=== PATIENT | male | born 1945 | race Caucasian/White ===

== ENCOUNTER → 2016-12-17 | Outpatient (CLI) | payer BC ==
[~2016-12-17] MED LIST: CLB/200 PO; GLUCTAB7 PO; IBUP-103 PO; MULT-190 PO; MULT-506 PO; PSYL55.43 PO; TAMS0.4C38 PO
== END | disposition home or self-care (01) ==
LOC: C.RDSM 10:55
PROVIDERS: ATTEND Orthopaedic Surgery Sports Medicine
DX: M25.561 Pain in right knee (principal)

== ENCOUNTER → 2017-01-08 | Outpatient (CLI) | payer BC ==
[2017-01-08 10:47] LABS: BLOOD UREA NITROGEN 14 mg/dl (7-18); BUN/CREATININE RATIO 18.7 (10-20); CARBON DIOXIDE 31 mmol/L (21-32); CHLORIDE 106 mmol/L (98-107); CREATININE 0.74 mg/dl (0.60-1.40); GLUCOSE 94 mg/dl (70-99); SODIUM 142 mmol/L (136-145)
[2017-01-08 10:50] LABS: CHOLESTEROL 195 mg/dl (0-200); HDL CHOLESTEROL 66 mg/dl; LDL CHOLESTEROL CALCULATED 112 mg/dl; TRIGLYCERIDES 85 mg/dl (0-150); VERY LOW DENSITY LIPOPROT CALC 17 mg/dl
== END | disposition home or self-care (01) ==
LOC: C.LAB 09:25
PROVIDERS: ATTEND Internal Medicine
DX: Z13.1 Encounter for screening for diabetes mellitus (principal); Z13.220 Encounter for screening for lipoid disorders

== ENCOUNTER → 2017-02-23 | Outpatient (CLI) | payer BC | END | disposition home or self-care (01) | LOC: C.LAB1850 13:10 | PROVIDERS: ATTEND Internal Medicine | DX: Z00.00 Encounter for general adult medical examination without abnormal findings (principal); Z11.59 Encounter for screening for other viral diseases ==

== ENCOUNTER → 2017-08-09 | Outpatient (CLI) | payer BC ==
[2017-08-09 10:01] LABS: ALT/SGPT 28 U/L (12-78); AST/SGOT 12 U/L (15-37); BLOOD UREA NITROGEN 16 mg/dl (7-18); BUN/CREATININE RATIO 18.5 (10-20); CALCIUM 8.9 mg/dl (8.5-10.1); CARBON DIOXIDE 28 mmol/L (21-32); CHLORIDE 105 mmol/L (98-107); CREATININE 0.84 mg/dl (0.60-1.40); GLUCOSE 95 mg/dl (70-99); POTASSIUM 3.8 mmol/L (3.5-5.1); SODIUM 137 mmol/L (136-145)
== END | disposition home or self-care (01) ==
LOC: C.LAB1850 08:45
PROVIDERS: ATTEND Internal Medicine
DX: M19.90 Unspecified osteoarthritis, unspecified site (principal); N40.0 Benign prostatic hyperplasia without lower urinary tract symptoms

== ENCOUNTER → 2017-11-17 | Outpatient (CLI) | payer BC ==
--- NOTE | 2017-11-17 14:00 | DIAGNOSTIC IMAGING REPORT ---
LEFT LOWER EXTREMITY VENOUS DOPPLER HISTORY: Left LEG PAIN,R/O DVT COMPARISON STUDY: None. FINDINGS: There is normal compressibility, flow, and augmentation within the left lower extremity deep venous system. Mild subcutaneous edema within the mid to distal medial thigh. There is also an oval-shaped 4.4 x 4.4 x 1.4 cm heterogeneous area within the deep subcutaneous fat of the anterior knee. This does not demonstrate color flow and favors a hematoma. IMPRESSION: 1. No DVT within the left lower extremity. 2. A 4.4 x 4.4 x 1.4 cm complex cystic area within the deep subcutaneous fat of the anterior knee. This favors a hematoma. Electronically signed by: Wilian Hess M.D. 11/17/2017 1:58 PM Dictated Date/Time: 11/17/2017 1:56 PM
== END | disposition home or self-care (01) ==
LOC: C.ULTR 13:12
PROVIDERS: ATTEND Physician Assistant
DX: S80.02XA Contusion of left knee, initial encounter (principal); X58.XXXA Exposure to other specified factors, initial encounter

== ENCOUNTER → 2017-11-17 | Outpatient (CLI) | payer BC ==
--- NOTE | 2017-11-17 10:57 | DIAGNOSTIC IMAGING REPORT ---
L KNEE 4 OR MORE CLINICAL HISTORY: LEFT KNEE PAIN COMPARISON STUDY: Left knee 02/17/2012. FINDINGS: Severe cartilage space narrowing with lusn-hk-amjv articulation within the right knee. There is 1 cm of lateral subluxation of the right tibia and relation to the femur. Mild cartilage space narrowing within the medial compartment of the left knee with small marginal osteophytes. No fracture or dislocation within the left knee. No significant left knee effusion. Anterior soft tissue swelling. IMPRESSION: 1. Anterior soft tissue swelling within the left knee. No fracture or dislocation within the left knee. 2. Severe right knee and mild left knee osteoarthritis. Electronically signed by: Wilian Hess M.D. 11/17/2017 10:55 AM Dictated Date/Time: 11/17/2017 10:53 AM
== END | disposition home or self-care (01) ==
LOC: C.RDSM 10:45
PROVIDERS: ATTEND Physician Assistant
DX: M25.562 Pain in left knee (principal); M17.0 Bilateral primary osteoarthritis of knee

== ENCOUNTER 2020-01-29 05:17 | Observation (INO) ==
--- NOTE | 2020-01-15 10:16 | PAT Medication Instructions ---
Medication Instructions Date of Service January 15, 2020 Home Medications celecoxib 200 mg capsule 200 mg PO DAILY PRN jgowszacsom-lvxkihzzz-fyd C-Mn 500 mg-400 mg capsule 2 cap PO DAILY htlqhvov-ikl-jzwvr acid 300 mcg-lycopene 600 mcg-lutein 300 mcg tablet 1 tab PO DAILY omega-3 fatty acids 1,000 mg capsule 1,000 mg PO BID tamsulosin 0.4 mg capsule 0.8 mg PO PM naproxen 250 mg PO BID PRN vitamins-lipotropics [Lipo-Flavonoid Plus] 1 tab PO DAILY ASK your surgeon for instructions celecoxib 200 mg capsule 200 mg PO DAILY PRN naproxen 250 mg PO BID PRN STOP taking 2 weeks before surgery (or as soon as possible if surgery is within 2 weeks) uqsxyltgdng-rpckfilum-vcw C-Mn 500 mg-400 mg capsule 2 cap PO DAILY atexjxkg-roh-vpomk acid 300 mcg-lycopene 600 mcg-lutein 300 mcg tablet 1 tab PO DAILY omega-3 fatty acids 1,000 mg capsule 1,000 mg PO BID vitamins-lipotropics [Lipo-Flavonoid Plus] 1 tab PO DAILY Take evening before surgery tamsulosin 0.4 mg capsule 0.8 mg PO PM Other Notes If you have any questions please call us at [phone] or [phone] or [phone] or [phone]
--- NOTE | 2020-01-17 12:22 | Anesthesiology Consultation ---
Date of Service January 17, 2020 Assessment & Plan (1) Encounter for pre-operative examination: - PCP office visit: 01/09/20: "Blood pressures have been controlled outside the office and stable today. He he has had no shortness of breath chest discomfort no exertional signs or symptoms. Medically stable pending preoperative testing which is upcoming once schedule is set firmly." Per PAT assessment on 01/16: Travel screen- traveled to [place] 1 week ago ("stayed in car" while worked at her [employer]/wore mask/travel will be >2 weeks from [facility]), traveled to [place] 01/12 ("looked a ballpark"/no contact with other people). No known COVID positive contacts. No history of COVID testing. No current COVID related symptoms. Per surgeon, patient is scheduled to have COVID testing 3-4 days prior to surgery. Chart Review Chart Review: Acceptable Risk for Surgery (pending preop COVID testing (surgeon ordered)) and Patient seen in Pre Admission Testing Teaching & Discussion Pre-Anesthesia Teaching/Discussion Notes: Instructed NPO after midnight before surgery,except medications with 15 cc of water. Medication instructions provided according to the PAT guidelines. History Surgery Operation Date: 01/29/20 07:00 Proposed Procedures p Right Total Knee Arthroplasty - Chong Sarah Gutierrez MD Height/Weight Height: 5 ft 9 in Weight: 109.6 kg Allergies Allergy/AdvReac Type Severity Reaction Status Date / Time ketoprofen AdvReac Unknown GI UPSET Verified 01/10/20 12:31 meloxicam AdvReac Unknown GI UPSET Verified 01/10/20 12:31 Medications Home Medications Medication Instructions Recorded Confirmed Last Taken celecoxib 200 mg capsule 200 mg PO DAILY PRN 05/09/19 01/10/20 Unknown ifsnsqpyvoy-ogzamniox-xon C-Mn 500 2 cap PO DAILY cap 05/09/19 01/10/20 Unknown mg-400 mg capsule rvlbbnqc-pcg-vqhes acid 300 1 tab PO DAILY tab 05/09/19 01/10/20 Unknown mcg-lycopene 600 mcg-lutein 300 mcg tablet omega-3 fatty acids 1,000 mg 1,000 mg PO BID cap 05/09/19 01/10/20 Unknown capsule tamsulosin 0.4 mg capsule 0.8 mg PO PM cap 05/09/19 01/10/20 Unknown naproxen 250 mg PO BID PRN 01/10/20 01/10/20 Unknown vitamins-lipotropics 1 tab PO DAILY 01/10/20 01/10/20 Unknown [Lipo-Flavonoid Plus] Past Medical History Medical History BPH (benign prostatic hyperplasia) Cataract GERD (gastroesophageal reflux disease) diet controlled History of hypertension Obesity Osteoarthritis Tinnitus Exercise / Class Metabolic Activity III < 4 Walking/Shop/Light housework (uses cane PRN) Past Family History Family History Mother Cardiac disorder Aunt Diabetes Grandmother (Maternal) Diabetes Uncle Melanoma Other No family history of adverse response to anesthesia Denies family history of Ovarian cancer Prostate cancer Myocardial infarction Breast cancer Colorectal cancer Past Surgical History Surgical History H/O oral surgery History of colonoscopy S/P inguinal hernia repair left S/P mastectomy, bilateral elective- 1969 S/P surgical removal of pilonidal cyst Past Anesthesia History No Hx of Anesthesia Complications and No Family Hx of Anesthesia Complications History of PONV No Hx of PONV and Hx of Motion Sickness (mild) Social History Smoking Status: Former smoker tobacco type: cigarettes Do You Dip or Chew Tobacco: No Smoking End Date: quit many years ago Hx Alcohol Use: Yes (social) Alcohol type: beer, wine and hard liquor alcohol intake frequency: 0-2 drinks per day (2 drinks/day) Hx Substance Use: No substance use type: does not use Review of Systems Patient denies chest pain, shortness of breath, fever, chills, cough, wheezing, palpitations. Physical Exam Vital Signs VITALS BP 170/92 P 79 TEMP 98.3 SP02 93%RA RESP 18 PHYSICAL Full neck and c-spine range of motion. Full TMJ range of motion. TMD 3 finger breaths Mallampati Score 3 Dentition: intact, several crowns Lungs: clear throughout to auscultation Cardiac: regular rate and rhythm, no murmurs noted Spine: normal Carotid arteries: negative bruit Extremities: no edema Testing Laboratory Results 01/17/20 12:46 01/17/20 12:46 PT 11.1 Seconds (9.0-12.0) 01/17/20 12:46 INR 1.1 (0.9-1.1) 01/17/20 12:46 APTT 26.9 Seconds (21.0-31.0) 01/17/20 12:46 Blood Type B Negative 01/17/20 12:46 Antibody Screen NEGATIVE 01/17/20 12:46 Electrocardiogram Date: 01/17/20 NSR at 76bpm. Minimal voltage criteria for LVH, may be normal variant. unconfirmed report*
[2020-01-17 13:16] LABS: Basophils # (auto) 0.02 K/uL (0-0.2); Basophils % (auto) 0.3 %; Eosinophils # (auto) 0.05 K/uL (0-0.5); Eosinophils % (auto) 0.8 %; Hematocrit (blood only) 45.8 % (42-52); Hemoglobin 15.8 g/dL (14.0-18.0); Immature Granulocytes # (auto) 0.01 K/uL (0.00-0.02); Immature Granulocytes % (auto) 0.2 %; Lymphocytes # (auto) 1.48 K/uL (1.2-3.4); Mean Corpuscular Hemoglobin 31.4 pg (25-34); Mean Corpuscular Hgb Conc 34.5 g/dL (32-36); Mean Corpuscular Volume 91.1 fL (80-100); Monocytes # (auto) 0.59 K/uL (0.11-0.59); Monocytes % (auto) 9.9 %; Neutrophils # (auto) 3.78 K/uL (1.4-6.5); Neutrophils % (auto) 63.8 %; Platelet Count 145 K/uL (130-400); RDW Coefficient of Variation 13.4 % (11.5-14.5); RDW Standard Deviation 44.1 fL (36.4-46.3); Red Blood Count 5.03 M/uL (4.7-6.1); White Blood Count 5.93 K/uL (4.8-10.8)
[2020-01-17 13:25] LABS: Albumin Level 4.1 gm/dl (3.4-5.0); BUN Creatinine Ratio 20.8 (10-20); Calcium 8.8 mg/dl (8.5-10.1); Creatinine Clr Calc Pharmacy 116.3 ml/min; Est GFR (African American) 109.2; Est GFR (Non-African American) 94.2; Potassium 4.2 mmol/L (3.5-5.1)
[2020-01-17 13:28] LABS: Bilirubin Direct 0.2 mg/dl (0-0.2); Bilirubin,Total 0.9 mg/dl (0.2-1); Total Protein 7.1 gm/dl (6.4-8.2)
[2020-01-17 13:36] LABS: INR 1.1 (0.9-1.1); Partial Thromboplastin Time 26.9 Seconds (21.0-31.0); Prothrombin Time 11.1 Seconds (9.0-12.0)
--- NOTE | 2020-01-17 16:28 | Electrocardiogram Report ---
Test Reason : Blood Pressure : / mmHG Vent. Rate : 076 BPM Atrial Rate : 076 BPM P-R Int : 180 ms QRS Dur : 114 ms QT Int : 398 ms P-R-T Axes : 071 -14 043 degrees QTc Int : 447 ms Normal sinus rhythm Minimal voltage criteria for LVH, may be normal variant Borderline ECG When compared with ECG of 15-AUG-2001 11:57, Vent. rate has increased BY 25 BPM Confirmed by Abiel Rodriguez ([id number]) on 01/17/2020 4:28:11 PM Referred By: Chong Gutierrez Confirmed By:Ebenezer Rodriguez
[2020-01-29] MEDS ORDERED: LR 500ML BOLUS, THEN 15ML/HR IV SCH (06:00)
[2020-01-29] MEDS ORDERED: TRANEXAMIC ACID 1,000 MG **IV Pre-op IV SCH (06:00)
[2020-01-29] MEDS ORDERED: CeleBREX 200 MG CAP PO SCH (06:00)
[2020-01-29] MEDS ORDERED: CEFAZOLIN 2000MG 2,000 MG/15 ML SYR IV SCH (06:00)
[2020-01-29] MEDS ORDERED: LR 60ML/HR IV SCH (06:00)
[2020-01-29] MEDS ORDERED: SCOPOLAMINE 1.5 MG TDSY TD SCH (06:00)
[2020-01-29] MEDS ORDERED: ROPIVACAINE 0.5% HCL/PF 150 MG, BUPIVACAINE 0.5% MPF 30 ML, EPINEPHrine 0.15 MG, Ketoro... INFIL SCH (06:00)
[2020-01-29] MEDS ORDERED: TRANEXAMIC ACID 1,000 MG **IV Intra-op IV SCH (06:10)
[2020-01-29] MEDS ORDERED: BUPIVACAINE 0.5 % 5 MG/1 ML PF 10ML VIAL ONE (06:24)
[2020-01-29] MEDS ORDERED: BUPIVACAINE 0.25% 30 ML VIAL ONE (06:25)
[2020-01-29] MEDS ORDERED: fentaNYL citrate 100 MCG/2 ML VIAL ONE (06:45)
[2020-01-29] MEDS ORDERED: MIDAZOLAM HCL 1 MG/ML 2ML VIAL ONE (06:45)
--- NOTE | 2020-01-29 06:46 | History & Physical Bridge Note ---
Date of Service January 29, 2020 History & Physical Bridge Note I have examined the patient, reviewed the History & Physical and in the interval since the performance of the History & Physical I have noted the following changes of clinical significance: no changes noted Patient is aware of the risks due to COVID-19. Patient is asymptomatic and tested negative for COVID-19.
[2020-01-29] MEDS ORDERED: ORTHO JOINT ANESTHETIC ONE (06:51)
[2020-01-29] MEDS ORDERED: ONDANSETRON INJ 2 MG/ML 2 ML VIAL IV PRN ×2 (07:44→10:38)
[2020-01-29] MEDS ORDERED: ePHEDrine sulfate 50 MG/ML AMP IV PRN (07:44)
[2020-01-29] MEDS ORDERED: ATROPINE SULFATE 0.1 MG/ML 10ML SYR IV PRN (07:44)
[2020-01-29] MEDS ORDERED: PROPOFOL IV EMULSION 10 MG/ML 20 ML VIAL IV ONE ×2 (08:12→09:36)
--- NOTE | 2020-01-29 10:18 | Post Operative Brief Note ---
Immediate Post Op Note v1 Date of Surgery January 29, 2020 Pre & Post Diagnosis Operation Date: 01/29/20 07:00 Pre-Op Diagnosis: Right Knee Osteoarthritis Post-Op Diagnosis: Right Knee Osteoarthritis I identified the patient and participated in the time-out.: Yes Procedure Operation Date: 01/29/20 07:00 Actual Procedures p Right Total Knee Arthroplasty(Right) - Chong Gutierrez MD Surgeon Chong Gutierrez MD Compliance Manager Jacquelin Stevens PA-C (No fellow avail) Estimated Blood Loss 100 Findings Consistent with Post-Op Diagnosis Fluids 2000 cc Specimens Right knee contents Anesthesia Type MAC Spinal Regional Complications none
--- NOTE | 2020-01-29 10:21 | Operative Report ---
Post Operative Report Pre & Post Diagnosis Operation Date: 01/29/20 07:00 Pre-Op Diagnosis: Right Knee Osteoarthritis Post-Op Diagnosis: Right Knee Osteoarthritis I identified the patient and participated in the time-out.: Yes Procedure Operation Date: 01/29/20 07:00 Actual Procedures p Right Total Knee Arthroplasty(Right) - Chong Gutierrez MD Surgeon Chong Gutierrez MD Master Rigger Jacquelin Stevens PA-C (No fellow avail) Estimated Blood Loss 100 Findings See Below Right knee severe degenerative changes, with full thickness loss of articular cartilage MFC, marginal osteophytes tri-compartments and intercondylar notch. Degenerative medial meniscus. Grade 2 changes Lateral compatment. Grade II-III patellofemoral compartment. Pre-op ROM: 5-120 degrees. Post-op ROM: 0-125 degrees. Fluids 2000 cc Specimens Right knee contents Drains n/a Anesthesia Type MAC Spinal Regional Complications none Indications This is a 75-year-old male who has clinical and radiographic findings consistent with osteoarthritis of the a right knee. I recommended that a right total knee replacement be performed. The patient understands the risks of surgery, which include but not limited to: bleeding, infection, re-operation, damage to nerves and arteries, continued knee pain, knee stiffness, DVT, and . The patient understands all of these instructions and explanations, all of his questions have been satisfactorily addressed and the patient has elected to proceed. Informed consent was signed. Description of Procedure IMPLANTS: 1. Femur: Triathlon #5 Right PS. 2. Tibia: Triathlon #5 Munday. 3. Insert: Triathlon #5 x 13 mm PS X3 poly. 4. Patella: Triathlon A29 x 9 mm X3 poly. 5. Simplex cement. PROCEDURE: The patient was taken to the Operating Room and placed in the supine position after spinal and adductor canal nerve block was administered. My initials and a multidisciplinary time-out were used to identify the right leg as the correct operative limb. A tourniquet was placed high in the thigh. Prior to the incision, 2 grams of intravenous Ancef were given. The right leg was then prepped and draped in a standard sterile fashion. An Esmarch was used to exsanguinate the leg and the tourniquet was inflated to 250 mmHg. The planned mid-line 20 cm incision was created exposing the extensor mechanism. The medial parapatellar arthrotomy was made and the patella was everted. The patella was addressed first. It was prepared by reaming from 22 mm down to 12 mm. An A29 button was found to fit best. The peg holes were made in the standard fashion. The femur was addressed next and the guide wander was placed intramedullary. The initial cutting block was placed with 5 degrees of valgus and removing 10 mm for the anterior cut. The cut was made and the 4-in-1 cutting block for a size 5 femur was placed. These cuts and the cuts to place the box were made in the standard fashion. Our attention was then drawn to the tibia cut with the external cutting guide, taking 4 mm from the medial low side. There was sufficient extension and flexion gap to fit a 13 mm spacer. A #5 Tibial baseplate fit well. A trial with a 13 mm spacer showed excellent stability in both flexion and extension, with good ligament balance. Range of motion of 0-125 degrees. The tibial baseplate was pinned and the final preparation for the keel and stem was made. All the trial components were tested again, with good stability and thumbs free tracking of the patella. All components were removed. The tourniquet was deflated. Hemostasis was obtained. 90 ml of total knee cocktail were injected into the soft tissues and periosteum. A bone plug was placed in the femur and covered with bone wax. After a 15 minute break, the limb was exsanguinated again and the tourniquet was re-inflated. All surfaces were copiously irrigated prior to placement of the components. The femoral component and Tibial baseplate were placed first and an 11 mm trial placed. Next the patellar button was placed using the Simplex cement. Once the cement had cured, trialing an 11 and a [address], the 13 mm t rial poly had excellent range of motion and stability. The 13 mm X3 poly was placed. The extensor mechanism was closed with 1-0 and 0 Vicryl with the knee bent approximately 60 degrees in a standard fashion. The peritenon and deep fascia was closed with 2-0 Vicryl. The subcutaneous layer was closed with 3-0 Vicryl. The skin was closed with Zipline. The limb was cleaned and dried. 4x4 dressing was placed over top followed by ABDs, sterile Webril, and a foot to thigh Rm bandage. The patient was then transferred to the Recovery Room in stable condition. The sponge and needle counts were correct. POST-OP INSTRUCTIONS: The patient will be WBAT. The patient will be admitted to the hospital. The patient will use the knee immobilizer when ambulating and standing until good quad control is achieved. Labs will be obtained during the stay. DVT prophylaxis will included aspirin for 6 weeks, TEDs, and mechanical foot pumps. The dressing will be changed prior to their discharge or postop day #2 and covered with a Silverlon dressing, whichever comes first. I attest to the content of the Intraoperative Record and any orders documented therein. Any exceptions are noted below.
[2020-01-29] MEDS ORDERED: bisacodyL 10 MG SUPP PR PRN (10:38)
[2020-01-29] MEDS ORDERED: NALOXONE HCL 0.4 MG/1 ML VIAL/CARP IV PRN (10:38)
[2020-01-29] MEDS ORDERED: METOCLOPRAMIDE HCL INJ 5 MG/ML 2 ML VIAL IV PRN (10:38)
[2020-01-29] MEDS ORDERED: ALUMINUM/MAGNESIUM SUSP 30 ML UDC PO PRN (10:38)
[2020-01-29] MEDS ORDERED: HYDROmorphone INJ 0.5 MG/0.5 ML SYR IV PRN (10:38)
[2020-01-29] MEDS ORDERED: DiphenhydrAMINE HCL 50 MG/ML VIAL IV PRN (10:38)
[2020-01-29] MEDS ORDERED: MAGNESIUM HYDROXIDE SUSP 30 ML UDC PO PRN (10:38)
--- NOTE | 2020-01-29 10:49 | Operative Report ---
Post Operative Report Pre & Post Diagnosis Operation Date: 01/29/20 07:00 Pre-Op Diagnosis: Right Knee Osteoarthritis Post-Op Diagnosis: Right Knee Osteoarthritis I identified the patient and participated in the time-out.: Yes Procedure Operation Date: 01/29/20 07:00 Actual Procedures p Right Total Knee Arthroplasty(Right) - Chong Gutierrez MD Surgeon Chong Gutierrez MD Social Service Technician Jacquelin Stevens PA-C (No fellow avail) Estimated Blood Loss 100 Findings Consistent with Post-Op Diagnosis Specimens soft tissue and bone Complications none Indications See Dr Gutierrez operatve report Description of Procedure See Dr Gutierrez operative report. I was assistant teacher primary during entire case to include prepping, draping, limb and instrument handling, wound closure, dressings. I attest to the content of the Intraoperative Record and any orders documented therein. Any exceptions are noted below.
--- NOTE | 2020-01-29 10:51 | XRay Report ---
XR knee RT 1 or 2V routine CLINICAL HISTORY: Surgical Post Op COMPARISON: None. DISCUSSION: Anatomic alignment posttotal right knee arthroplasty. Good contact between prosthetic and underlying bone. Expected soft tissue postoperative change IMPRESSION: Anatomic alignment posttotal right knee arthroplasty. ACT 112: Negative or not required by law. The above report was generated using voice recognition software. It may contain grammatical, syntax or spelling errors. Electronically signed by: Heri Pfeiffer M.D. 01/29/2020 10:50 AM
[2020-01-29] MEDS: SODIUM CHLORIDE 0.9% 1000ML 1,000 ML IV SCH ×2 (12:30→21:17)
--- NOTE | 2020-01-29 12:30 | Anesthesiology Progress Note ---
Date of Service January 29, 2020 Anesthesia Post Procedure Vital Signs Vital Signs: Temp Pulse Pulse Pulse Resp BP BP 01/29/20 12:28 68 17 155/78 H 01/29/20 11:48 36.3 C L 62 17 152/79 H 01/29/20 11:18 36.4 C L 66 18 170/92 H 01/29/20 10:55 67 19 142/82 H 01/29/20 10:45 68 20 148/85 H 01/29/20 10:35 68 16 139/80 01/29/20 10:29 36.4 C L 75 12 140/71 01/29/20 05:54 36.9 C 94 H 20 159/97 H Pulse Ox 01/29/20 12:28 96 01/29/20 11:48 100 01/29/20 11:18 98 01/29/20 10:55 96 01/29/20 10:45 94 01/29/20 10:35 96 01/29/20 10:29 96 01/29/20 05:54 99 Pain Intensity Right Knee: Pain Intensity: 0 Transfer of Care Handoff Completed per policy Notes Mental Status: alert / awake / arousable and participated in evaluation Nausea / Vomiting: adequately controlled Pain: adequately controlled Airway Patency, RR, SpO2: stable & adequate BP & HR: stable & adequate Hydration State: stable & adequate Neuraxial Anesthesia: was administered and sensory block is resolving Anesthetic Complications: no major complications apparent and Pt Satisfied with anesthetic care
[2020-01-29] MEDS: ACETAMINOPHEN 500 MG TAB PO SCH ×2 (14:20→22:50)
[2020-01-29] MEDS: OXYCODONE HCL IR 5 MG TAB (IMMEDIATE RELEASE) PO PRN ×2 (15:10→22:53)
[2020-01-29] MEDS: CEFAZOLIN 2000MG 2,000 MG/15 ML SYR IV SCH (16:35)
[2020-01-29] MEDS: CHECK SCOPOLAMINE PATCH PLACEMENT SCH (16:36)
[2020-01-29] MEDS ORDERED: NURSING DECISION MEDICATION ONE (16:41)
[2020-01-29] MEDS ORDERED: COUGH DROP (SUGAR FREE) LOZ 24 LOZ/1 BOX BUCCAL PRN (16:45)
--- NOTE | 2020-01-29 16:48 | Orthopedic Progress Note ---
Date of Service January 29, 2020 Assessment & Plan (1) Osteoarthritis: POD #0 s/p R TKA, doing well. Resume diet. Continue pain control. WBAT RLE with Walker. Immobilizer when ambulating until demonstrates good quad tone, no more than 48 hours. PT/OT. DVT Prophylaxis: ASA BID x 6 weeks. TEDs for 2 weeks. Foot pumps while in hospital. Dressing: change to Silverlon prior d/c or POD #2 whichever comes first. D/C planning. Present on Admission?: Yes Admission and Anticipated Discharge Date Admission Date: January 29, 2020 Subjective Doing well Review of Systems Review of Systems: All systems reviewed & are unremarkable except as noted in HPI & below Physical Exam Physical Exam: RLE: dressing clean, dry, intact. BCR < 2 sec. Sensation to light touch intact. wiggling toes and ankle. calf soft and non-tender. Results & Data ([facility]) Vital Signs (Past 12 Hours) Vital Signs Temp Pulse Pulse Pulse Resp BP BP 01/29/20 15:01 36.5 C 63 18 135/88 01/29/20 14:18 76 16 143/82 H 01/29/20 13:20 78 16 125/73 01/29/20 12:28 68 17 155/78 H 01/29/20 11:48 36.3 C L 62 17 152/79 H 01/29/20 11:18 36.4 C L 66 18 170/92 H 01/29/20 10:55 67 19 142/82 H 01/29/20 10:45 68 20 148/85 H 01/29/20 10:35 68 16 139/80 01/29/20 10:29 36.4 C L 75 12 140/71 01/29/20 05:54 36.9 C 94 H 20 159/97 H Pulse Ox 01/29/20 15:01 92 01/29/20 14:18 95 01/29/20 13:20 97 01/29/20 12:28 96 01/29/20 11:48 100 01/29/20 11:18 98 01/29/20 10:55 96 01/29/20 10:45 94 01/29/20 10:35 96 01/29/20 10:29 96 01/29/20 05:54 99 Diagnostic Findings RADIOGRAPHS: AP & Lateral Right knee show a well cemented Right TKA.
[2020-01-29] MEDS: FERROUS GLUCONATE 324 MG TAB PO SCH (18:07)
[2020-01-29] MEDS: ASCORBIC ACID 500 MG TAB PO SCH (18:08)
[2020-01-29] MEDS ORDERED: TAMSULOSIN HCL 0.4 MG CAP PO SCH (21:00)
[2020-01-29] MEDS ORDERED: SENNA 8.6 MG TAB PO SCH (21:00)
[2020-01-29] MEDS: PSYLLIUM 58.6% POWDER PACKET PO SCH (21:09)
[2020-01-29] MEDS: OMEGA-3 (PURIFIED FISH OIL) 1 GM CAP PO SCH (21:09)
[2020-01-29] MEDS: DOCUSATE SODIUM 100 MG CAP PO SCH (21:10)
[2020-01-30] MEDS: CEFAZOLIN 2000MG 2,000 MG/15 ML SYR IV SCH (00:05)
[2020-01-30] MEDS: OXYCODONE HCL IR 5 MG TAB (IMMEDIATE RELEASE) PO PRN ×2 (03:21→09:23)
[2020-01-30] MEDS: ACETAMINOPHEN 500 MG TAB PO SCH ×2 (05:30→13:17)
[2020-01-30 06:11] LABS: Hematocrit (blood only) 34.9 % (42-52); Mean Corpuscular Hemoglobin 31.5 pg (25-34); Mean Corpuscular Hgb Conc 34.4 g/dL (32-36); Mean Corpuscular Volume 91.6 fL (80-100); Mean Platelet Volume 10.8 fL (7.4-10.4); Platelet Count 131 K/uL (130-400); RDW Coefficient of Variation 13.3 % (11.5-14.5); RDW Standard Deviation 44.6 fL (36.4-46.3); Red Blood Count 3.81 M/uL (4.7-6.1); White Blood Count 10.94 K/uL (4.8-10.8)
[2020-01-30 06:33] LABS: BUN Creatinine Ratio 17.3 (10-20); Calcium 8.2 mg/dl (8.5-10.1); Creatinine Clr Calc Pharmacy 107.9 ml/min; Est GFR (African American) 106.1; Est GFR (Non-African American) 91.5; Potassium 4.2 mmol/L (3.5-5.1)
[2020-01-30] MEDS ORDERED: MULTIVITAMIN TAB PO SCH (09:00)
[2020-01-30] MEDS ORDERED: MULTIVIT MIN FA LYCOPEN LUTEIN PO SCH (09:00)
[2020-01-30] MEDS ORDERED: ASPIRIN 81 MG ECTAB PO SCH (09:00)
[2020-01-30] MEDS ORDERED: VITAMINS LIPOTROPICS PO SCH (09:00)
[2020-01-30] MEDS: DOCUSATE SODIUM 100 MG CAP PO SCH (09:23)
[2020-01-30] MEDS: OMEGA-3 (PURIFIED FISH OIL) 1 GM CAP PO SCH (09:24)
[2020-01-30] MEDS: ASCORBIC ACID 500 MG TAB PO SCH (09:24)
[2020-01-30] MEDS: CHECK SCOPOLAMINE PATCH PLACEMENT SCH ×2 (09:24)
[2020-01-30] MEDS: FERROUS GLUCONATE 324 MG TAB PO SCH (09:24)
[2020-01-30] MEDS: PSYLLIUM 58.6% POWDER PACKET PO SCH (09:25)
--- NOTE | 2020-01-30 09:40 | Orthopedic Progress Note ---
Date of Service January 30, 2020 Assessment & Plan (1) Osteoarthritis: POD #1 s/p R TKA, Continue regular diet. Continue pain control. WBAT RLE with Walker. Immobilizer when ambulating until demonstrates good quad tone, no more than 48 hours. PT/OT. DVT Prophylaxis: ASA 81mg BID x 6 weeks. TEDs for 2 weeks. Foot pumps while in hospital. Dressing changed to compression dressing with 4x4s and ABDs. Rm from toes to thigh. Will check on patient this PM. IF dressings intact, will plan on DC today in PM after seen by PT and case management and f/u in office on Tuesday for wound check and change to Silverlon. If dressings continue to be saturated may recommend another night in hospital. D/C planning : Pt wishes to go home with HHPT. I, Dr. Gutierrez, saw and examined the patient and agree with the above findings and plan of care discussed with my PA. Patients dressing was intact this pm. Ok to discharge home today. Admission and Anticipated Discharge Date Admission Date: January 29, 2020 Subjective Patient sitting up in bed eating breakfast. Has been to bathroom twice. Had bowel movement and able to urinate. Took 2 doses oy oxycodone since surgery. Pain fairly controlled. Tolerating PO diet and fluids. His dressing was reinforced early this AM by nursing due to saturated dressings. PT/OT and case liner havent yet seen patient today. Denies f/c/s, CP, SOB, B/B issues, N/V, lightheadedness or dizziness. Physical Exam Physical Exam: Right post op dressing saturated with blood thru RM and reinforced dressing. Upon removal, zip line intact. Distal > proximal area of drainage noted. NV intact to B LE other than altered sensation around R knee incision. Palpable DP and PT pulses B. B calves are soft and neg suzanne. Patient able to wiggles toes and ankles. Brisk capillary refill. 1+ pitting edema. B foot pumps on. L LE TEDS donned. Results & Data ([facility]) Vital Signs (Past 12 Hours) Vital Signs Temp Pulse Resp BP Pulse Ox 01/30/20 07:05 37.0 C 81 18 136/78 91 01/30/20 02:56 36.8 C 82 16 145/79 H 92 01/29/20 23:06 36.8 C 68 16 164/92 H 95 Laboratory Results 01/30/20 01/30/20 Range/Units 05:33 05:33 WBC 10.94 H (4.8-10.8) K/uL RBC 3.81 L (4.7-6.1) M/uL Hgb 12.0 L (14.0-18.0) g/dL Hct 34.9 L (42-52) % MCV 91.6 (80-100) fL MCH 31.5 (25-34) pg MCHC 34.4 (32-36) g/dL RDW Std Deviation 44.6 (36.4-46.3) fL RDW Coeff of Florin 13.3 (11.5-14.5) % Plt Count 131 (130-400) K/uL MPV 10.8 H (7.4-10.4) fL Sodium 138 (136-145) mmol/L Potassium 4.2 (3.5-5.1) mmol/L Chloride 107 (98-107) mmol/L Carbon Dioxide 23 (21-32) mmol/L Anion Gap 8.0 (3-11) BUN 13 (7-18) mg/dl Creatinine 0.74 (0.6-1.4) mg/dl Est Cr Clr Drug Dosing 107.9 ml/min Est GFR ( Amer) 106.1 Est GFR (Non-Af Amer) 91.5 BUN/Creatinine Ratio 17.3 (10-20) Glucose 105 H (70-99) mg/dl Calcium 8.2 L (8.5-10.1) mg/dl
--- NOTE | 2020-01-30 15:51 | Discharge Summary ---
Date of Service January 30, 2020 Principal Diagnosis Right Knee Osteoarthritis; S/P Right Total Knee Replacement Discharge Data Allergies Allergy/AdvReac Type Severity Reaction Status Date / Time ketoprofen AdvReac Mild GI UPSET Verified 01/29/20 05:49 meloxicam AdvReac Mild GI UPSET Verified 01/29/20 05:49 Consultations 01/29/20 10:38 Consult Case Management - Discharge Planning Routine Procedures Performed Operation Date: 01/29/20 07:00 Actual Procedures p Right Total Knee Arthroplasty(Right) - Chong Gutierrez MD Ordered Studies 01/29/20 05:00 US - OR guided needle placemen Routine Hospital Course (1) Osteoarthritis: 75 yr old man admitted for 23hour observation to [facility] s/p RTKR on 01-29-20. Spinal anesthesia. Ancef pre and post-op. Tolerated procedure and anesthesia without complications. While in-house DVT prophylaxis included ASA 81mg BID, TEDS, and foot pumps. Patient's pain controlled with PO meds. Tolera robi PO diet and fluids. Able to void and had bowel movement. Received physical therapy WBAT RLE with walker with knee immobilizer x 48hs post-op. Seen by social services specialist. Patients post-op labs WNL and VS stable . Patient did have suturation of blood through dressing which was reinforced early AM POD 1. On POD 1, dressings were changed to compression dressings and no further saturation noted. Patient deemed stable for discharge on POD 1 in afternoon. He will go home with PT. Dressing to remain on clean, and dry until seen in office on 01-28 for wound check and dressing change to silverlon wateproof dressing. Patient to wear TEDS x 2wks. ASA 81mg BID x 6wks. WBAT with walker as needed with knee immobilizer for 48hrs when ambulating or until good control. Continue ice for pain and swelling. Additional meds ordered include Oxycodone for severe pain, tylenol for mild to moderate pain, Vit C x 2wks, and Iron x 2wk. Scripts were sent to his pharmacy. Patient advised to call office with any questions or concerns at [phone]. Please see Discharge Plan. Total Time Total Time Spent Total Time Spent (In Minutes): 20minutes Discharge Plan Discharge Items Patient Disposition: Home - Home Health Services Reason For Visit: Right Knee Osteoarthritis Discharge Diagnosis: S/P Right total knee Arthroplasty Activity: Per Instructions section Bathing Comment: keep dressings and SPENSRE dry on until follow on Tuesday 6-5 Exercise Comment: per physical therapy protocol Driving/Machine Use: wait until seen in office Weightbearing: Full weightbearing Weightbearing Comment: to right leg with use of walker as needed Non-emergency contact: Surgeon Call non-emergency contact if: your pain is not controlled, your temperature is above 101.5, your wound has increased redness and your wound has increased drainage Follow-up/Referrals: Pro,Skyler Zhang MD [Primary Care Provider] - Chong Gutierrez MD [Physician] - 02/01/20 1:00 pm (with Farheen Stevens PA-C for dressing change) Diet: Regular Addtl Attending Provider Instructions: Post-operative Instructions Pain Expect to be in a fair amount of pain after surgery. Remember, our goal is not to eliminate your pain, but to make it tolerable. It is a good idea to stay ahead of your pain by taking the medications you were prescribed once you get home. Typically, the pain starts improving 3-7 days after surgery. You should start weaning off the narcotic pain medication (oxycodone) as soon as your pain improves. Please call our office if your pain is not adequately controlled. You can take tylenol 1000mg every 8hrs for mild to moderate pain. Ice Ice your operative site at least 5 times a day for 15-30 minutes at a time. Make sure you have a thin cloth between the ice or cooling unit and your skin to prevent gilliam bite. This is especially important if you received a nerve block. Continue icing your operative site for the first 5-7 days after surgery, then as needed. Diet/Nausea/Vomiting Start by drinking clear liquids and eating crackers. If you can tolerate this, then you may resume your normal diet. If you feel nauseated or vomit, take Zofran/ondansetron (if prescribed). Please call our office if you have intractable nausea or vomiting, or, if after hours, you may go to the Emergency Room for help. Constipation Constipation is a common side effect of narcotic pain medication. If you have not had a bowel movement within 2 days after surgery, we recommend purchasing an over the counter laxative such as Milk of Magnesia, Dulcolax, or Miralax from a local pharmacy, and taking it as instructed. Call our clinic if any questions. Weight bearing and Range of Motion. Weightbearing as tolerated with walker. No restrictions with range of motion. *KNEE IMMOBILIZER x 48hrs AFTER SURGERY WHILE AMBULATING AND THEN CAN STOP (CONTINUE IF YOU DO NOT HAVE GOOD QUAD CONTROL)* Physical therapy Initially you will start with home health physical therapy. At our first visit with at our office we will provide you with script for outpatient physical therapy. Wound care and showering We will inspect your dressings and wound on 01-31 at 1pm. At that visit will plan to change to a waterproof silverlon dressing. Until then please keep dressing/SPENSER clean and dry. If you shower, you will need to cover with garbage bag or such. It is normal to see some dried blood on the dressing. However, if it becomes saturated please call the office. ROBI stockings If you were given white stockings, these are to be worn at all times except to shower and sleep (on both legs) for the first 2 weeks after surgery. We will discuss removal at your first follow-up appointment. Driving You may not drive while taking narcotic pain medication. We will discuss return to driving at your first follow-up appointment. Return To Work Your return to work depends on what surgery was done and what type of work you do. Please bring any paperwork your employer needs completed to your first post-operative visit. Also, bring a description of your job duties, as this hel ps us to understand what risks you may face at work. Travel Avoid long distance travel (greater than 1 hour) in airplanes and cars for the first 6 weeks after surgery if possible. If you must travel, please let us know so we can discuss additional measures to prevent blood clots. Follow-up Scheduled with Farheen Stevens PA-C on 01-31 at 1pm The above appointment is for a wound check and dressing change. When to call the office [phone] It is normal to have swelling and bruising in the limb that was operated on. This will improve with time. It is also normal to have fevers for the first 2 days after surgery. Reasons you should call your doctor include: Uncontrolled pain; Nausea, vomiting, or constipation that does not improve with medication; Fevers over 101.5, chills, sweats; Drainage or bleeding from the wound; Foul odor; Spreading areas of redness; Any other concerns. NEW MEDICATIONS: new medications will be sent to your pharmacy: oxycodone, iron, vit c, tylenol, aspirin. Pending Studies at Discharge: No Stand-Alone Forms: [facility], Opioid Pain Management, Smoking Cessation Medications and DC Order Prescriptions: New aspirin 81 mg Tablet,Delayed Release (Dr/Ec) 81 mg PO BID 42 Days Qty: 84 RF: 0 acetaminophen 500 mg Tablet 1,000 mg PO Q8 PRN (Reason: pain) Qty: 60 RF: 0 ascorbic acid (vitamin C) [Vitamin C] 500 mg Tablet 500 mg PO BIDM 14 Days Qty: 28 RF: 0 oxycodone 5 mg Tablet 5 - 10 mg PO Q4H PRN (Reason: pain) Qty: 30 RF: 0 ferrous gluconate 324 mg (38 mg iron) Tablet 324 mg PO BIDM 14 Days Qty: 28 RF: 0 Continued tamsulosin 0.4 mg capsule 0.8 mg PO PM RF: 0 Centrum Silver Men 300-600-300 mcg tablet 1 tab PO DAILY RF: 0 oyxvtcskipy-cltyiajst-cnn C-Mn [Glucosamine-Chondroitin Complx] 500-400 mg capsule 2 cap PO DAILY RF: 0 omega-3 fatty acids [Fish Oil Concentrate] 1,000 mg capsule 1,000 mg PO BID RF: 0 celecoxib [Celebrex] 200 mg capsule 200 mg PO DAILY PRN (Reason: arthritis) RF: 0 Lipo-Flavonoid Plus 200-100 mg Tablet 1 tab PO DAILY RF: 0 Metamucil 3.4 gram/5.4 gram Powder 1 tbsp PO BID RF: 0 Discontinued naproxen 250 mg Tablet 250 mg PO BID PRN (Reason: Pain) RF: 0 Discharge Orders: Discharge Order (Routine); Ordered 01/30/20 Ordered By: Josy Gomez/Other Patient Handouts: Knee How Works, Arthroscopy Knee, Tips Knee Post Op, Knee Replacement Recovery at Home, Joint Surg Home Safety, Knee Replacement Knee Health Admission Data Admit Date/Time: 01/29/20 10:38 Attending Provider: Chong Gutierrez Admit Provider: Chong Gutierrez Primary Care Provider: Skyler Rodriguez Other Providers: [facility],Home Healthcare Other Interventions: Discharge Summary Assessment (RN) Last Done: 01/30/20 13:40 DC Date/Time DO NOT enter until pt leaves facility: 01/30/20 15:05
== END 2020-01-30 15:05 | disposition home health service (06) ==
LOC: 3N 05:17 → ASU 05:17

== ENCOUNTER 2020-12-16 05:10 | Observation (INO) ==
--- NOTE | 2020-11-26 10:01 | PAT Medication Instructions ---
Medication Instructions Date of Service November 26, 2020 Home Medications Medication Instructions Recorded diphenhydramine 25 2 tab PO .qhs 30 Days #60 tab 04/28/20 mg-acetaminophen 500 mg tablet celecoxib 200 mg capsule 200 mg PO DAILY PRN #90 cap 05/27/20 famotidine 40 mg tablet 60 mg PO DAILY 90 Days #135 tab 05/27/20 pchgsuiyhae-hasohbibj-wgf C-Mn 500 mg-400 mg capsule 1 cap PO BID svoxzosk-fwu-cwoii acid 300 mcg-lycopene 600 mcg-lutein 300 mcg tablet 1 tab PO QAM Lipo-Flavonoid Plus 1 tab PO BID Metamucil 1 tbsp PO BID diphenhydramine 25 mg-acetaminophen 500 mg tablet 2 tab PO .qhs polyethylene glycol 3350 17 gram/dose oral powder 17 gm PO DAILY PRN tamsulosin 0.4 mg capsule 0.4 mg PO BID celecoxib 200 mg capsule 200 mg PO DAILY PRN famotidine 40 mg tablet 60 mg PO DAILY acetaminophen [Tylenol Extra Strength] 500 mg PO QID PRN diclofenac sodium [Voltaren] 4 g TOPICAL QID PRN lisinopril 5 mg PO QAM melatonin 5 mg PO HS ASK your surgeon for instructions celecoxib 200 mg capsule 200 mg PO DAILY PRN STOP taking 2 weeks before surgery (or as soon as possible if surgery is within 2 weeks) ueihijvawjf-wdslzhfvt-otw C-Mn 500 mg-400 mg capsule 1 cap PO BID tpdlcgec-cmv-srpca acid 300 mcg-lycopene 600 mcg-lutein 300 mcg tablet 1 tab PO QAM Lipo-Flavonoid Plus 1 tab PO BID STOP taking 24 hours before surgery diclofenac sodium [Voltaren] 4 g TOPICAL QID PRN DO NOT take the morning of surgery Metamucil 1 tbsp PO BID polyethylene glycol 3350 17 gram/dose oral powder 17 gm PO DAILY PRN lisinopril 5 mg PO QAM Take morning of surgery With a small sip of water, OTHERWISE NOTHING TO EAT OR DRINK AFTER MIDNIGHT: tamsulosin 0.4 mg capsule 0.4 mg PO BID acetaminophen [Tylenol Extra Strength] 500 mg PO QID PRN (okay to take up to 4 h ours prior to surgery if needed) famotidine 40 mg tablet 60 mg PO DAILY Take evening before surgery Metamucil 1 tbsp PO BID diphenhydramine 25 mg-acetaminophen 500 mg tablet 2 tab PO .qhs polyethylene glycol 3350 17 gram/dose oral powder 17 gm PO DAILY PRN (if needed) tamsulosin 0.4 mg capsule 0.4 mg PO BID acetaminophen [Tylenol Extra Strength] 500 mg PO QID PRN(if needed) melatonin 5 mg PO HS Other Notes If you have any questions please call us at [phone] or [phone] or [phone] or [phone]
--- NOTE | 2020-11-27 11:11 | Anesthesiology Consultation ---
Date of Service November 27, 2020 Assessment & Plan (1) Encounter for pre-operative examination: COVID Status: As of 11/27 assessment, patient denies travel to endemic area, known exposure/sick contacts, or symptoms of COVID19. Patient instructed that they and their household members must follow strict social distancing guidelines, wear a mask in public and avoid travel/events/gatherings for 14 days prior to surgery. Patient and his will be going to [place] 12/01-12/04, staying at a hotel and touring the area (shopping/restaurants). Patient was advised to be extremely cautious, especially at restaurants. Preoperative COVID19 testing to be completed 12/09, which will be 5 days after his return from [place], so any exposure will likely show up on the test. Patient made aware to self-isolate as much as possible between COVID testing and surgery (he states he will strictly quarantine). Patient is fully vaccinated. S/P R TKA 01/29/20 @ [facility] -- SAB + AC block, no complications, patient was very pleased with anesthetic. Chart Review Chart Review: Acceptable Risk for Surgery (pending PCP clearance) and Patient seen in Pre Admission Testing Teaching & Discussion Instructed NPO after midnight before surgery, except medications with 15 cc of water. Medication instructions provided according to the PAT guidelines. History Surgery Operation Date: 12/16/20 07:00 Proposed Procedures p Left Total Knee Arthroplasty - Chong Sarah Gutierrez MD Height/Weight Height: 5 ft 10.5 in Weight: 109.2 kg Allergies Allergy/AdvReac Type Severity Reaction Status Date / Time ketoprofen AdvReac Mild GI UPSET Verified 11/17/20 12:14 meloxicam AdvReac Mild GI UPSET Verified 11/17/20 12:14 Medications Home Medications Medication Instructions Recorded Confirmed Last Taken lwvcgumgesw-kzxnzxmto-hqp C-Mn 500 1 cap PO BID cap 05/09/19 11/17/20 01/28/20 09:30 mg-400 mg capsule woyuaoqq-uzh-drkmy acid 300 1 tab PO QAM tab 05/09/19 11/17/20 01/28/20 09:30 mcg-lycopene 600 mcg-lutein 300 mcg tablet Lipo-Flavonoid Plus 1 tab PO BID 01/10/20 11/17/20 01/24/20 Metamucil 1 tbsp PO BID 01/29/20 11/17/20 01/28/20 21:30 diphenhydramine 25 2 tab PO .qhs 30 Days #60 tab 04/28/20 11/17/20 Unknown mg-acetaminophen 500 mg tablet polyethylene glycol 3350 17 17 gm PO DAILY PRN 04/28/20 11/17/20 Unknown gram/dose oral powder tamsulosin 0.4 mg capsule 0.4 mg PO BID cap 05/13/20 11/17/20 05/13/20 08:00 celecoxib 200 mg capsule 200 mg PO DAILY PRN #90 cap 05/27/20 11/17/20 Unknown famotidine 40 mg tablet 60 mg PO DAILY 90 Days #135 tab 05/27/20 11/17/20 Unknown acetaminophen [Tylenol Extra 500 mg PO QID PRN 11/17/20 11/17/20 Unknown Strength] diclofenac sodium [Voltaren] 4 g TOPICAL QID PRN 11/17/20 11/17/20 Unknown lisinopril 5 mg PO QAM 11/17/20 11/17/20 Unknown melatonin 5 mg PO HS 11/17/20 11/17/20 Unknown Past Medical History Medical History Benign prostatic hyperplasia with elevated prostate specific antigen (PSA) Bilateral tinnitus Cataract Eustachian tube dysfunction GERD (gastroesophageal reflux disease) HTN (hypertension), benign Obesity Osteoarthritis Sensorineural hearing loss (SNHL) of both ears Urinary frequency Exercise / Class Metabolic Activity II 4-5 Yardwork/Stairs/Walk up hill (No SOB or CP with 1 FOS, just needs hand rail or cane) Past Family History Family History Mother Cardiac disorder Aunt Diabetes Grandmother (Maternal) Diabetes Uncle Melanoma Other No family history of adverse response to anesthesia Denies family history of Ovarian cancer Prostate cancer Myocardial infarction Breast cancer Colorectal cancer Past Surgical History Surgical History H/O knee surgery right total replacement H/O oral surgery tooth extraction History of colonoscopy S/P inguinal hernia repair left S/P mastectomy, bilateral elective- 1969 S/P surgical removal of pilonidal cyst Past Anesthesia History No Hx of Anesthesia Complications and No Family Hx of Anesthesia Complications History of PONV No Hx of PONV and No Hx of Motion Sickness Social History Smoking Status: Former smoker tobacco type: cigarettes Do You Dip or Chew Tobacco: No Smoking End Date: 1969 Hx Alcohol Use: Yes Alcohol type: beer, wine and hard liquor alcohol intake frequency: 0-2 drinks per day (1-2) Hx Substance Use: No substance use type: does not use Review of Systems Pt denies any recent chest pain, shortness of breath, palpitations, cough, fever, URI, or uncontrolled acid reflux (controlled on Pepcid). Physical Exam Vital Signs BP: 153/90 (Pt takes BP every night, almost always normal) P: 71bpm SPO2: 97% RA T: 98.4 F R: 16 ENMT Mouth: + dental restorations (many crowns); no chipped teeth and no loose teeth Thyromental Distance: > or= 3.5 Finger Breadths Mallampati Class: II Neck normal visual inspection and + limited neck extension (mildly) Respiratory normal respiratory effort, lungs clear to auscultation Cardiovascular RRR, no murmur, no edema Testing Laboratory Results 11/27/20 11:35 11/27/20 11:35 PT 10.5 Seconds (9.0-12.0) 11/27/20 11:35 INR 1.0 (0.9-1.1) 11/27/20 11:35 APTT 26.4 Seconds (21.0-31.0) 11/27/20 11:35 Blood Type B Negative 11/27/20 11:35 Antibody Screen NEGATIVE 11/27/20 11:35 Electrocardiogram Date: 11/27/20 Findings: + NSR @ (66bpm) iRBBB. No significant change from 01/17/20.
[2020-11-27 13:22] LABS: Basophils # (auto) 0.01 K/uL (0-0.2); Basophils % (auto) 0.2 %; Eosinophils # (auto) 0.08 K/uL (0-0.5); Eosinophils % (auto) 1.7 %; Hematocrit (blood only) 43.4 % (42-52); Hemoglobin 15.7 g/dL (14.0-18.0); Immature Granulocytes # (auto) 0.01 K/uL (0.00-0.02); Immature Granulocytes % (auto) 0.2 %; Lymphocytes % (auto) 25.2 %; Mean Corpuscular Hemoglobin 32.6 pg (25-34); Mean Corpuscular Hgb Conc 36.2 g/dL (32-36); Mean Platelet Volume 10.8 fL (7.4-10.4); Monocytes # (auto) 0.64 K/uL (0.11-0.59); Monocytes % (auto) 13.4 %; Neutrophils # (auto) 2.83 K/uL (1.4-6.5); Neutrophils % (auto) 59.3 %; Platelet Count 159 K/uL (130-400); RDW Coefficient of Variation 13.4 % (11.5-14.5); RDW Standard Deviation 44.4 fL (36.4-46.3); Red Blood Count 4.82 M/uL (4.7-6.1); White Blood Count 4.77 K/uL (4.8-10.8)
[2020-11-27 13:35] LABS: Partial Thromboplastin Time 26.4 Seconds (21.0-31.0); Prothrombin Time 10.5 Seconds (9.0-12.0)
[2020-11-27 14:25] LABS: Albumin Level 3.8 gm/dl (3.4-5.0); BUN Creatinine Ratio 19.3 (10-20); Bilirubin Direct 0.2 mg/dl (0-0.2); Calcium 9.1 mg/dl (8.5-10.1); Creatinine Clr Calc Pharmacy 117.2 ml/min; Est GFR (African American) 108.5; Est GFR (Non-African American) 93.6; Potassium 4.8 mmol/L (3.5-5.1)
[2020-11-27 14:28] LABS: Bilirubin,Total 1.1 mg/dl (0.2-1); Total Protein 6.8 gm/dl (6.4-8.2)
--- NOTE | 2020-11-27 17:08 | Electrocardiogram Report ---
Test Reason : Blood Pressure : / mmHG Vent. Rate : 066 BPM Atrial Rate : 066 BPM P-R Int : 192 ms QRS Dur : 112 ms QT Int : 394 ms P-R-T Axes : 066 -16 027 degrees QTc Int : 413 ms Normal sinus rhythm Incomplete right bundle branch block Borderline ECG When compared with ECG of 17-JAN-2020 12:42, No significant change was found Confirmed by Abiel Rodriguez ([id number]) on 11/27/2020 5:07:33 PM Referred By: Chong Gutierrez Confirmed By:Ebenezer Rodriguez
[2020-12-16] MEDS ORDERED: ROPIVACAINE 0.5% HCL/PF 150 MG, BUPIVACAINE 0.75% MPF 20 ML, EPINEPHrine 0.15 MG, Ketor... INFIL SCH (06:00)
[2020-12-16] MEDS ORDERED: ceFAZolin 2000MG 2,000 MG/15 ML SYR IV SCH (06:00)
[2020-12-16] MEDS ORDERED: LR 500ML BOLUS, THEN 15ML/HR IV SCH (06:00)
[2020-12-16] MEDS ORDERED: CeleBREX 200 MG CAP PO SCH (06:00)
[2020-12-16] MEDS ORDERED: TRANEXAMIC ACID 1,000 MG **IV Intra-op IV SCH (06:00)
[2020-12-16] MEDS ORDERED: LR 60ML/HR IV SCH (06:00)
[2020-12-16] MEDS ORDERED: TRANEXAMIC ACID 1,000 MG **IV Pre-op IV SCH (06:00)
[2020-12-16] MEDS ORDERED: BUPIVACAINE 0.5 % 5 MG/1 ML PF 10ML VIAL ONE (06:22)
[2020-12-16] MEDS ORDERED: BUPIVACAINE 0.25% 30 ML VIAL ONE (06:22)
[2020-12-16] MEDS ORDERED: PROPOFOL IV EMULSION 10 MG/ML 20 ML VIAL IV ONE ×2 (06:38→09:24)
[2020-12-16] MEDS ORDERED: fentaNYL citrate 100 MCG/2 ML VIAL ONE (06:38)
[2020-12-16] MEDS ORDERED: ORTHO JOINT ANESTHETIC ONE (06:38)
[2020-12-16] MEDS ORDERED: MIDAZOLAM HCL 1 MG/ML 2ML VIAL ONE (06:38)
--- NOTE | 2020-12-16 06:39 | History & Physical Bridge Note ---
Date of Service December 16, 2020 History & Physical Bridge Note I have examined the patient, reviewed the History & Physical and in the interval since the performance of the History & Physical I have noted the following changes of clinical significance: no changes noted Patient is aware of the risks, is asymptomatic, and tested negative for COVID- 19.
[2020-12-16] MEDS ORDERED: ATROPINE SULFATE 0.1 MG/ML 10ML SYR IV PRN (06:52)
[2020-12-16] MEDS ORDERED: ePHEDrine sulfate 50 MG/ML AMP IV PRN (06:52)
[2020-12-16] MEDS ORDERED: ONDANSETRON INJ 2 MG/ML 2 ML VIAL IV PRN ×2 (06:52→10:18)
[2020-12-16] MEDS ORDERED: fentaNYL citrate 100 MCG/2 ML VIAL IV PRN (06:52)
[2020-12-16] MEDS ORDERED: ePHEDrine sulfate 50 MG/ML SYR ONE (08:47)
[2020-12-16] MEDS ORDERED: ONDANSETRON INJ 2 MG/ML 2 ML VIAL ONE (09:55)
--- NOTE | 2020-12-16 09:56 | Post Operative Brief Note ---
Immediate Post Op Note v1 Date of Surgery December 16, 2020 Pre & Post Diagnosis Operation Date: 12/16/20 07:00 Pre-Op Diagnosis: Left Knee Osteoarthritis Post-Op Diagnosis: Left Knee Osteoarthritis I identified the patient and participated in the time-out.: Yes Procedure Operation Date: 12/16/20 07:00 Actual Procedures p Left Total Knee Arthroplasty(Left) - Chong Gutierrez MD Surgeon Chong Gutierrez MD Latin Professor Jacquelin Stevens PA-C (No fellow Avail) Estimated Blood Loss 50 Findings Consistent with Post-Op Diagnosis Fluids 1000 cc Specimens Left knee contents Anesthesia Type MAC Spinal Regional Complications none
--- NOTE | 2020-12-16 09:57 | Operative Report ---
Post Operative Report Pre & Post Diagnosis Operation Date: 12/16/20 07:00 Pre-Op Diagnosis: Left Knee Osteoarthritis Post-Op Diagnosis: Left Knee Osteoarthritis I identified the patient and participated in the time-out.: Yes Procedure Operation Date: 12/16/20 07:00 Actual Procedures p Left Total Knee Arthroplasty(Left) - Chong Gutierrez MD Surgeon Chong Gutierrez MD Floor Director Jacquelin Parekh PA-C (No fellow Avail) Estimated Blood Loss 50 Findings See Below Examined Under Anesthesia: ROM -- There was 0 degrees to 125 degrees of flexion Ligamentous examination -- revealed stable Amrit, posterior drawer, varus and valgus stress at 0 and 30 degrees. [place] grade IV changes of MFC, LFC, and Patellofemoral compartment grade III-IV changes. Significant synovitis. Popliteal cyst fluid leaked out during the case. Fluids 1000 cc Specimens Left knee contents Anesthesia Type MAC Spinal Regional Complications none Indications This is a 75-year-old male who has clinical and radiographic findings consistent with osteoarthritis of the a left knee. I recommended that a left total knee replacement be performed. The patient understands the risks of surgery, which include but not limited to: bleeding, infection, re-operation, damage to nerves and arteries, continued knee pain, knee stiffness, DVT, and . The patient understands all of these instructions and explanations, all of his questions h ave been satisfactorily addressed and the patient has elected to proceed. Informed consent was signed. Description of Procedure IMPLANTS: 1. Femur: Triathlon #5 Left PS. 2. Tibia: Triathlon #4 [place]. 3. Insert: Triathlon #4 x 9 mm PS X3 poly. 4. Patella: Triathlon A32 x 10 mm X3 poly. 5. Simplex cement. Jacquelin parekh PA-C is assisting with positioning, retracting, and closure due to fellow not available. PROCEDURE: The patient was taken to the Operating Room and placed in the supine position after spinal and adductor canal nerve block was administered. My initials and a multidisciplinary time-out were used to identify the left leg as the correct operative limb. A tourniquet was placed high in the thigh. Prior to the incision, 2 grams of intravenous Ancef were given. The left leg was then prepped and draped in a standard sterile fashion. An Esmarch was used to exsanguinate the leg and the tourniquet was inflated to 250 mmHg. The planned mid-line 20 cm incision was created exposing the extensor mechanism. The medial parapatellar arthrotomy was made and the patella was everted. The patella was addressed first. It was prepared by reaming from 24 mm down to 14 mm. An A32 button was found to fit best. The peg holes were made in the standard fashion. The femur was addressed next and the guide wander was placed intramedullary. The initial cutting block was placed with 5 degrees of valgus and removing 8 mm for the distal cut. The cut was made and the 4-in-1 cutting block for a size 5 femur was placed. These cuts and the cuts to place the box were made in the standard fashion. Our attention was then drawn to the tibia cut with the external cutting guide, taking 2 mm from the medial low side. There was sufficient extension and flexion gap to fit a 9 mm spacer. A #4 Tibial baseplate fit well. A trial with a 9 mm spacer showed excellent stability in both flexion and extension, with good ligament balance, and thumbs free patellar tracking. Range of motion of 0- 125 degrees. The tibial baseplate was prepped for the keel and stem. All the trial components were tested again, with good stability and thumbs free tracking of the patella. All components were removed. The tourniquet was deflated. Hemostasis was obtained. 90 ml of total knee cocktail were injected into the soft tissues and periosteum. A bone plug was placed in the femur and covered with bone wax. After a 15 minute break, the limb was exsanguinated again and the tourniquet was re-inflated. All surfaces were copiously irrigated prior to placement of the components. The femoral component followed by Tibial baseplate were cemented in place and and the 9 mm X3 poly was placed. Next, the patellar button was placed using the same Simplex cement. Again the range of motion and stability were unchanged. The extensor mechanism was closed with 1-0 and 0 Vicryl with the knee bent approximately 60 degrees in a standard fashion. The peritenon and deep fascia was closed with 2-0 Vicryl. The subcutaneous layer was closed with 3-0 Vicryl. The skin was closed with Zipline and shield. The limb was cleaned and dried. 4x4 dressing was placed over top followed by ABDs, sterile Webril, and a foot to thigh Rm bandage. The patient was then transferred to the Recovery Room in stable condition. The sponge and needle counts were correct. POST-OP INSTRUCTIONS: The patient will be WBAT. The patient will be admitted to the hospital. The patient will use the knee immobilizer when ambulating and standing until good quad control is achieved. Labs will be obtained during the stay. DVT prophylaxis will included aspirin for 6 weeks, TEDs, and mechanical foot pumps. The dressing will be changed prior to their discharge or postop day #2 and covered with a Silverlon dressing, whichever comes first. I attest to the content of the Intraoperative Record and any orders documented therein. Any exceptions are noted below.
[2020-12-16] MEDS ORDERED: METOCLOPRAMIDE HCL INJ 5 MG/ML 2 ML VIAL IV PRN (10:18)
[2020-12-16] MEDS ORDERED: MAGNESIUM HYDROXIDE SUSP 30 ML UDC PO PRN (10:18)
[2020-12-16] MEDS ORDERED: diphenhydrAMINE Capsule 25 MG CAP PO PRN (10:18)
[2020-12-16] MEDS ORDERED: bisacodyL 10 MG SUPP PR PRN (10:18)
[2020-12-16] MEDS ORDERED: NALOXONE HCL 0.4 MG/1 ML VIAL/CARP IV PRN (10:18)
[2020-12-16] MEDS ORDERED: HYDROmorphone INJ 1 MG/ML SYRINGE IV PRN (10:18)
[2020-12-16] MEDS ORDERED: diphenhydrAMINE 50 MG/ML VIAL IV PRN (10:18)
--- NOTE | 2020-12-16 10:20 | Operative Report ---
Post Operative Report Pre & Post Diagnosis Operation Date: 12/16/20 07:00 Pre-Op Diagnosis: Left Knee Osteoarthritis Post-Op Diagnosis: Left Knee Osteoarthritis I identified the patient and participated in the time-out.: Yes Procedure Operation Date: 12/16/20 07:00 Actual Procedures p Left Total Knee Arthroplasty(Left) - Chong Gutierrez MD Surgeon Chong Gutierrez MD Dampener Operator Jacquelin Stevens PA-C (No fellow Avail) Estimated Blood Loss 50 Findings Consistent with Post-Op Diagnosis Specimens bone and soft tissue Complications none Description of Procedure See Dr Gutierrez note. I was assistive technology specialist during entire case to include prepping, draping, limb and instrument handling, wound closure, dressings. I attest to the content of the Intraoperative Record and any orders documented therein. Any exceptions are noted below.
--- NOTE | 2020-12-16 10:39 | Anesthesiology Progress Note ---
Date of Service December 16, 2020 Anesthesia Post Procedure Vital Signs Vital Signs: Temp Pulse Pulse Resp BP Pulse Ox 12/16/20 10:35 80 15 129/76 94 12/16/20 10:25 36.5 C 81 16 125/70 95 12/16/20 10:15 86 15 118/65 92 12/16/20 10:09 36.3 C L 89 16 120/73 94 12/16/20 05:54 36.8 C 82 20 170/95 H 96 Transfer of Care Handoff Completed per policy Notes Mental Status: alert / awake / arousable and participated in evaluation Patient Amnestic to Procedure: Yes Nausea / Vomiting: adequately controlled Pain: adequately controlled Airway Patency, RR, SpO2: stable & adequate BP & HR: stable & adequate Hydration State: stable & adequate Anesthetic Complications: no major complications apparent and Pt Satisfied with anesthetic care
--- NOTE | 2020-12-16 10:48 | XRay Report ---
XR knee LT 1 or 2V routine CLINICAL HISTORY: Postoperative evaluation. COMPARISON: Left knee radiographs December 09, 2020. FINDINGS: Alignment of the left knee arthroplasty is anatomic. There is no periprosthetic fracture. Hardware is intact. There are no unexpected radiopaque foreign bodies. IMPRESSION: Expected findings following total left knee arthroplasty. ACT 112: Negative or not required by law. Electronically signed by: Antonio Nguyen M.D. 12/16/2020 10:47 AM
[2020-12-16] MEDS: SODIUM CHLORIDE 0.9% 1000ML 1,000 ML IV SCH ×2 (11:04→22:36)
[2020-12-16] MEDS: ACETAMINOPHEN 500 MG TAB PO SCH ×2 (14:47→22:52)
--- NOTE | 2020-12-16 16:50 | Orthopedic Progress Note ---
Date of Service December 16, 2020 Assessment & Plan (1) Osteoarthritis: POD #0 s/p L TKA, for L knee OA, doing as well as expected. Resume diet. WBAT with walker; and knee immobilizer for max. 48 hours or when demonstrates good quad control. OOB to chair, may remove immobilizer. Continue pain control. Check labs tomorrow. DVT prophylaxis: TEDs 3 weeks, foot pumps while in hospital, ASA 81 mg BID for 6 weeks. PT/OT. D/C planning. Present on Admission?: Yes Admission and Anticipated Discharge Date Admission Date: December 16, 2020 Subjective Left knee throbbing Review of Systems Review of Systems: All systems reviewed & are unremarkable except as noted in HPI & below Physical Exam Physical Exam: LLE: Dressing is clean, dry, intact. Calf is soft and non- tender. Able to preform a straight leg raise. Results & Data ([facility]) Vital Signs (Past 12 Hours) Vital Signs Temp Pulse Pulse Pulse Resp BP Pulse Ox 12/16/20 13:59 36.6 C 80 16 155/70 H 97 12/16/20 12:50 77 18 140/88 95 12/16/20 10:50 36.6 C 78 16 143/80 H 96 12/16/20 10:35 80 15 129/76 94 12/16/20 10:25 36.5 C 81 16 125/70 95 12/16/20 10:15 86 15 118/65 92 12/16/20 10:09 36.3 C L 89 16 120/73 94 12/16/20 05:54 36.8 C 82 20 170/95 H 96 Diagnostic Findings I reviewed the AP & lateral of the left knee which showed cemented TKA components in good position. No fracture or dislocation. (1) Osteoarthritis Osteoarthritis location: knee Osteoarthritis type: primary Laterality: left Qualified Code(s): M17.12 - Unilateral primary osteoarthritis, left knee
[2020-12-16] MEDS: oxyCODONE HCL IR 5 MG TAB (IMMEDIATE RELEASE) PO PRN ×2 (17:34→22:53)
[2020-12-16] MEDS: ceFAZolin 2000MG 2,000 MG/15 ML SYR IV SCH ×2 (17:34→23:46)
[2020-12-16] MEDS: ASCORBIC ACID 500 MG TAB PO SCH (17:34)
[2020-12-16] MEDS: FERROUS GLUCONATE 324 MG TAB PO SCH (17:34)
[2020-12-16] MEDS: DOCUSATE SODIUM 100 MG CAP PO SCH (20:57)
[2020-12-16] MEDS: TAMSULOSIN HCL 0.4 MG CAP PO SCH (20:57)
[2020-12-16] MEDS: ASPIRIN 81 MG ECTAB PO SCH (20:57)
[2020-12-16] MEDS: PSYLLIUM 58.6% POWDER PACKET PO SCH (20:58)
[2020-12-16] MEDS ORDERED: NON-FORMULARY MEDICATION (Vitamins-Lipotropics [Lipo-Flavonoid Plus] 200-100 mg Tablet) PO SCH (21:00)
[2020-12-16] MEDS ORDERED: SENNA 8.6 MG TAB PO SCH (21:00)
[2020-12-16] MEDS ORDERED: MELATONIN 3 MG TAB PO SCH (21:00)
[2020-12-17] MEDS: ACETAMINOPHEN 500 MG TAB PO SCH ×2 (05:33→13:37)
[2020-12-17] MEDS: TAMSULOSIN HCL 0.4 MG CAP PO SCH (08:46)
[2020-12-17] MEDS: DOCUSATE SODIUM 100 MG CAP PO SCH (08:46)
[2020-12-17] MEDS: ASCORBIC ACID 500 MG TAB PO SCH (08:46)
[2020-12-17] MEDS: FERROUS GLUCONATE 324 MG TAB PO SCH (08:47)
[2020-12-17] MEDS: ASPIRIN 81 MG ECTAB PO SCH (08:48)
[2020-12-17] MEDS: PSYLLIUM 58.6% POWDER PACKET PO SCH (08:49)
[2020-12-17] MEDS: oxyCODONE HCL IR 5 MG TAB (IMMEDIATE RELEASE) PO PRN (08:55)
[2020-12-17] MEDS ORDERED: lisinopril 5 MG TAB PO SCH (09:00)
[2020-12-17] MEDS ORDERED: MULTIVITAMIN TAB PO SCH (09:00)
[2020-12-17] MEDS ORDERED: FAMOTIDINE 20 MG TAB PO SCH (09:00)
[2020-12-17] MEDS ORDERED: CEROVITE ADV FORMULA TAB PO SCH (09:00)
[2020-12-17 09:09] LABS: Hematocrit (blood only) 36.5 % (42-52); Hemoglobin 13.3 g/dL (14.0-18.0); Mean Corpuscular Hemoglobin 32.8 pg (25-34); Mean Corpuscular Hgb Conc 36.4 g/dL (32-36); Mean Corpuscular Volume 90.1 fL (80-100); Mean Platelet Volume 10.3 fL (7.4-10.4); Platelet Count 136 K/uL (130-400); RDW Coefficient of Variation 13.3 % (11.5-14.5); Red Blood Count 4.05 M/uL (4.7-6.1); White Blood Count 8.73 K/uL (4.8-10.8)
--- NOTE | 2020-12-17 09:37 | Orthopedic Progress Note ---
Date of Service December 17, 2020 Assessment & Plan (1) Osteoarthritis: POD #1 s/p L TKA, for L knee OA, doing as well as expected. Resume diet. WBAT with walker; and knee immobilizer for max. 48 hours or when demonstrates good quad control. OOB to chair, may remove immobilizer. Continue pain control. Check rest of labs later today. DVT prophylaxis: TEDs 3 weeks, foot pumps while in hospital, ASA 81 mg BID for 6 weeks. PT/OT. D/C planning for home, with home health. Follow up in office later this week to change dressing to Silverlon. Admission and Anticipated Discharge Date Admission Date: December 16, 2020 Subjective Doing well. Pain meds help. Review of Systems Review of Systems: All systems reviewed & are unremarkable except as noted in HPI & below Physical Exam Physical Exam: LLE: Dressing is clean, dry, intact. Calf is soft and non- tender. Able to preform a straight leg raise. Ambulating well with walker, Immobilizer while working with PT. Results & Data ([facility]) Vital Signs (Past 12 Hours) Vital Signs Temp Pulse Resp BP Pulse Ox 12/17/20 07:45 37.1 C 83 18 129/73 93 12/17/20 03:31 36.8 C 84 16 132/80 93 12/16/20 22:15 36.6 C 62 18 129/77 92 Laboratory Results 12/17/20 12/17/20 Range/Units 08:50 08:50 WBC 8.73 (4.8-10.8) K/uL RBC 4.05 L (4.7-6.1) M/uL Hgb 13.3 L (14.0-18.0) g/dL Hct 36.5 L (42-52) % MCV 90.1 (80-100) fL MCH 32.8 (25-34) pg MCHC 36.4 H (32-36) g/dL RDW Std Deviation 44.0 (36.4-46.3) fL RDW Coeff of Florin 13.3 (11.5-14.5) % Plt Count 136 (130-400) K/uL MPV 10.3 (7.4-10.4) fL Sodium Pending Potassium Pending Chloride Pending Carbon Dioxide Pending Anion Gap Pending BUN Pending Creatinine Pending Est Cr Clr Drug Dosing Pending Est GFR ( Amer) Pending Est GFR (Non-Af Amer) Pending BUN/Creatinine Ratio Pending Glucose Pending Calcium Pending (1) Osteoarthritis Osteoarthritis location: knee Osteoarthritis type: primary Laterality: left Qualified Code(s): M17.12 - Unilateral primary osteoarthritis, left knee
[2020-12-17 09:39] LABS: BUN Creatinine Ratio 21.4 (10-20); Calcium 8.3 mg/dl (8.5-10.1); Creatinine Clr Calc Pharmacy 127.3 ml/min; Est GFR (African American) 112.6; Est GFR (Non-African American) 97.1
--- NOTE | 2020-12-17 14:42 | Discharge Summary ---
Date of Service December 17, 2020 Principal Diagnosis Left knee osteoarthritis Discharge Data Allergies Allergy/AdvReac Type Severity Reaction Status Date / Time ketoprofen AdvReac Mild GI UPSET Verified 12/16/20 05:41 meloxicam AdvReac Mild GI UPSET Verified 12/16/20 05:41 Procedures Performed Operation Date: 12/16/20 07:00 Actual Procedures p Left Total Knee Arthroplasty(Left) - Chong Gutierrez MD Ordered Studies 12/16/20 05:00 US - OR guided needle placemen Routine Hospital Course (1) Osteoarthritis of left knee: 75-year-old male underwent a left total knee arthroplasty on 12/16/[address] Gutierrez at [facility]. He tolerated spinal anesthetic with a left lower extremity femoral nerve block. Surgery was without complications. He was transferred to the floor postoperatively. He received 24-hour postop IV Ancef. DVT prophylaxis in-house in occluded aspirin 81 mg twice daily foot pumps and ROBI hose. While in-house patient received a regular diet, tolerated p.o. diet and fluids. Pain controlled. He was able to sleep through the night on postop day 0 after receiving Oxycodone. Prior to that he was having some restless leg symptoms of his left leg. Tolerating p.o. narcotics not needing IV medication. Vital signs throughout his stay have been within normal limits a.m. labs also within normal limits. Patient has had no instances of chest pain shortness of breath lightheadedness or dizziness. Denies chills or sweats numbness tingling or radiation in his legs. Has been able to urinate. His postoperative dressings have remained intact. With his previous right total knee replacement he did have wound issues therefore it was decided to keep his postoperative dressings intact until 12/19/2020 for follow-up in the office. He received physical therapy and Occupational Therapy. Weightbearing as tolerated left lower extremity with the walker and knee immobilizer. He was deemed stable to be discharged on postop day 1 in the afternoon. He plans to go home with his and receive home health physical therapy. Discharge instructions will include prescriptions of oxycodone, vitamin C , iron, and aspirin. He will restart his Celebrex. He can use Tylenol for mild to moderate pain. He was advised to hold glucosamine/chondroitin. DVT prophylaxis upon discharge will include the aspirin 81 mg twice a day for 6 weeks as well as knee-high ROBI hose until at least his 2-week postop follow-up in the office. The patient was advised to keep his postoperative dressings intact clean and dry and he is scheduled for an appointment on 12/19/2020 with Amish Leger PA-C removal postoperative dressings and application of the Silverlon waterproof dressing. Please refer to below discharge plan for more involved detailed postoperative instructions. Patient was advised to contact the office or go to the emergency room for any further questions or concerns or emergent issues. Total Time Total Time Spent Total Time Spent (In Minutes): 20 min Discharge Plan Discharge Items Patient Disposition: Home - Home Health Services Reason For Visit: Left Knee Osteoarthritis Discharge Diagnosis: Left knee osteoarthritis Activity: Per Instructions section Lifting Comment: per physical therapy protocol Bathing: Keep incision dry Bathing Comment: keep dressings clean and dry until seen in office on tuesday Exercise Comment: per physical therapy protocol Driving/Machine Use: wait until seen in the office Weightbearing: Left weightbearing Weightbearing Comment: as tolerated with walker or cane Non-emergency contact: Surgeon Call non-emergency contact if: your pain is not controlled, your temperature is above 101.5, your wound has increased redness and your wound has increased drainage Follow-up/Referrals: Pro,Skyler Zhang MD [Primary Care Provider] - Chong Gutierrez MD [Physician] - 12/19/20 9:45 am (with Amish Leger for dressing change to silverlon) Diet: Regular Addtl Attending Provider Instructions: Post-operative Instructions Pain Expect to be in a fair amount of pain after surgery. Remember, our goal is not to eliminate your pain, but to make it tolerable. It is a good idea to stay ahead of your pain by taking the medications you were prescribed once you get home. Typically, the pain starts improving 3-7 days after surgery. You should start weaning off the narcotic pain medication (oxycodone) as soon as your pain improves. Please call our office if your pain is not adequately controlled. You can take tylenol 1000mg every 8hrs for mild to moderate pain. Ice Ice your operative site at least 5 times a day for 15-30 minutes at a time. Make sure you have a thin cloth between the ice or cooling unit and your skin to prevent gilliam bite. This is especially important if you received a nerve block. Continue icing your operative site for the first 5-7 days after surgery, then as needed. Diet/Nausea/Vomiting Start by drinking clear liquids and eating crackers. If you can tolerate this, then you may resume your normal diet. If you feel nauseated or vomit, take Zofran/ondansetron (if prescribed). Please call our office if you have intractable nausea or vomiting, or, if after hours, you may go to the Emergency Room for help. Constipation Constipation is a common side effect of narcotic pain medication. If you have not had a bowel movement within 2 days after surgery, we recommend purchasing an over the counter laxative such as Milk of Magnesia, Dulcolax, or Miralax from a local pharmacy, and taking it as instructed. Call our clinic if any questions. Weight bearing and Range of Motion. Weightbearing as tolerated with walker. No restrictions with range of motion. *KNEE IMMOBILIZER x 48hrs AFTER SURGERY WHILE AMBULATING AND THEN CAN STOP (CONTINUE IF YOU DO NOT HAVE GOOD QUAD CONTROL)* Physical therapy Initially you will start with home health physical therapy. At our first visit with at our office we will provide you with script for outpatient physical therapy. Wound care and showering We will inspect your wound at your first post-operative visit, and apply silverlon dressing which is waterproof. That is removed 14 days after surgery. It is normal to see some dried blood on the dressing. Do not remove your dressing, paper strips or sutures yourself unless you are given permission. Showering is allowed the day after surgery. Do not scrub or remove any dressings. The wound should not be submerged underwater (i.e. in a bathtub or pool) until 4 weeks after surgery ROBI stockings If you were given white stockings, these are to be worn at all times except to shower and sleep (on both legs) for the first 2 weeks after surgery. We will discuss removal at your first follow-up appointment. Driving You may not drive while taking narcotic pain medication. We will discuss return to driving at your first follow-up appointment. Return To Work Your return to work depends on what surgery was done and what type of work you do. Please bring any paperwork your employer needs completed to your first post-operative visit. Also, bring a description of your job duties, as this helps us to understand what risks you may face at work. Travel Avoid long distance travel (greater than 1 hour) in airplanes and cars for the first 6 weeks after surgery if possible. If you must travel, please let us know so we can discuss additional measures to prevent blood clots. Follow-up with our office on 12-19 with Amish Leger PA-C for dressing change at 9:45am You should have a follow-up appointment already scheduled for 2 weeks after surgery. If not, please contact our office to make this appointment before you leave the hospital. When to call the office [phone] It is normal to have swelling and bruising in the limb that was operated on. This will improve with time. It is also normal to have fevers for the first 2 days after surgery. Reasons you should call your doctor include: Uncontrolled pain; Nausea, vomiting, or constipation that does not improve with medication; Fevers over 101.5, chills, sweats; Drainage or bleeding from the wound; Foul odor; Spreading areas of redness; Any other concerns. NEW MEDICATIONS: new medications will be sent to your pharmacy: oxycodone, iron, vit c, tylenol, aspirin. Pending Studies at Discharge: No Stand-Alone Forms: [facility], Opioid Pain Management, Smoking Cessation Medications and DC Order Prescriptions: New aspirin 81 mg Tablet,Delayed Release (Dr/Ec) 81 mg PO BID 42 Days Qty: 84 RF: 0 acetaminophen 500 mg Tablet 1,000 mg PO Q8 PRN (Reason: pain or fever) Qty: 60 RF: 0 ascorbic acid (vitamin C) [Vitamin C] 500 mg Tablet 500 mg PO BIDM 14 Days Qty: 28 RF: 0 oxycodone 5 mg Tablet 5 - 10 mg PO Q4H PRN (Reason: pain) Qty: 30 RF: 0 ferrous gluconate 324 mg (38 mg iron) Tablet 324 mg PO BIDM 14 Days Qty: 28 RF: 0 Continued lisinopril 5 mg tablet 5 mg PO QAM Qty: 90 RF: 3 Centrum Silver Men 300-600-300 mcg tablet 1 tab PO QAM RF: 0 famotidine [Pepcid] 40 mg tablet 60 mg PO DAILY 90 Days Qty: 135 RF: 3 celecoxib [Celebrex] 200 mg capsule 200 mg PO DAILY PRN (Reason: arthritis) Qty: 90 RF: 3 diphenhydramine-acetaminophen [Tylenol PM Extra Strength] 25-500 mg tablet 2 tab PO .qhs 30 Days Qty: 60 RF: 0 tamsulosin 0.4 mg capsule 0.4 mg PO BID RF: 0 polyethylene glycol 3350 [Miralax] 17 gram/dose powder 17 gm PO DAILY PRN (Reason: Constipation) RF: 0 Lipo-Flavonoid Plus 200-100 mg Tablet 1 tab PO BID RF: 0 Metamucil 3.4 gram/5.4 gram Powder 1 tbsp PO BID RF: 0 melatonin 5 mg Tablet 5 mg PO HS RF: 0 Discontinued kcitzevnrzk-nfjulltlj-rie C-Mn [Glucosamine-Chondroitin Complx] 500-400 mg capsule 1 cap PO BID RF: 0 diclofenac sodium [Voltaren] 1 % gel 4 g topical QID PRN (Reason: Pain) RF: 0 acetaminophen [Tylenol Extra Strength] 500 mg Tablet 500 mg PO QID PRN (Reason: Pain) RF: 0 Discharge Orders: Discharge Order (Routine); Ordered 12/17/20 Ordered By: Josy Stevens Admission Data Admit Date/Time: 12/16/20 10:18 Attending Provider: Chong Gutierrez Admit Provider: Chong Gutierrez Primary Care Provider: Skyler Rodriguez Other Providers: [facility],Home Healthcare Other Interventions: Discharge Summary Assessment (RN) Last Done: 12/17/20 13:42
== END 2020-12-17 15:46 | disposition home health service (06) ==
LOC: ASU 05:10 → 3E 05:10

== ENCOUNTER 2021-11-18 07:44 | Inpatient (IN) ==
--- NOTE | 2021-09-17 11:12 | PAT Medication Instructions ---
Medication Instructions Date of Service September 17, 2021 Home Medications Medication Instructions Recorded acetaminophen 500 mg tablet 1,000 mg PO Q8 PRN #60 tab 12/17/20 diclofenac sodium 1 % topical gel 4 g TOPICAL QID PRN #100 g 01/20/21 (Voltaren) famotidine 40 mg tablet (Pepcid) 40 mg PO .COMPLEX #135 tab 06/04/21 lisinopril 30 mg tablet 30 mg PO QAM #90 tab 07/17/21 celecoxib 100 mg capsule (Celebrex) 100 mg PO BID #60 cap 08/11/21 jyhogdyn-vod-xudpm acid 300 mcg-lycopene 600 mcg-lutein 300 mcg tablet (Centrum Silver Men) 1 tab PO BID vitamins-lipotropics 200 mg-100 mg tablet (Lipo-Flavonoid Plus) 2 tab PO BID psyllium husk 3.4 gram/5.4 gram oral powder (Metamucil) 1 tbsp PO BID polyethylene glycol 3350 17 gram/dose oral powder (Miralax) 17 gm PO DAILY PRN tamsulosin 0.4 mg capsule 0.4 mg PO BID acetaminophen 500 mg tablet 1,000 mg PO Q8 PRN diclofenac sodium 1 % topical gel (Voltaren) 4 g TOPICAL QID PRN melatonin 3 mg capsule 3 mg PO HS PRN famotidine 40 mg tablet (Pepcid) 40 mg PO .COMPLEX lisinopril 30 mg tablet 30 mg PO QAM celecoxib 100 mg capsule (Celebrex) 100 mg PO BID amlodipine 5 mg tablet 5 mg PO QAM Continue as directed famotidine 40 mg tablet (Pepcid) 40 mg PO .COMPLEX ASK your surgeon for instructions celecoxib 100 mg capsule (Celebrex) 100 mg PO BID STOP taking 24 hours before surgery vitamins-lipotropics 200 mg-100 mg tablet (Lipo-Flavonoid Plus) 2 tab PO BID diclofenac sodium 1 % topical gel (Voltaren) 4 g TOPICAL QID PRN DO NOT take the morning of surgery rexyqcld-uvr-kgkii acid 300 mcg-lycopene 600 mcg-lutein 300 mcg tablet (Centrum Silver Men) 1 tab PO BID psyllium husk 3.4 gram/5.4 gram oral powder (Metamucil) 1 tbsp PO BID polyethylene glycol 3350 17 gram/dose oral powder (Miralax) 17 gm PO DAILY PRN lisinopril 30 mg tablet 30 mg PO QAM Take morning of surgery With a small sip of water, OTHERWISE NOTHING TO EAT OR DRINK AFTER MIDNIGHT: tamsulosin 0.4 mg capsule 0.4 mg PO BID acetaminophen 500 mg tablet 1,000 mg PO Q8 PRN(okay to take up to 4 hours prior to surgery if needed) amlodipine 5 mg tablet 5 mg PO QAM Take evening before surgery zymoclnf-ryj-snuyw acid 300 mcg-lycopene 600 mcg-lutein 300 mcg tablet (Centrum Silver Men) 1 tab PO BID psyllium husk 3.4 gram/5.4 gram oral powder (Metamucil) 1 tbsp PO BID tamsulosin 0.4 mg capsule 0.4 mg PO BID acetaminophen 500 mg tablet 1,000 mg PO Q8 PRN(if needed) melatonin 3 mg capsule 3 mg PO HS PRN(if needed) Other Notes If you have any questions please call us at [phone] or [phone] or [phone] or [phone]
--- NOTE | 2021-11-12 13:54 | Anesthesiology Consultation ---
Date of Service November 12, 2021 Assessment & Plan (1) Encounter for pre-operative examination: - Patient acceptable risk for surgery pending surgeon-ordered PCP preop evaluation (scheduled 11/16; [facility]). - COVID screening: Per assessment on 11/12: Travel screen negative, no known COVID-19 positive contacts or current COVID-19 related symptoms. Patient vaccinated. Surgeon arranging preop COVID testing. Awaiting results. - S/P Left TKA (12/16/20): SAB x1 attempt + PNB at [facility] Chart Review Chart Review: Patient seen in Pre Admission Testing Teaching & Discussion Pre-Anesthesia Teaching/Discussion Notes: Instructed NPO after midnight before surgery,except medications with 15 cc of water. Medication instructions provided according to the PAT guidelines. History Surgery Operation Date: 11/18/21 07:00 Proposed Procedures p Open Total Left Knee Revision Polyexchange, Retinacular Repair vs Reconstruction - Chong Sarah Gutierrez MD Height/Weight Height: 5 ft 11 in Weight: 92.2 kg Allergies Allergy/AdvReac Type Severity Reaction Status Date / Time ketoprofen AdvReac Mild GI upset Verified 11/11/21 14:49 meloxicam AdvReac Mild GI upset Verified 11/11/21 14:49 Medications Home Medications Medication Instructions Recorded Confirmed Last Taken olfebtau-ofc-sdboe acid 300 1 tab PO BID tab 05/09/19 11/02/21 03/31/21 18:00 mcg-lycopene 600 mcg-lutein 300 mcg tablet (Centrum Silver Men) vitamins-lipotropics 200 mg-100 mg 2 tab PO BID 01/10/20 11/02/21 03/31/21 18:00 tablet (Lipo-Flavonoid Plus) psyllium husk 3.4 gram/5.4 gram 1 tbsp PO BID 01/29/20 11/02/21 12/15/20 21:00 oral powder (Metamucil) polyethylene glycol 3350 17 17 gm PO DAILY PRN 04/28/20 11/02/21 12/15/20 21:00 gram/dose oral powder (Miralax) tamsulosin 0.4 mg capsule 0.4 mg PO BID cap 05/13/20 11/02/21 03/31/21 18:00 acetaminophen 500 mg tablet 1,000 mg PO Q8 PRN #60 tab 12/17/20 11/02/21 Unknown diclofenac sodium 1 % topical gel 4 g TOPICAL QID PRN #100 g 01/20/21 11/02/21 Unknown (Voltaren) melatonin 3 mg capsule 3 mg PO HS PRN 04/07/21 11/02/21 Unknown famotidine 40 mg tablet (Pepcid) 40 mg PO .COMPLEX #135 tab 06/04/21 11/02/21 Unknown lisinopril 30 mg tablet 30 mg PO QAM #90 tab 07/17/21 11/02/21 Unknown amlodipine 5 mg tablet 5 mg PO QAM 09/15/21 11/02/21 Unknown celecoxib 100 mg capsule (Celebrex) 100 mg PO BID #60 cap 11/03/21 Unknown Past Medical History Medical History Benign prostatic hyperplasia with elevated prostate specific antigen (PSA) Bilateral tinnitus Cataract Claustrophobia Eustachian tube dysfunction GERD (gastroesophageal reflux disease) HTN (hypertension), benign Sensorineural hearing loss (SNHL) of both ears Urinary frequency Exercise / Class Metabolic Activity III < 4 Walking/Shop/Light housework (uses cane) Past Family History Family History Mother Cardiac disorder Aunt Diabetes Grandmother (Maternal) Diabetes Uncle Melanoma Father History of anesthesia reaction voiding difficulty Denies family history of Ovarian cancer Prostate cancer Myocardial infarction Breast cancer Colorectal cancer Past Surgical History Surgical History H/O knee surgery Right TKA (01/29/20): SAB x1 attempt + PNB at [facility] H/O oral surgery tooth extraction History of colonoscopy History of left knee replacement Left TKA (12/16/20): SAB x1 attempt + PNB at [facility] S/P inguinal hernia repair left S/P mastectomy, bilateral elective- 1969 S/P surgical removal of pilonidal cyst Past Anesthesia History No Family Hx of Anesthesia Complications (except father (post-op urinary retention)) History of PONV No Hx of PONV and No Hx of Motion Sickness Social History Smoking Status: Former smoker tobacco type: cigarettes Do You Dip or Chew Tobacco: No Smoking End Date: Quit 20 years ago Hx Alcohol Use: Yes Alcohol type: beer, wine and hard liquor alcohol intake frequency: 0-2 drinks per day (1-2 drinks/day) Hx Substance Use: No substance use type: does not use Review of Systems Patient denies chest pain, shortness of breath, fever, chills, cough, wheezing, palpitations. Physical Exam PHYSICAL Full cervical extension range of motion. Full TMJ range of motion. TMD 3 finger breaths Mallampati Score 3 Dentition: intact, + several crowns Lungs: clear throughout to auscultation Cardiac: regular rate and rhythm, no murmurs noted Spine: normal Carotid arteries: negative bruit Extremities: no edema Lab Results Anesthesia Preop Results Results Anesthesia Widget: WBC 6.12 K/uL (4.8-10.8) 11/12/21 Hgb 12.6 g/dL (14.0-18.0) L 11/12/21 Hct 37.9 % (42-52) L 11/12/21 Plt 224 K/uL (130-400) 11/12/21 Na 134 mmol/L (136-145) L 11/12/21 K 4.2 mmol/L (3.5-5.1) 11/12/21 Cl 101 mmol/L (98-107) 11/12/21 CO2 28 mmol/L (21-32) 11/12/21 BUN 14 mg/dl (6-23) 11/12/21 Creat 0.58 mg/dl (0.6-1.4) L 11/12/21 Glucose Level 85 mg/dl (70-99(Fasting)) 11/12/21 PT 11.3 Seconds (9.0-12.0) 11/12/21 PTT 30.2 Seconds (21.0-31.0) 11/12/21 INR 1.1 (0.9-1.1) 11/12/21 Urine Color Yellow 11/12/21 Urine Appearance Clear (Clear) 11/12/21 Urine pH 6.0 (4.5-7.5) 11/12/21 Urine Specific [place] 1.011 (1.000-1.030) 11/12/21 Urine Protein Negative (Negative) 11/12/21 Urine Glucose (UA) Negative (Negative) 11/12/21 Urine Ketones Negative (Negative) 11/12/21 Urine Blood Negative (Negative) 11/12/21 Urine Nitrite Negative (Negative) 11/12/21 Urine Bilirubin Negative (Negative) 11/12/21 Urine Urobilinogen Negative (Negative) 11/12/21 Urine Leukocyte Esterase Negative (Negative) 11/12/21 Blood Type B Negative 11/12/21 Antibody Screen NEGATIVE 11/12/21 Testing Electrocardiogram Date: 11/27/20 NSR at 66bpm. iRBBB. Chest X-Ray Date: 11/12/21 Findings: + NAD
--- NOTE | 2021-11-16 16:15 | History & Physical Report ---
Date of Service November 16, 2021 Assessment & Plan (1) Patellar instability of left knee: Plan: Postoperative prescriptions for oxycodone will be provided at discharge from the hospital. Anticipate discharge to home with home health services. He already has a cane and walker. PDMP was checked, and there are no concerning findings. He is aware of the COVID-19 risks regarding surgery. He is currently asymptomatic of any COVID-19 symptoms. He will obtain nasal swab testing 2 days prior to surgery. Preoperative testing has been completed. He has already seen Dr. Rodriguez for medical clearance. History of Present Illness Chief Complaint: Left knee patellar instability Primary Care Provider: Skyler Rodriguez MD This 76-year-old male presents for his preoperative history and physical. He is scheduled to undergo a left knee revision, total knee arthroplasty with poly exchange and retinacular repair versus reconstruction on 11/18/2021. The patient initially had a left total knee arthroplasty done 12/16/2020. He did well postoperatively, but had some quad atrophy and patellar maltracking. This has persisted. He did try bracing as well as physical therapy without improvement. The patient states he needs to put pressure on the patella when going from sitting to standing to avoid patellar subluxation. He has had some falls secondary to this. Because of the persisting instability, he elects to proceed with surgical intervention. He denies any numbness or tingling. There is no significant pain other than when the patella subluxes. Preoperative imaging has been obtained. Allergies Allergy/AdvReac Type Severity Reaction Status Date / Time ketoprofen AdvReac Mild GI upset Verified 11/18/21 08:36 meloxicam AdvReac Mild GI upset Verified 11/18/21 08:36 Home Medications Medication Instructions Recorded Confirmed Type hipkvqgq-glp-mqfpr acid 300 1 tab PO BID tab 05/09/19 11/18/21 History mcg-lycopene 600 mcg-lutein 300 mcg tablet (Centrum Silver Men) vitamins-lipotropics 200 mg-100 mg 2 tab PO BID 01/10/20 11/18/21 History tablet (Lipo-Flavonoid Plus) psyllium husk 3.4 gram/5.4 gram 1 tbsp PO BID 01/29/20 11/18/21 History oral powder (Metamucil) polyethylene glycol 3350 17 17 gm PO DAILY PRN 04/28/20 11/18/21 History gram/dose oral powder (Miralax) tamsulosin 0.4 mg capsule 0.4 mg PO BID cap 05/13/20 11/18/21 History acetaminophen 500 mg tablet 1,000 mg PO Q8 PRN #60 tab 12/17/20 11/18/21 Rx diclofenac sodium 1 % topical gel 4 g TOPICAL QID PRN #100 g 01/20/21 11/18/21 Rx (Voltaren) melatonin 3 mg capsule 3 mg PO HS PRN 04/07/21 11/18/21 History famotidine 40 mg tablet (Pepcid) 40 mg PO .COMPLEX #135 tab 06/04/21 11/18/21 Rx lisinopril 30 mg tablet 30 mg PO QAM #90 tab 07/17/21 11/18/21 Rx amlodipine 5 mg tablet 5 mg PO QAM 09/15/21 11/18/21 History celecoxib 100 mg capsule (Celebrex) 100 mg PO BID #60 cap 11/03/21 11/16/21 Rx Past Med/Surg History Medical History Benign prostatic hyperplasia with elevated prostate specific antigen (PSA) Bilateral tinnitus Cataract Claustrophobia Eustachian tube dysfunction GERD (gastroesophageal reflux disease) HTN (hypertension), benign Sensorineural hearing loss (SNHL) of both ears Urinary frequency Surgical History H/O knee surgery H/O oral surgery History of colonoscopy History of left knee replacement S/P inguinal hernia repair S/P mastectomy, bilateral S/P surgical removal of pilonidal cyst Family History Mother Cardiac disorder Aunt Diabetes Grandmother (Maternal) Diabetes Uncle Melanoma Father History of anesthesia reaction Denies family history of Ovarian cancer Prostate cancer Myocardial infarction Breast cancer Colorectal cancer Social History Smoking Status: Former smoker Smoking End Date: Quit 20 years ago; Second Hand Exposure: Yes (as a child); Do You Dip or Chew Tobacco: No; Tobacco Cessation Education Requested by Patient: No Hx Alcohol Use: Yes Alcohol type: beer, wine and hard liquor Hx Substance Use: No Preferred Language: Amharic Communication Ability: Effective Visual Impairment: Partially Limited Hearing Ability: Normal Circulation Worker Required: No Beliefs That Will Affect Care: None marital status: Current Living Situation: Family current occupational status: retired How many Children do You have: 1 How many Children do You have Comment: 1 boy Other Information That Helps Us Care for You: No Feels Safe at Home: Yes Safety Concerns: Feels Safe At This Time Childhood Exposure to Second-Hand Smoke: Yes during the past year weight has: remained stable Dental Care, Regularly: Yes Physical Activity Frequency: Daily Seatbelt Use: always Sunscreen Use: Yes Assistive Devices: Cane, Glasses and Walker Review of Systems Review of Systems: All systems reviewed & are unremarkable except as noted in HPI & below A total of 10 systems were reviewed Physical Exam Physical Exam: Vitals: Height 176.5 cm, weight 94 kilograms, BMI 30.2, temperature 36.5, BP 122/62, pulse 80, O2 sat 99% on room air. General: Well-developed, well-nourished, elderly white male in no acute distre ss. Sitting in a chair. Alert and oriented. Skin: Warm and dry with good turgor. No rashes or lesions. No ecchymosis or erythema. Mild intra-articular effusion in the left knee. HEENT: Normocephalic, atraumatic. Eyes: PERRLA, EOMI. Nares and oropharynx exams deferred due to COVID precautions. Heart: RRR. Soft systolic ejection murmur noted. No gallops or rubs. Lungs: Clear to auscultation bilaterally. No crackles, rhonchi or wheezing. Good air movement. Abdomen: Bowel sounds present x4, soft, nontender. No organomegaly. No masses. Musculoskeletal: Left knee evaluation reveals the effusion as stated. He has quad atrophy of the left knee. Full terminal extension. Flexion to greater than 110 degrees. Stable collateral ligaments. Strength is 5/5 with fair quad tone. He does have a hypermobile patella and has ability to sublux the patella when extended. Ambulates today with a normal gait using a walking stick. Neurologic: Gross sensation is intact across both lower extremities by soft touch. Peripheral pulses are 2+. Results & Data Results & Data ([facility]) Diagnostic Findings Radiographic imaging previously obtained shows a total knee arthroplasty with lateral patellar tilt. Code Status & VTE Plan VTE Prophylaxis Plan VTE Prophylaxis will be ordered: Yes
[~2021-11-18 07:44] MED LIST changes: +ACETAMINOPHEN 500 MG TAB PO SCH; +BUPIVACAINE 0.5 % 5 MG/1 ML PF 10ML VIAL ONE; -CLB/200 PO; +FAMOTIDINE 20 MG TAB PO SCH; +GABAPENTIN 300 MG CAP PO SCH; -GLUCTAB7 PO; -IBUP-103 PO; +LR 500ML BOLUS, THEN 15ML/HR IV SCH; +LR 60ML/HR IV SCH; -MULT-190 PO; -MULT-506 PO; -PSYL55.43 PO; +Scopolamine 1 MG TDSY TD SCH; -TAMS0.4C38 PO; +TRANEXAMIC ACID 1,000 MG **IV Intra-op IV SCH; +TRANEXAMIC ACID 1,000 MG **IV Pre-op IV SCH; +VANCOMYCIN HCL 1,250 MG in SODIUM CHLORIDE 0.9% 250 ML IV SCH; +ceFAZolin 2000MG 2,000 MG/15 ML SYR IV SCH; +oxyCODONE HCL 10 MG TABCR (OxyCONTIN) PO SCH
[2021-11-18] MEDS ORDERED: fentaNYL citrate 100 MCG/2 ML VIAL ONE (08:06)
[2021-11-18] MEDS ORDERED: MIDAZOLAM HCL 1 MG/ML 2ML VIAL ONE (08:06)
[2021-11-18] MEDS ORDERED: ATROPINE SULFATE 0.1 MG/ML 10ML SYR IV PRN (09:54)
[2021-11-18] MEDS ORDERED: ePHEDrine sulfate 50 MG/ML AMP IV PRN (09:54)
[2021-11-18] MEDS ORDERED: fentaNYL citrate 100 MCG/2 ML VIAL IV PRN (09:54)
[2021-11-18] MEDS ORDERED: ONDANSETRON INJ 2 MG/ML 2 ML VIAL IV PRN ×2 (09:54→14:11)
--- NOTE | 2021-11-18 10:09 | History & Physical Bridge Note ---
Date of Service November 18, 2021 History & Physical Bridge Note I have examined the patient, reviewed the History & Physical and in the interval since the performance of the History & Physical I have noted the following changes of clinical significance: no changes noted Patient is aware of the risks, is asymptomatic, and tested negative for COVID- 19.
[2021-11-18] MEDS ORDERED: BUPIVACAINE 0.5 % 5 MG/1 ML MPF 30ML VIAL ONE (11:18)
[2021-11-18] MEDS ORDERED: LIDOCAINE 1%/EPINEPHRINE 1:100,000 50 ML VIAL ONE (11:19)
[2021-11-18] MEDS ORDERED: PROPOFOL IV EMULSION 10 MG/ML 20 ML VIAL IV ONE (13:03)
--- NOTE | 2021-11-18 13:49 | Post Operative Brief Note ---
Immediate Post Op Note v1 Date of Surgery November 18, 2021 Pre & Post Diagnosis Operation Date: 11/18/21 10:20 Pre-Op Diagnosis: Patellar instability of left knee. Post-Op Diagnosis: Patellar instability of left knee, infection of left total knee arthroplasty. I identified the patient and participated in the time-out.: Yes Procedure Operation Date: 11/18/21 10:20 Actual Procedures p Incision and drainage of left total knee, polyexchange, retinacular repair, lateral release.(Left) - Chong Gutierrez MD Surgeon Chong Gutierrez MD [employer] Kim Sifuentes MD & M BRITTANIE Yeager Estimated Blood Loss 75 Findings Consistent with Post-Op Diagnosis Fluids 1600 cc Specimens L knee Cx & Sensenitivty L knee soft tissue Frozen L knee aspirate Drains Hemovac Drain Anesthesia Type MAC Spinal Regional Complications none
--- NOTE | 2021-11-18 13:50 | Operative Report ---
Post Operative Report Pre & Post Diagnosis Operation Date: 11/18/21 10:20 Pre-Op Diagnosis: Patellar instability of left knee. Post-Op Diagnosis: Patellar instability of left knee, infection of left total knee arthroplasty. I identified the patient and participated in the time-out.: Yes Procedure Operation Date: 11/18/21 10:20 Actual Procedures p Incision and drainage of left total knee, polyexchange, retinacular repair, lateral release.(Left) - Chong Gutierrez MD Surgeon Chong Gutierrez MD Pasta Maker Kim Sifuentes MD & M BRITTANIE Yeager Estimated Blood Loss 75 Findings See Below Examined Under Anesthesia: ROM -- There was 0 degrees to 125 degrees of flexion, Patella dislocates laterally. Large effusion, blood tinged, no obvious purulence. Significant scar tissue about patellar tendon, patella with adhesions laterally. Medial retinaculum thinned and elongated from3 cm proximal to patella to the proximal Tibia. Fluids 1600 cc Specimens L knee soft tissue for Frozen L knee Culture & Sensitivity L knee aspirate Drains HVAC Anesthesia Type MAC Spinal Regional Complications none Indications This is a 76-year-old male who had undergone left TKA 11/2020 and was doing well but developed patellar instability that did not respond to conservative treatment. I recommended that a left total knee poly exchange and retinacular repair versus reconstruction. The patient understands the risks of surgery, which include but not limited to: bleeding, infection, re-operation, damage to nerves and arteries, continued knee pain, knee stiffness, DVT, and . The patient understands all of these instructions and explanations, all of his questions have been satisfactorily addressed and the patient has elected to proceed. Informed consent was signed. Description of Procedure IMPLANTS: 1. Insert: Triathlon #4 x 9 mm PS X3 poly. Procedure: The patient was taken to the Operating Room and placed in the supine position after spinal and adductor canal nerve block was administered. My initials and a multidisciplinary time-out were used to identify the left leg as the correct operative limb. A tourniquet was placed high in the thigh. Prior to the incision, 2 grams of intravenous Ancef and 1g of Vancomycin were given. The left leg was then prepped and draped in a standard sterile fashion. An Esmarch was used to exsanguinate the leg and the tourniquet was inflated to 250 mmHg. The planned mid-line 24 cm incision slightly extending his previous incision proximally was created exposing the extensor mechanism. Wide skin flaps were created both medially and laterally. The thinned and elongated medial retinaculum was identified. The medial parapatellar arthrotomy was made and a large amount of blood tinged fluid was evacuated. This fluid was aspirated for culture and sensitivities. The Synovium was excised and several samples were sent for Frozen section. The adhesions to the undersurface of the extensor mechanism were removed as well as around the patellar button. A lateral release was preformed. using a towel clamp to replicate the imbricated medial retinacular repair, the patella tracked thumbs free. The poly was removed in the standard fashion. After irrigating the knee with 3 L normal saline the 9 mm poly was replaced. After the first FiberWire stitch was placed to repair the retinaculum pathology called into the room notifying the OR of significant inflammatory cells and 30-40 Neutrophils per hpf. At that point the FiberWire was removed. Another 1 L of Normal saline was used to irrigate and debrided the soft tissues with Versajet. Another 3 L of Normal Saline was used to irrigate the wound. A 3 min dilute Betadine soak was preformed in the standard fashion followed by another 3 L normal saline irrigation. A large Hemovac drain was placed and laid laterally along the lateral release. The Medial retinacular repair was preformed with 0 PDS in a pants over vest fashion with the knee bent approximately 60 degrees. Range of motion of 0-125 degrees. Again there was good stability and thumbs free tracking of the patella. The deep fascia was closed with 2-0 antibiotic impregnated Vicryl. The subcutaneous layer was closed with antibiotic impregnated 3-0 Vicryl. The skin was closed with Zipline and shield. The limb was cleaned and dried. 4x4 dressing was placed over top followed by ABDs, sterile Webril, and a foot to thigh Rm bandage. The patient was then transferred to the Recovery Room in stable condition. The sponge and needle counts were correct. POST-OP INSTRUCTIONS: The patient will be WBAT. The patient will be admitted to the hospital and will be staying at least 48 hours for C&S. ID will be consulted. Will continue IV Vancomycin.Labs will be obtained during the stay. DVT prophylaxis will included aspirin for 6 weeks, TEDs, and mechanical foot pumps. Will check drain outputs to determine when it can be removed. The dressing will be changed prior to their discharge or postop day #2 and covered with a Silverlon dressing, whichever comes first. I attest to the content of the Intraoperative Record and any orders documented therein. Any exceptions are noted below.
[2021-11-18] MEDS ORDERED: METOCLOPRAMIDE HCL INJ 5 MG/ML 2 ML VIAL IV PRN (14:11)
[2021-11-18] MEDS ORDERED: HYDROmorphone INJ 0.5 MG/0.5 ML SYR IV PRN (14:11)
[2021-11-18] MEDS ORDERED: MAGNESIUM HYDROXIDE SUSP 30 ML UDC PO PRN (14:11)
[2021-11-18] MEDS ORDERED: bisacodyL 10 MG SUPP PR PRN (14:11)
[2021-11-18] MEDS ORDERED: NALOXONE HCL 0.4 MG/1 ML VIAL/CARP IV PRN (14:11)
--- NOTE | 2021-11-18 14:11 | Operative Report ---
Post Operative Report Pre & Post Diagnosis Operation Date: 11/18/21 10:20 Pre-Op Diagnosis: Patellar instability of left knee. Post-Op Diagnosis: Patellar instability of left knee, infection of left total knee arthroplasty. I identified the patient and participated in the time-out.: Yes Procedure Operation Date: 11/18/21 10:20 Actual Procedures p Incision and drainage of left total knee, polyexchange, retinacular repair, lateral release.(Left) - Chong Gutierrez MD Surgeon Dr. Chong Gutierrez Ups Driver Kim Sifuentes MD & M BRITTANIE Yeager Estimated Blood Loss 75 Findings Consistent with Post-Op Diagnosis Specimens knee joint aspiration and culture deep knee tissue for fresh frozen test Description of Procedure Pt was taken to operating room, placed under general anesthesia with peripheral nerve block. Pt was given 2g Ancef IV. Prepped and draped in sterile fashion. I was present during the entire case and assisted with positioning, instrumen tation, closure and dressings. Please see Dr. Gutierrez's op report for further detail. Pt was awake and transferred to PACU in stable condition I attest to the content of the Intraoperative Record and any orders documented therein. Any exceptions are noted below.
--- NOTE | 2021-11-18 14:15 | Operative Report ---
Post Operative Report Pre & Post Diagnosis Operation Date: 11/18/21 10:20 Pre-Op Diagnosis: Patellar instability of left knee. Post-Op Diagnosis: Patellar instability of left knee, infection of left total knee arthroplasty. I identified the patient and participated in the time-out.: Yes Procedure Operation Date: 11/18/21 10:20 Actual Procedures p Incision and drainage of left total knee, polyexchange, retinacular repair, lateral release.(Left) - Chong Gutierrez MD Surgeon Dov. Matt FAN Drill Instructor Kim Sifuentes MD & M BRITTANIE Yeager Estimated Blood Loss 75 Findings Consistent with Post-Op Diagnosis Consistent with post op diagnosis Specimens Knee aspirate for culture and sensitivity Synovial fluid swab for culture and sensitivity Knee deep soft tissue for frozen analysis Description of Procedure I participated in prepping dressing and assisted Dr. Gutierrez during the procedure. Please see Dr. Gutierrez note. I attest to the content of the Intraoperative Record and any orders documented therein. Any exceptions are noted below. Supervising Physician Co-Signing Physician Notes Dr. Gutierrez
[2021-11-18] MEDS ORDERED: VANCOMYCIN CONSULT ACTIVE PRN (14:16)
--- NOTE | 2021-11-18 14:47 | Anesthesiology Progress Note ---
Date of Service November 18, 2021 Anesthesia Post Procedure Vital Signs Vital Signs: Temp Pulse Pulse Resp BP BP Pulse Ox 11/18/21 14:45 97.9 F 66 14 133/70 99 11/18/21 14:35 70 15 131/73 96 11/18/21 14:25 60 12 125/66 100 11/18/21 14:15 66 12 116/65 100 11/18/21 14:09 97.9 F 71 18 110/64 100 11/18/21 08:43 99.3 F 92 H 18 156/81 H 96 Pain Intensity Left Knee: Pain Intensity: 7 Transfer of Care Handoff Completed per policy Notes Mental Status: alert / awake / arousable and participated in evaluation Patient Amnestic to Procedure: Yes Nausea / Vomiting: adequately controlled Pain: adequately controlled Airway Patency, RR, SpO2: stable & adequate BP & HR: stable & adequate Hydration State: stable & adequate Neuraxial Anesthesia: was administered and sensory block is resolving Anesthetic Complications: no major complications apparent and Pt Satisfied with anesthetic care
--- NOTE | 2021-11-18 15:08 | XRay Report ---
LEFT KNEE 2 VIEWS History: Left total knee arthroplasty. Degenerative arthritis. Postop. FINDINGS: The patient is status post a left total knee arthroplasty. The hardware is intact. No fract ure or dislocation. Surgical drains are in place. IMPRESSION: Left total knee arthroplasty. No evidence for hardware complication. ACT 112: Negative or not required by law. Electronically signed by: Wilian Hess M.D. 11/18/2021 3:06 PM
[2021-11-18] MEDS ORDERED: DICLOFENAC SOD 1% GEL 100 GM TUBE EXT PRN (15:25)
[2021-11-18] MEDS ORDERED: MELATONIN 3 MG TAB PO PRN (15:37)
[2021-11-18] MEDS: SODIUM CHLORIDE 0.9% 1000ML 1,000 ML IV SCH (15:49)
[2021-11-18] MEDS: Scopolamine CHECK PATCH PLACEMENT SCH (16:06)
[2021-11-18] MEDS: ASCORBIC ACID 500 MG TAB PO SCH (17:49)
[2021-11-18] MEDS: FERROUS GLUCONATE 324 MG TAB PO SCH (17:49)
--- NOTE | 2021-11-18 17:58 | Orthopedic Progress Note ---
Date of Service November 18, 2021 Assessment & Plan (1) Patellar instability of left knee: Plan: POD #0 s/p left knee I&D, poly exchange, Medial retinacular repair and lateral release, doing as well as expected. Regular diet. WBAT with walker and after bulky dressing discontinued lateral stabilizing J knee brace. OOB to chair. Continue pain control. Check labs tomorrow. DVT prophylaxis: TEDs 3 weeks, foot pumps while in hospital, ASA 81 mg BID for 6 weeks. PT/OT. Consult ID. Continue IV Vancomycin D/C planning. Discussed finding with patient and his . Understands he will need to be in the hospital for a minimum 48 hours and will depend on when C&S results are obtained to direct our antibiotics. Understands that will likely be on antibiotics for minimum 8 weeks. If infection returns may require additional surgery. They understood all my instructions and explanations; all their questions were satisfactorily addressed. Present on Admission?: Yes Admission and Anticipated Discharge Date Admission Date: November 18, 2021 Subjective Doing alright Review of Systems Review of Systems: All systems reviewed & are unremarkable except as noted in HPI & below Physical Exam Physical Exam: LLE: Dressing clean, dry, intact. Calf soft. Block still in effect unable to asses sensation or strength. HVAC functioning. Results & Data ([facility]) Vital Signs (Past 12 Hours) Vital Signs Temp Pulse Pulse Pulse Resp BP BP 11/18/21 17:14 75 16 151/83 H 11/18/21 16:16 75 16 135/79 11/18/21 15:49 75 18 153/74 H 11/18/21 15:15 36.6 C 68 18 134/78 11/18/21 14:55 58 L 15 127/64 11/18/21 14:45 36.6 C 66 14 133/70 11/18/21 14:35 70 15 131/73 11/18/21 14:25 60 12 125/66 11/18/21 14:15 66 12 116/65 11/18/21 14:09 36.6 C 71 18 110/64 11/18/21 08:43 37.4 C 92 H 18 156/81 H Pulse Ox 11/18/21 17:14 98 11/18/21 16:16 99 11/18/21 15:49 98 03/23/22 15:15 97 11/18/21 14:55 96 11/18/21 14:45 99 11/18/21 14:35 96 11/18/21 14:25 100 11/18/21 14:15 100 11/18/21 14:09 100 11/18/21 08:43 96 Diagnostic Findings AP and Lateral left knee shows stable TKA components, cemented. No fracture or dislocation. Evidence of drain.
[2021-11-18] MEDS: ACETAMINOPHEN 500 MG TAB PO PRN (18:32)
[2021-11-18] MEDS ORDERED: COUGH DROP (SUGAR FREE) LOZ 24 LOZ/1 BOX BUCCAL ONE (18:34)
[2021-11-18] MEDS: oxyCODONE HCL IR 5 MG TAB (IMMEDIATE RELEASE) PO PRN (19:24)
[2021-11-18] MEDS ORDERED: VANCOMYCIN HCL 1,250 MG in SODIUM CHLORIDE 0.9% 250 ML IV SCH (20:00)
--- NOTE | 2021-11-18 20:41 | Hospitalist Consultation ---
Date of Consultation November 18, 2021 Assessment & Plan (1) Patellar instability of left knee: Antibiotics and dvt prophylaxis by primary team. (2) HTN (hypertension): BP at goal. Will resume home meds. (3) GERD (gastroesophageal reflux disease): resume famotidine. will monitor (4) BPH (benign prostatic hyperplasia): resume tamsulosin History of Present Illness Reason for Consultation: medical management Attending Physician: Chong Gutierrez MD History of Present Illness 76 yo male with PMH described below is admitted for patellar instability of left knee. Patient had the following procedure: p Incision and drainage of left total knee, polyexchange, retinacular repair, lateral release.(Left) - Chong Gutierrez MD Patient is currently doing well. Patient currently has no pain. Allergies Allergy/AdvReac Type Severity Reaction Status Date / Time ketoprofen AdvReac Mild GI upset Verified 11/18/21 08:36 meloxicam AdvReac Mild GI upset Verified 11/18/21 08:36 Home Medications Medication Instructions Recorded Confirmed Type houwjwfr-gsh-qyuzb acid 300 1 tab PO BID tab 05/09/19 11/18/21 History mcg-lycopene 600 mcg-lutein 300 mcg tablet (Centrum Silver Men) vitamins-lipotropics 200 mg-100 mg 2 tab PO BID 01/10/20 11/18/21 History tablet (Lipo-Flavonoid Plus) psyllium husk 3.4 gram/5.4 gram 1 tbsp PO BID 01/29/20 11/18/21 History oral powder (Metamucil) polyethylene glycol 3350 17 17 gm PO DAILY PRN 04/28/20 11/18/21 History gram/dose oral powder (Miralax) tamsulosin 0.4 mg capsule 0.4 mg PO BID cap 05/13/20 11/18/21 History acetaminophen 500 mg tablet 1,000 mg PO Q8 PRN #60 tab 12/17/20 11/18/21 Rx diclofenac sodium 1 % topical gel 4 g TOPICAL QID PRN #100 g 01/20/21 11/18/21 Rx (Voltaren) melatonin 3 mg capsule 3 mg PO HS PRN 04/07/21 11/18/21 History famotidine 40 mg tablet (Pepcid) 40 mg PO .COMPLEX #135 tab 06/04/21 11/18/21 Rx lisinopril 30 mg tablet 30 mg PO QAM #90 tab 07/17/21 11/18/21 Rx amlodipine 5 mg tablet 5 mg PO QAM 09/15/21 11/18/21 History celecoxib 100 mg capsule (Celebrex) 100 mg PO BID #60 cap 11/03/21 11/16/21 Rx Patient History Medical History Benign prostatic hyperplasia with elevated prostate specific antigen (PSA) Bilateral tinnitus Cataract Claustrophobia Eustachian tube dysfunction GERD (gastroesophageal reflux disease) HTN (hypertension), benign Sensorineural hearing loss (SNHL) of both ears Urinary frequency Surgical History H/O knee surgery Right TKA (01/29/20): SAB x1 attempt + PNB at [facility] H/O oral surgery tooth extraction History of colonoscopy History of left knee replacement Left TKA (12/16/20): SAB x1 attempt + PNB at [facility] S/P inguinal hernia repair left S/P mastectomy, bilateral elective- 1969 S/P surgical removal of pilonidal cyst Family History Mother Cardiac disorder Aunt Diabetes Grandmother (Maternal) Diabetes Uncle Melanoma Father History of anesthesia reaction voiding difficulty Denies family history of Ovarian cancer Prostate cancer Myocardial infarction Breast cancer Colorectal cancer Social History Smoking Status: Former smoker Smoking End Date: Quit 20 years ago; Second Hand Exposure: Yes (as a child); Do You Dip or Chew Tobacco: No; Tobacco Cessation Education Requested by Patient: No Hx Alcohol Use: Yes Alcohol type: beer, wine and hard liquor Hx Substance Use: No Preferred Language: Mohawk Communication Ability: Effective Visual Impairment: Partially Limited Hearing Ability: Normal Bobbin Presser Required: No Beliefs That Will Affect Care: None marital status: Current Living Situation: Family current occupational status: retired How many Children do You have: 1 How many Children do You have Comment: 1 boy Other Information That Helps Us Care for You: No Feels Safe at Home: Yes Safety Concerns: Feels Safe At This Time Childhood Exposure to Second-Hand Smoke: Yes during the past year weight has: remained stable Dental Care, Regularly: Yes Physical Activity Frequency: Daily Seatbelt Use: always Sunscreen Use: Yes Assistive Devices: Walker Review of Systems Constitutional: + body aches Eyes: no blind spots Ear, Nose, Mouth, Throat: no ear pain Respiratory: no cough Cardiovascular: no chest pain Gastrointestinal: no abdominal pain Genitourinary: no dysuria Musculoskeletal: no back pain Integumentary: no acne and no rash Neurologic: no gait abnormality Psychiatric: no behavioral changes Endocrine: no fatigue Hematologic / Lymphatic: no easy bleeding Allergy / Immunological: no GI upset with certain foods Physical Exam Constitutional: WD/WN, vitals as above Eyes: PERRL, conjunctivae normal, anicteric sclerae ENMT: external ear and nose normal, oropharynx normal Neck: trachea midline, no thyromegaly Respiratory: normal respiratory effort, lungs clear to auscultation Cardiovascular: RRR, no murmur, no edema Gastrointestinal (Abdomen): normal bowel sounds, soft, nontender, no hepatosplenomegaly Musculoskeletal: no cyanosis or clubbing, extremities motor strength 5/5 (Left lower extremity: dressing intacted. hemovac placed.) Skin: no rashes, warm and dry Neurologic: PERRL, EOMI, accommodation nl, no face palsy, no dysarthria Psychiatric: A+Ox3, euthymic affect Lymphatic: no cervical or axillary lymphadenopathy Results & Data Results & Data ([facility]) Vital Signs (Past 12 Hours) Vital Signs Temp Pulse Pulse Pulse Resp BP BP 11/18/21 18:15 37.2 C 81 16 132/73 11/18/21 17:14 75 16 151/83 H 11/18/21 16:16 75 16 135/79 11/18/21 15:49 75 18 153/74 H 11/18/21 15:15 36.6 C 68 18 134/78 11/18/21 14:55 58 L 15 127/64 11/18/21 14:45 36.6 C 66 14 133/70 11/18/21 14:35 70 15 131/73 11/18/21 14:25 60 12 125/66 11/18/21 14:15 66 12 116/65 11/18/21 14:09 36.6 C 71 18 110/64 11/18/21 08:43 37.4 C 92 H 18 156/81 H Pulse Ox 11/18/21 18:15 98 11/18/21 17:14 98 11/18/21 16:16 99 11/18/21 15:49 98 11/18/21 15:15 97 11/18/21 14:55 96 11/18/21 14:45 99 11/18/21 14:35 96 11/18/21 14:25 100 11/18/21 14:15 100 11/18/21 14:09 100 11/18/21 08:43 96 PG Care Time/CCT Total # of Minutes Spent Total Time Spent with Patient: Total time spent is greater than 50% in coordination of care (as documented) at patient's floor/unit and/or counseling patient: Coding Level of Care Code 91417 Inpt Consult Level 3 Diagnoses Patellar instability of left knee M25.362 HTN (hypertension) I10 Hypertension type: essential hypertension GERD (gastroesophageal reflux disease) K21.9 Esophagitis presence: esophagitis presence not specified BPH (benign prostatic hyperplasia) N40.0 (1) HTN (hypertension) Hypertension type: essential hypertension Qualified Code(s): I10 - Essential (primary) hypertension (2) GERD (gastroesophageal reflux disease) Esophagitis presence: esophagitis presence not specified Qualified Code(s): K21.9 - Gastro-esophageal reflux disease without esophagitis
[2021-11-18] MEDS ORDERED: NON-FORMULARY MEDICATION (Vitamins-Lipotropics [Lipo-Flavonoid Plus] 200-100 mg Tablet) PO SCH (21:00)
[2021-11-18] MEDS: PSYLLIUM 58.6% POWDER PACKET PO SCH (21:23)
[2021-11-18] MEDS: DOCUSATE SODIUM 100 MG CAP PO SCH (21:24)
[2021-11-18] MEDS: TAMSULOSIN HCL 0.4 MG CAP PO SCH (21:25)
[2021-11-18] MEDS: SENNA 8.6 MG TAB PO SCH (21:25)
[2021-11-18] MEDS: CEROVITE ADV FORMULA TAB PO SCH (21:26)
[2021-11-18] MEDS: FAMOTIDINE 20 MG TAB PO SCH (21:31)
[2021-11-18] MEDS ORDERED: ACETAMINOPHEN 500 MG TAB PO SCH (22:00)
[2021-11-19] MEDS: oxyCODONE HCL IR 5 MG TAB (IMMEDIATE RELEASE) PO PRN ×2 (00:37→09:38)
[2021-11-19] MEDS: Scopolamine CHECK PATCH PLACEMENT SCH ×2 (00:38→08:37)
[2021-11-19] MEDS: SODIUM CHLORIDE 0.9% 1000ML 1,000 ML IV SCH (00:42)
[2021-11-19] MEDS: ACETAMINOPHEN 500 MG TAB PO PRN ×2 (04:02→16:47)
[2021-11-19 06:49] LABS: Hematocrit (blood only) 33.1 % (42-52); Hemoglobin 11.2 g/dL (14.0-18.0); Mean Corpuscular Hemoglobin 29.9 pg (25-34); Mean Corpuscular Hgb Conc 33.8 g/dL (32-36); Mean Corpuscular Volume 88.3 fL (80-100); Mean Platelet Volume 9.4 fL (7.4-10.4); Platelet Count 210 K/uL (130-400); RDW Coefficient of Variation 14.3 % (11.5-14.5); RDW Standard Deviation 46.6 fL (36.4-46.3); Red Blood Count 3.75 M/uL (4.7-6.1); White Blood Count 7.45 K/uL (4.8-10.8)
[2021-11-19 07:08] LABS: C Reactive Protein 10.25 mg/dl (0-0.5); Calcium 8.3 mg/dl (8.5-10.1); Creatinine Clr Calc Pharmacy 148.3 ml/min; Est GFR (African American) 123.7 ml/min; Est GFR (Non-African American) 106.8 ml/min; Potassium 3.6 mmol/L (3.5-5.1)
[2021-11-19] MEDS: FERROUS GLUCONATE 324 MG TAB PO SCH ×2 (08:35→16:48)
[2021-11-19] MEDS: TAMSULOSIN HCL 0.4 MG CAP PO SCH ×2 (08:35→19:51)
[2021-11-19] MEDS: lisinopril 10 MG TAB PO SCH (08:35)
[2021-11-19] MEDS: MULTIVITAMIN TAB PO SCH (08:36)
[2021-11-19] MEDS: CEROVITE ADV FORMULA TAB PO SCH ×2 (08:36→19:52)
[2021-11-19] MEDS: ASCORBIC ACID 500 MG TAB PO SCH ×2 (08:36→16:48)
--- NOTE | 2021-11-19 08:36 | Orthopedic Progress Note ---
Date of Service November 19, 2021 Assessment & Plan (1) Patellar instability of left knee: Plan: POD #1 s/p left knee I&D, poly exchange, Medial retinacular repair and lateral release, doing as well as expected. Regular diet. WBAT with walker and after bulky dressing discontinued lateral stabilizing J knee brace. OOB to chair. Continue pain control. DVT prophylaxis: TEDs 3 weeks, foot pumps while in hospital, ASA 81 mg BID for 6 weeks. PT/OT. Encouraged bedside exercises. Consult ID. - pending Continue IV Vancomycin Hemovac left in place today. Will plan to remove this afternoon or tomorrow. Plans for dressing change tomorrow. D/C planning. Findings will be discussed with Dr. Gutierrez. Admission and Anticipated Discharge Date Admission Date: November 18, 2021 Supervising Physician Co-Signing Physician Notes I, Dr. Gutierrez, saw and examined the patient and discussed the management with my PA. I reviewed my PAs note and agree with the documented findings and the plan of care I developed. Subjective Patient doing well this morning. Mild pain in left knee, better at rest, 8/10 with weight bearing. Denies chest pain, shortness of breath, abdominal pain, lightheadedness, dizziness. Tolerating a regular diet, patient states that he has his normal appetite. Physical Exam Musculoskeletal: Left knee dressings left in place. Hemovac functioning. Able to lift his leg just a little off the bed independently. Distal pulses 1+, distal sensation normal. No calf tenderness, mild distal edema. tolerates ROM of left hip without discomfort. Results & Data ([facility]) Vital Signs (Past 12 Hours) Vital Signs Temp Pulse Pulse Resp BP Pulse Ox 11/19/21 07:39 37.5 C 85 18 140/72 92 11/19/21 05:42 38.2 C H 11/19/21 03:57 38.1 C H 95 H 18 144/72 H 95 11/18/21 21:18 37.2 C 81 18 137/71 92 Laboratory Results 11/19/21 11/19/21 11/19/21 Range/Units 06:16 06:16 06:16 WBC 7.45 (4.8-10.8) K/uL RBC 3.75 L (4.7-6.1) M/uL Hgb 11.2 L (14.0-18.0) g/dL Hct 33.1 L (42-52) % MCV 88.3 (80-100) fL MCH 29.9 (25-34) pg MCHC 33.8 (32-36) g/dL RDW Std Deviation 46.6 H (36.4-46.3) fL RDW Coeff of Florin 14.3 (11.5-14.5) % Plt Count 210 (130-400) K/uL MPV 9.4 (7.4-10.4) fL ESR 23 H (0-20) mm/hr Sodium 133 L (136-145) mmol/L Potassium 3.6 (3.5-5.1) mmol/L Chloride 100 (98-107) mmol/L Carbon Dioxide 26 (21-32) mmol/L Anion Gap 7 (3-11) BUN 8 (6-23) mg/dl Creatinine 0.50 L (0.6-1.4) mg/dl Est Cr Clr Drug Dosing 148.3 ml/min Est GFR ( Amer) 123.7 ml/min Est GFR (Non-Af Amer) 106.8 ml/min BUN/Creatinine Ratio 16.0 (10-20) Glucose 123 H (70-99(Fasting)) mg/dl Calcium 8.3 L (8.5-10.1) mg/dl C-Reactive Protein 10.25 H (0-0.5) mg/dl Blood Type Antibody Screen 11/18/21 Range/Units 08:05 WBC (4.8-10.8) K/uL RBC (4.7-6.1) M/uL Hgb (14.0-18.0) g/dL Hct (42-52) % MCV (80-100) fL MCH (25-34) pg MCHC (32-36) g/dL RDW Std Deviation (36.4-46.3) fL RDW Coeff of Florin (11.5-14.5) % Plt Count (130-400) K/uL MPV (7.4-10.4) fL ESR (0-20) mm/hr Sodium (136-145) mmol/L Potassium (3.5-5.1) mmol/L Chloride (98-107) mmol/L Carbon Dioxide (21-32) mmol/L Anion Gap (3-11) BUN (6-23) mg/dl Creatinine (0.6-1.4) mg/dl Est Cr Clr Drug Dosing ml/min Est GFR ( Amer) ml/min Est GFR (Non-Af Amer) ml/min BUN/Creatinine Ratio (10-20) Glucose (70-99(Fasting)) mg/dl Calcium (8.5-10.1) mg/dl C-Reactive Protein (0-0.5) mg/dl Blood Type B Negative Antibody Screen NEGATIVE Gram Stain Final 11/18/21-1326 Gram Stain Result Moderate WBCs Seen No Organisms Seen
[2021-11-19] MEDS: DOCUSATE SODIUM 100 MG CAP PO SCH ×2 (08:39→19:51)
[2021-11-19] MEDS: PSYLLIUM 58.6% POWDER PACKET PO SCH ×2 (08:40→19:52)
[2021-11-19] MEDS: FAMOTIDINE 20 MG TAB PO SCH ×2 (08:45→20:08)
[2021-11-19] MEDS: amLODIPine BESYLATE 5 MG TAB PO SCH (10:04)
--- NOTE | 2021-11-19 10:05 | Hospitalist Progress Note ---
Date of Service November 19, 2021 Assessment & Plan (1) Left knee pain: (2) HTN (hypertension): (3) History of colon polyps: Admission and Anticipated Discharge Date Admission Date: November 18, 2021 Review of Systems Review of Systems: I certify that this patient is under my care and that I, or a physicians financial administrative assistant working with me, had a face to-face encounter that meets the home health [id number] encounter requirements with this patient. The encounter with the patient was in whole, or in part, for the following medical condition, which is the primary reason for home health care (list medical condition): I certify that, based on my findings, the following services are medically necessary home health services: My clinical findings support the need for the above services because: Further, I certify that my clinical findings support that this patient is homebound (i.e. absences from home require considerable and taxing effort and are for medical reasons or scientologist services or infrequently or of short duration when for other reasons) because: Certification for Home Health Services: Based on the above findings, I certify that this patient is confined to the home and needs intermittent residential care, physical therapy and/or speech therapy or continues to need occupational therapy. The patient is under my care, and I have initiated the establishment of the plan of care. This patient will be followed by a physician who will periodically review the plan of care. Abnormal lab results 11/19/21 11/19/21 11/19/21 Range/Units 06:16 06:16 06:16 RBC 3.75 L (4.7-6.1) M/uL Hgb 11.2 L (14.0-18.0) g/dL Hct 33.1 L (42-52) % RDW Std Deviation 46.6 H (36.4-46.3) fL ESR 23 H (0-20) mm/hr Sodium 133 L (136-145) mmol/L Creatinine 0.50 L (0.6-1.4) mg/dl Glucose 123 H (70-99(Fasting)) mg/dl Calcium 8.3 L (8.5-10.1) mg/dl C-Reactive Protein 10.25 H (0-0.5) mg/dl Current Inpatient Medications Acetaminophen (Acetaminophen 500 Mg Tab) 1,000 mg PO Q8 PRN PRN Reason: pain or fever Stop: 12/18/21 15:24 Last Admin: 11/19/21 04:02 Dose: 1,000 mg Documented by: Amlodipine Besylate (Amlodipine Besylate 5 Mg Tab) 5 mg PO QAM [facility] Stop: 12/19/21 08:59 Ascorbic Acid (Ascorbic Acid 500 Mg Tab) 500 mg PO BIDM [facility] Stop: 12/18/21 16:59 Last Admin: 11/19/21 08:36 Dose: 500 mg Documented by: Aspirin (Aspirin 81 Mg Ectab) 81 mg PO BID [facility] Stop: 12/19/21 20:59 Bisacodyl (Bisacodyl 10 Mg Supp) 10 mg KS DAILY PRN PRN Reason: Constipation Stop: 12/18/21 14:10 Diclofenac Sodium (Diclofenac Sod 1% Gel 100 Gm Tube) 4 gm EXT QID PRN PRN Reason: Pain Stop: 12/18/21 15:24 Docusate Sodium (Docusate Sodium 100 Mg Cap) 100 mg PO BID [facility] Stop: 12/18/21 20:59 Last Admin: 11/19/21 08:39 Dose: 100 mg Documented by: Famotidine (Famotidine 20 Mg Tab) 20 mg PO BID [facility] Stop: 12/18/21 20:59 Last Admin: 11/19/21 08:45 Dose: 20 mg Documented by: Ferrous Gluconate (Ferrous Gluconate 324 Mg Tab) 324 mg PO BIDM [facility] Stop: 12/18/21 16:59 Last Admin: 11/19/21 08:35 Dose: 324 mg Documented by: Hydromorphone HCl (Hydromorphone Inj 0.5 Mg/0.5 Ml Syr) 0.5 mg IV Q4H PRN PRN Reason: Pain or Pre PT Stop: 12/02/21 14:10 Lisinopril (Lisinopril 10 Mg Tab) 30 mg PO QAM [facility] Stop: 12/19/21 08:59 Last Admin: 11/19/21 08:35 Dose: 30 mg Documented by: Magnesium Hydroxide (Magnesium Hydroxide Susp 30 Ml Udc) 30 ml PO Q6H PRN PRN Reason: Constipation Stop: 12/18/21 14:10 Melatonin (Melatonin 3 Mg Tab) 3 mg PO HS PRN PRN Reason: Sleep Stop: 12/18/21 15:36 Metoclopramide HCl (Metoclopramide Hcl Inj 5 Mg/Ml 2 Ml Vial) 10 mg IV Q6H PRN PRN Reason: Nausea And Vomiting Stop: 12/18/21 14:10 Miscellaneous (Scopolamine Check Patch Placement) 1 ea N/A QS [facility] Stop: 11/21/21 07:59 Last Admin: 11/19/21 08:37 Dose: 1 ea Documented by: Miscellaneous (Scopolamine Remove Transderm Patch) 1 ea N/A ONE ONE Stop: 11/21/21 08:01 Multivitamins (Multivitamin Tab) 1 tab PO QAM [facility] Stop: 12/19/21 08:59 Last Admin: 11/19/21 08:36 Dose: 1 tab Documented by: Multivitamins/Minerals (Cerovite Adv Formula Tab) 1 tab PO BID [facility] Stop: 12/18/21 20:59 Last Admin: 11/19/21 08:36 Dose: 1 tab Documented by: Naloxone HCl (Naloxone Hcl 0.4 Mg/1 Ml Vial/Carp) 0.1 mg IV Q5M PRN PRN Reason: Oversedation/Resp Depression Stop: 12/18/21 14:10 Ondansetron HCl (Ondansetron Inj 2 Mg/Ml 2 Ml Vial) 4 mg IV Q6H PRN PRN Reason: Nausea And Vomiting Stop: 12/18/21 14:10 Oxycodone HCl (Oxycodone Hcl Ir 5 Mg Tab (Immediate Release)) 5 - 10 mg PO Q4H PRN PRN Reason: Pain or Pre PT Stop: 12/02/21 14:10 Last Admin: 11/19/21 09:38 Dose: 5 mg Documented by: Polyethylene Glycol (Polyethylene (Miralax) 17 Gm Pack) 17 gm PO DAILY PRN PRN Reason: Constipation Stop: 12/18/21 15:24 Psyllium Hydrophilic Mucilloid (Psyllium 58.6% Powder Packet) 1 pkt PO BID [facility] Stop: 12/18/21 20:59 Last Admin: 11/19/21 08:40 Dose: 1 pkt Documented by: Sennosides (Senna 8.6 Mg Tab) 17.2 mg PO HS [facility] Stop: 12/18/21 20:59 Last Admin: 11/18/21 21:25 Dose: 17.2 mg Documented by: Tamsulosin HCl (Tamsulosin Hcl 0.4 Mg Cap) 0.4 mg PO BID [facility] Stop: 12/18/21 20:59 Last Admin: 11/19/21 08:35 Dose: 0.4 mg Documented by: Home Medications Medication Instructions Recorded Confirmed Last Taken axpgspdn-sid-cegxg acid 300 1 tab PO BID tab 05/09/19 11/18/21 11/17/21 21:00 mcg-lycopene 600 m cg-lutein 300 mcg tablet (Centru m Silver Men) vitamins-lipotropi cs 200 mg-100 mg 2 tab PO BID 01/10/20 11/18/21 11/16/21 09:00 tablet (Lipo-Flavo noid Plus) psyllium husk 3.4 gram/5.4 gram 1 tbsp PO BID 01/29/20 11/18/21 11/17/21 21:00 oral powder (Metam ucil) polyethylene glyco l 3350 17 17 gm PO DAILY PRN 04/28/20 11/18/21 11/16/21 gram/dose oral pow geoff (Miralax) tamsulosin 0.4 mg capsule 0.4 mg PO BID cap 05/13/20 11/18/21 11/18/21 07:00 acetaminophen 500 mg tablet 1,000 mg PO Q8 PRN #60 tab 12/17/20 11/18/21 11/18/21 08:15 diclofenac sodium 1 % topical gel 4 g TOPICAL QID KS N #100 g 01/20/21 11/18/21 Unknown (Voltaren) melatonin 3 mg cap angelica 3 mg PO HS PRN 04/07/21 11/18/21 11/17/21 21:00 famotidine 40 mg t ablet (Pepcid) 40 mg PO .COMPLEX #135 tab 06/04/21 11/18/21 11/18/21 08:15 lisinopril 30 mg t ablet 30 mg PO QAM #90 t ab 07/17/21 11/18/21 11/17/21 07:00 amlodipine 5 mg ta blet 5 mg PO QAM 09/15/21 11/18/21 11/18/21 07:00 celecoxib 100 mg c apsule (Celebrex) 100 mg PO BID #60 cap 11/03/21 11/16/21 11/18/21 08:15 Active Medications Generic Name Dose Route Start Last Admin Trade Name Freq PRN Reason Stop Dose Admin Acetaminophen 1,000 mg 11/18/21 15:25 11/19/21 04:02 Acetaminophen 50 0 Mg Tab PO 12/18/21 15:24 1,000 mg Q8 PRN Administration pain or fever Ascorbic Acid 500 mg 11/18/21 17:00 11/19/21 08:36 Ascorbic Acid 50 0 Mg Tab PO 12/18/21 16:59 500 mg BIDM [facility] Administration Docusate Sodium 100 mg 11/18/21 21:00 11/19/21 08:39 Docusate Sodium 100 Mg Cap PO 12/18/21 20:59 100 mg BID [facility] Administration Famotidine 20 mg 11/18/21 21:00 11/19/21 08:45 Famotidine 20 Mg Tab PO 12/18/21 20:59 20 mg BID [facility] Administration Ferrous Gluconate 324 mg 11/18/21 17:00 11/19/21 08:35 Ferrous Gluconat e 324 Mg Tab PO 12/18/21 16:59 324 mg BIDM [facility] Administration Lisinopril 30 mg 11/19/21 09:00 11/19/21 08:35 Lisinopril 10 Mg Tab PO 12/19/21 08:59 30 mg QAM [facility] Administration Miscellaneous 1 ea 11/18/21 16:00 11/19/21 08:37 Scopolamine Chec k Patch Placement N/A 11/21/21 07:59 1 ea QS [facility] Administration Multivitamins 1 tab 11/19/21 09:00 11/19/21 08:36 Multivitamin Tab PO 12/19/21 08:59 1 tab QAM [facility] Administration Multivitamins/Mine rals 1 tab 11/18/21 21:00 11/19/21 08:36 Cerovite Adv For marisa Tab PO 12/18/21 20:59 1 tab BID [facility] Administration Oxycodone HCl 5 - 10 mg 11/18/21 14:11 11/19/21 09:38 Oxycodone Hcl Ir 5 Mg Tab (Immedia te Release) PO 12/02/21 14:10 5 mg Q4H PRN Administration Pain or Pre PT Psyllium Hydrophil ic Mucilloid 1 pkt 11/18/21 21:00 11/19/21 08:40 Psyllium 58.6% P owder Packet PO 12/18/21 20:59 1 pkt BID [facility] Administration Sennosides 17.2 mg 11/18/21 21:00 11/18/21 21:25 Senna 8.6 Mg Tab PO 12/18/21 20:59 17.2 mg HS [facility] Administration Tamsulosin HCl 0.4 mg 11/18/21 21:00 11/19/21 08:35 Tamsulosin Hcl 0 .4 Mg Cap PO 12/18/21 20:59 0.4 mg BID [facility] Administration Constitutional: + weakness; no malaise Risk Factors for Stroke: You can reduce your chances of stroke by working with your medical provider to adopt a healthy lifestyle. Some specific ways to lower your chance of stroke are: * If you are a smoker, now is the time to stop smoking cigarettes * If you are diabetic, improve the control of your blood sugars * Avoid excessive amounts of alcohol * Control high blood pressure * Lose weight if you are overweight * Be sure to lead an active lifestyle * Eat a healthy diet low in salt, cholesterol and fat You should know about other risk factors for stroke that you are unable to control. These include: * Age 55 years or older * Male gender * Certain racial groups: , or / * Family History of Stroke, Mini stroke or Heart Attack * Sickle Cell Disease Follow Up: It is important for you to keep your follow up appointments with your medical provider. Who to Call and When: Medical Emergencies: Call 911 immediately if you experience any of the following warning signs and symptoms of Stroke: * Sudden numbness or weakness of the face, arm or leg, especially on one side of the body * Sudden confusion, trouble speaking or understanding * Sudden trouble seeing in one or both eyes * Sudden trouble walking, dizziness, loss of balance or coordination * Sudden severe headache with no cause Do not delay calling 911 if you experience any warning signs or symptoms of a stroke. Delay in seeking medical attention may affect what treatments can be given to you. . Physical Exam Constitutional: well developed Results & Data Results & Data ([facility]) Vital Signs (Past 12 Hours) Vital Signs Temp Pulse Pulse Resp BP Pulse Ox 11/19/21 07:39 37.5 C 85 18 140/72 92 11/19/21 05:42 38.2 C H 11/19/21 03:57 38.1 C H 95 H 18 144/72 H 95 Laboratory Results Microbiology 11/18/21 12:20 Knee,Left Gram Stain - Final 11/18/21 12:20 Knee,Left Gram Stain - Final PG Care Time/CCT Total # of Minutes Spent Total Time Spent with Patient: Total time spent is greater than 50% in coordination of care (as documented) at patient's floor/unit and/or counseling patient: Coding Diagnoses Left knee pain M25.562 HTN (hypertension) I10 Hypertension type: essential hypertension History of colon polyps Z86.010 (1) HTN (hypertension) Hypertension type: essential hypertension Qualified Code(s): I10 - Essential (primary) hypertension
[2021-11-19] MEDS ORDERED: Nursing to Pharmacy Communication SCH (13:30)
[2021-11-19] MEDS ORDERED: VANCOMYCIN CONSULT ACTIVE PRN (16:21)
[2021-11-19] MEDS ORDERED: VANCOMYCIN HCL 2,250 MG in SODIUM CHLORIDE 0.9% 500 ML IV ONE (17:00)
[2021-11-19] MEDS: CEFEPIME 2,000 MG in SYRINGE 0 ML IV SCH (17:28)
[2021-11-19] MEDS: ASPIRIN 81 MG ECTAB PO SCH (19:51)
[2021-11-19] MEDS: SENNA 8.6 MG TAB PO SCH (19:52)
[2021-11-19] MEDS: POLYETHYLENE (MIRALAX) 17 GM PACK PO PRN (20:08)
--- NOTE | 2021-11-19 20:52 | Hospitalist Progress Note ---
Date of Service November 19, 2021 Assessment & Plan (1) Patellar instability of left knee: Plan: Antibiotics and dvt prophylaxis by primary team. Concern for septic arthritis. Appreciate input by ID. Antibiotics were ordered and given prior to blod culture given patient's fever and tachycardia. Placed on cefepime and vanco. will continue to monitor vitals. (2) HTN (hypertension): Plan: BP at goal. Will resume home meds. (3) GERD (gastroesophageal reflux disease): Plan: resume famotidine. will monitor (4) BPH (benign prostatic hyperplasia): Plan: resume tamsulosin Admission and Anticipated Discharge Date Admission Date: November 18, 2021 Subjective Patient reports feeling feverish. Nurse called as patient was tachycardic and having a temperature. Patient though is feeling well. Review of Systems Constitutional: + body aches Eyes: no blind spots Ear, Nose, Mouth, Throat: no ear pain Respiratory: no cough Cardiovascular: no chest pain Gastrointestinal: no abdominal pain Genitourinary: no dysuria Musculoskeletal: no back pain Integumentary: no acne and no rash Neurologic: no gait abnormality Psychiatric: no behavioral changes Endocrine: no fatigue Hematologic / Lymphatic: no easy bleeding Allergy / Immunological: no GI upset with certain foods Physical Exam Constitutional: WD/WN, vitals as above Eyes: PERRL, conjunctivae normal, anicteric sclerae ENMT: external ear and nose normal, oropharynx normal Neck: trachea midline, no thyromegaly Respiratory: normal respiratory effort, lungs clear to auscultation Cardiovascular: RRR, no murmur, no edema Gastrointestinal (Abdomen): normal bowel sounds, soft, nontender, no hepatosplenomegaly Musculoskeletal: no cyanosis or clubbing, extremities motor strength 5/5 (Left lower extremity: dressing intacted. hemovac placed.) Skin: no rashes, warm and dry Neurologic: PERRL, EOMI, accommodation nl, no face palsy, no dysarthria Psychiatric: A+Ox3, euthymic affect Lymphatic: no cervical or axillary lymphadenopathy Results & Data Results & Data ([facility]) Vital Signs (Past 12 Hours) Vital Signs Temp Pulse Pulse Resp BP Pulse Ox 11/19/21 15:21 38.1 C H 97 H 18 146/80 H 97 11/19/21 11:16 37.0 C 77 16 140/80 99 PG Care Time/CCT Total # of Minutes Spent Total Time Spent with Patient: Total time spent is greater than 50% in coordination of care (as documented) at patient's floor/unit and/or counseling patient: Coding Level of Care Code 58143 Subseq Hosp Care Lvl 3 Diagnoses Patellar instability of left knee M25.362 HTN (hypertension) I10 Hypertension type: essential hypertension GERD (gastroesophageal reflux disease) K21.9 Esophagitis presence: esophagitis presence not specified BPH (benign prostatic hyperplasia) N40.0 (1) HTN (hypertension) Hypertension type: essential hypertension Qualified Code(s): I10 - Essential (primary) hypertension (2) GERD (gastroesophageal reflux disease) Esophagitis presence: esophagitis presence not specified Qualified Code(s): K21.9 - Gastro-esophageal reflux disease without esophagitis
[2021-11-20] MEDS: CEFEPIME 2,000 MG in SYRINGE 0 ML IV SCH ×3 (00:35→17:45)
[2021-11-20] MEDS: oxyCODONE HCL IR 5 MG TAB (IMMEDIATE RELEASE) PO PRN (04:42)
[2021-11-20] MEDS: VANCOMYCIN HCL 1,500 MG in SODIUM CHLORIDE 0.9% 500 ML IV SCH ×2 (04:42→17:45)
[2021-11-20] MEDS: CEROVITE ADV FORMULA TAB PO SCH ×2 (08:01→19:55)
[2021-11-20] MEDS: DOCUSATE SODIUM 100 MG CAP PO SCH ×2 (08:01→19:54)
[2021-11-20] MEDS: TAMSULOSIN HCL 0.4 MG CAP PO SCH ×2 (08:02→19:54)
[2021-11-20] MEDS: lisinopril 10 MG TAB PO SCH (08:02)
[2021-11-20] MEDS: ASPIRIN 81 MG ECTAB PO SCH ×2 (08:02→19:55)
[2021-11-20] MEDS: ASCORBIC ACID 500 MG TAB PO SCH ×2 (08:02→17:44)
[2021-11-20] MEDS: amLODIPine BESYLATE 5 MG TAB PO SCH (08:02)
[2021-11-20] MEDS: FERROUS GLUCONATE 324 MG TAB PO SCH ×2 (08:03→17:44)
[2021-11-20] MEDS: PSYLLIUM 58.6% POWDER PACKET PO SCH ×2 (08:03→19:53)
[2021-11-20] MEDS: FAMOTIDINE 20 MG TAB PO SCH ×2 (08:07→20:00)
[2021-11-20] MEDS: MULTIVITAMIN TAB PO SCH (09:35)
[2021-11-20] MEDS: POLYETHYLENE (MIRALAX) 17 GM PACK PO PRN ×2 (09:36→19:53)
--- NOTE | 2021-11-20 11:35 | Orthopedic Progress Note ---
Date of Service November 20, 2021 Assessment & Plan (1) Patellar instability of left knee: Plan: POD #2 s/p left knee I&D, poly exchange, Medial retinacular repair and lateral release, doing as well as expected. Regular diet. WBAT with walker OOB to chair. Continue pain control. DVT prophylaxis: TEDs 3 weeks, foot pumps while in hospital, ASA 81 mg BID for 6 weeks. PT/OT. Encouraged bedside exercises. ID consulted and Sensitivities are pending Continue IV Vancomycin & Cefepime Hemovac Removed and Mediplex dressing was applied D/C planning. Findings will be discussed with Dr. Gutierrez. Admission and Anticipated Discharge Date Admission Date: November 18, 2021 Supervising Physician Co-Signing Physician Notes I, Dr. Gutierrez, saw and examined the patient and discussed the management with my PA. I reviewed my PAs note and agree with the documented findings and the plan of care I developed. Subjective This 76-year-old male seen today. He is 2 days status post s/p left knee I&D, poly exchange, Medial retinacular repair and lateral release. Patient has no complaints this morning. He states his pain is well controlled with p.o. pain medication. He is ready to have the operative dressing and drain removed. He denies chest pain, shortness of breath, fever, chills, sweats, lethargy or numbness or tingling in his left lower extremity. Review of Systems Review of Systems: All systems reviewed & are unremarkable except as noted in Subjective Physical Exam Physical Exam: Left knee Outer dressings were removed from the patient's left lower extremity. Silverlon ensured are in place and intact. There is no fluctuance or drainage. I did cover the drain site with a sterile 2 x 2 and a Tegaderm before applying the Mediplex dressing over his knee incision. Patient is able to actively extend his knee to 0 degrees and flex to 75 degrees without difficulty. He is able to form a straight leg raise test. He is able to actively dorsi and plantarflex foot without difficulty. He is neurovascularly intact in the left lower extremity. Results & Data ([facility]) Vital Signs (Past 12 Hours) Vital Signs Temp Pulse Resp BP Pulse Ox 11/20/21 07:17 37.2 C 92 H 16 142/74 H 92 Laboratory Results Microbiology 11/18/21 12:20 Gram Stain - Final Knee,Left Aerobic and Anaerobic Culture - Preliminary Staphylococcus species Staphylococcus species#2 11/18/21 12:20 Gram Stain - Final Knee,Left Aerobic and Anaerobic Culture - Preliminary Pin-point growth present, reincubating. Diagnostic Findings Laboratory Results WBC 7.45 K/uL (4.8-10.8) 11/19/21 06:16 RBC 3.75 M/uL (4.7-6.1) L 11/19/21 06:16 Hgb 11.2 g/dL (14.0-18.0) L 11/19/21 06:16 Hct 33.1 % (42-52) L 11/19/21 06:16 MCV 88.3 fL (80-100) 11/19/21 06:16 MCH 29.9 pg (25-34) 11/19/21 06:16 MCHC 33.8 g/dL (32-36) 11/19/21 06:16 RDW Std Deviation 46.6 fL (36.4-46.3) H 11/19/21 06:16 RDW Coeff of Florin 14.3 % (11.5-14.5) 11/19/21 06:16 Plt Count 210 K/uL (130-400) 11/19/21 06:16 MPV 9.4 fL (7.4-10.4) 11/19/21 06:16 ESR 23 mm/hr (0-20) H 11/19/21 06:16 Sodium 133 mmol/L (136-145) L 11/19/21 06:16 Potassium 3.6 mmol/L (3.5-5.1) 11/19/21 06:16 Chloride 100 mmol/L (98-107) 11/19/21 06:16 Carbon Dioxide 26 mmol/L (21-32) 11/19/21 06:16 Anion Gap 7 (3-11) 11/19/21 06:16 BUN 8 mg/dl (6-23) 11/19/21 06:16 Creatinine 0.50 mg/dl (0.6-1.4) L 11/19/21 06:16 Est Cr Clr Drug Dosing 148.3 ml/min 11/19/21 06:16 Est GFR ( Amer) 123.7 ml/min 11/19/21 06:16 Est GFR (Non-Af Amer) 106.8 ml/min 11/19/21 06:16 BUN/Creatinine Ratio 16.0 (10-20) 11/19/21 06:16 Glucose 123 mg/dl (70-99(Fasting)) H 11/19/21 06:16 Calcium 8.3 mg/dl (8.5-10.1) L 11/19/21 06:16 C-Reactive Protein 10.25 mg/dl (0-0.5) H 11/19/21 06:16 SARS-CoV-2, RNA, NAAT NEGATIVE (NEGATIVE) 11/18/21 08:00 Blood Type B Negative 11/18/21 08:05 Antibody Screen NEGATIVE 11/18/21 08:05 Crossmatch See Detail 11/18/21 08:05 Impressions Knee X-Ray 11/18/21 14:20 LEFT KNEE 2 VIEWS History: Left total knee arthroplasty. Degenerative arthritis. Postop. FINDINGS: The patient is status post a left total knee arthroplasty. The hardware is intact. No fracture or dislocation. Surgical drains are in place. IMPRESSION: Left total knee arthroplasty. No evidence for hardware complication. ACT 112: Negative or not required by law. Electronically signed by: Wilian Hess M.D. 11/18/2021 3:06 PM
--- NOTE | 2021-11-20 11:40 | Pharmacy Report ---
Pharmacy Vanc AUC Short Note - Date of Service November 20, 2021 - Assessment & Plan Assessment 76 year old M receiving IV vancomycin for treatment of possible septic arthritis. Pertinent microbiologic data includes: Left knee gram stain is growing staphylococcus species, another sample of the left knee gram statin is showing pin-point growth that is re-incubating; blood cultures are pending. Day # 3 of antimicrobial therapy. Plan Vancomycin * AUC/GABRIELA is the preferred PK/PD target for vancomycin * AUC guided dosing is effective and associated with decreased risk of nephrotoxicity compared to traditional trough targets * Trough level of 17 mcg/mL is predicted to achieve target AUC/GABRIELA of 400-600 mg/L.hr and may be associated with a 13 % risk of nephrotoxicity * Continue dose of 1500 mg IV every 12 hours * Trough level ordered for: 11/21/21 Cefepime * continue with cefepime 2000 mg IV q8h for CrCl > 60 mL/min Pharmacy will continue to follow and will adjust dose/frequency as necessary. Thank you.
--- NOTE | 2021-11-20 16:26 | Hospitalist Progress Note ---
Date of Service November 20, 2021 Assessment & Plan (1) Patellar instability of left knee: Plan: Positive preliminary blood culture for staph species only if you was noted Final cultures is pending Follow-up cultures so far is negative Currently on vancomycin (2) HTN (hypertension): Plan: Fair control (3) GERD (gastroesophageal reflux disease): Plan: Continue famotidin (4) BPH (benign prostatic hyperplasia): Plan: resume tamsulosin Admission and Anticipated Discharge Date Admission Date: November 18, 2021 Subjective To examine the patient she has no pain, no complaint, waiting for finalized blood culture repeat Review of Systems Constitutional: + body aches Eyes: no blind spots Ear, Nose, Mouth, Throat: no ear pain Respiratory: no cough Cardiovascular: no chest pain Gastrointestinal: no abdominal pain Genitourinary: no dysuria Musculoskeletal: no back pain Integumentary: no acne and no rash Neurologic: no gait abnormality Psychiatric: no behavioral changes Endocrine: no fatigue Hematologic / Lymphatic: no easy bleeding Allergy / Immunological: no GI upset with certain foods Physical Exam Physical Exam: Left knee Outer dressings were removed from the patient's left lower extremity. Silverlon ensured are in place and intact. There is no fluctuance or drainage. I did cover the drain site with a sterile 2 x 2 and a Tegaderm before applying the Mediplex dressing over his knee incision. Patient is able to actively extend his knee to 0 degrees and flex to 75 degrees without difficulty. He is able to form a straight leg raise test. He is able to actively dorsi and plantarflex foot without difficulty. He is neurovascularly intact in the left lower extremity. Constitutional: WD/WN, vitals as above Eyes: PERRL, conjunctivae normal, anicteric sclerae ENMT: Mouth: no dentition abnormality Mallampati Class: II Neck: trachea midline, no thyromegaly normal visual inspection Respiratory: normal respiratory effort, lungs clear to auscultation normal respiratory effort Auscultation: lungs clear to auscultation bilaterally Cardiovascular: RRR, no murmur, no edema Rate/Rhythm: regular rate and regular rhythm Gastrointestinal (Abdomen): normal bowel sounds, soft, nontender, no hepatosplenomegaly Musculoskeletal: no cyanosis or clubbing, extremities motor strength 5/5 (Left lower extremity: dressing intacted. hemovac placed.) Skin: no rashes, warm and dry Neurologic: PERRL, EOMI, accommodation nl, no face palsy, no dysarthria Psychiatric: A+Ox3, euthymic affect Lymphatic: no cervical or axillary lymphadenopathy Results & Data Results & Data ([facility]) Vital Signs (Past 12 Hours) Vital Signs Temp Pulse Resp BP Pulse Ox 11/20/21 15:43 37.4 C 78 14 117/66 98 11/20/21 07:17 37.2 C 92 H 16 142/74 H 92 PG Care Time/CCT Total # of Minutes Spent Total Time Spent with Patient: Total time spent is greater than 50% in coordination of care (as documented) at patient's floor/unit and/or counseling patient: Coding Level of Care Code 48160 Inpt Consult Level 2 Diagnoses Patellar instability of left knee M25.362 HTN (hypertension) I10 Hypertension type: essential hypertension GERD (gastroesophageal reflux disease) K21.9 Esophagitis presence: esophagitis presence not specified BPH (benign prostatic hyperplasia) N40.0 (1) HTN (hypertension) Hypertension type: essential hypertension Qualified Code(s): I10 - Essential (primary) hypertension (2) GERD (gastroesophageal reflux disease) Esophagitis presence: esophagitis presence not specified Qualified Code(s): K21.9 - Gastro-esophageal reflux disease without esophagitis
[2021-11-20] MEDS: SENNA 8.6 MG TAB PO SCH (19:54)
[2021-11-21] MEDS: CEFEPIME 2,000 MG in SYRINGE 0 ML IV SCH ×3 (01:35→17:06)
[2021-11-21] MEDS ORDERED: VANCOMYCIN TROUGH ONE (04:30)
[2021-11-21] MEDS: VANCOMYCIN HCL 1,500 MG in SODIUM CHLORIDE 0.9% 500 ML IV SCH (05:37)
[2021-11-21 05:58] LABS: Creatinine Clr Calc Pharmacy 151.3 ml/min; Est GFR (African American) 124.8 ml/min; Est GFR (Non-African American) 107.6 ml/min
[2021-11-21] MEDS: CEROVITE ADV FORMULA TAB PO SCH ×2 (08:30→22:05)
[2021-11-21] MEDS: ASCORBIC ACID 500 MG TAB PO SCH ×2 (08:31→17:06)
[2021-11-21] MEDS: amLODIPine BESYLATE 5 MG TAB PO SCH (08:31)
[2021-11-21] MEDS: DOCUSATE SODIUM 100 MG CAP PO SCH ×2 (08:31→22:04)
[2021-11-21] MEDS: FERROUS GLUCONATE 324 MG TAB PO SCH ×2 (08:31→17:06)
[2021-11-21] MEDS: lisinopril 10 MG TAB PO SCH (08:31)
[2021-11-21] MEDS: ASPIRIN 81 MG ECTAB PO SCH ×2 (08:31→22:05)
[2021-11-21] MEDS: MULTIVITAMIN TAB PO SCH (08:31)
[2021-11-21] MEDS: FAMOTIDINE 20 MG TAB PO SCH ×2 (08:36→22:04)
[2021-11-21] MEDS: PSYLLIUM 58.6% POWDER PACKET PO SCH ×2 (08:37→22:04)
[2021-11-21] MEDS: TAMSULOSIN HCL 0.4 MG CAP PO SCH ×2 (08:37→22:05)
[2021-11-21] MEDS ORDERED: CONSULT PHARMACY STA (11:20)
--- NOTE | 2021-11-21 11:20 | Orthopedic Progress Note ---
Date of Service November 21, 2021 Assessment & Plan (1) Patellar instability of left knee: Plan: POD #3 s/p left knee I&D, poly exchange, Medial retinacular repair and lateral release, doing as well as expected. Regular diet. WBAT with walker OOB to chair. Continue pain control. DVT prophylaxis: TEDs 3 weeks, foot pumps while in hospital, ASA 81 mg BID for 6 weeks. PT/OT. Encouraged bedside exercises. ID consulted and Sensitivities are pending, discussed care via telephone last evening and appreciate their input. Continue IV Vancomycin & Cefepime Pharmacy Consult for Vancomycin dosing Mediplex dressing to be replaced with Silverlon D/C planning. Appreciate Medicine input Admission and Anticipated Discharge Date Admission Date: November 18, 2021 Subjective Doing well. Knee feels stable. Physical Exam Physical Exam: LLE: Incision is clean, dry, intact. Bottom end of the dressing is rolling up. Calf soft. Neurovascularly intact. Able to preform straight leg raise. Results & Data ([facility]) Vital Signs (Past 12 Hours) Vital Signs Temp Pulse Resp BP Pulse Ox 11/21/21 07:22 37.6 C H 82 18 126/79 93 11/20/21 23:36 37.1 C 78 17 137/82 96 Laboratory Results 11/21/21 11/21/21 Range/Units 05:08 05:08 Creatinine 0.49 L (0.6-1.4) mg/dl Est Cr Clr Drug Dosing 151.3 ml/min Est GFR ( Amer) 124.8 ml/min Est GFR (Non-Af Amer) 107.6 ml/min Vancomycin Trough 8.9 L (10-20) mcg/ml Microbiology 11/19/21 19:00 Aerobic Blood Culture - Preliminary Blood No growth in Aerobic bottle after 24 hours. Anaerobic Blood Culture - Preliminary No growth in Anaerobic bottle after 24 hours. 11/19/21 19:00 Aerobic Blood Culture - Preliminary Blood No growth in Aerobic bottle after 24 hours. Anaerobic Blood Culture - Preliminary No growth in Anaerobic bottle after 24 hours. 11/18/21 12:20 Gram Stain - Final Knee,Left Aerobic and Anaerobic Culture - Preliminary Staphylococcus species Staphylococcus species#2
[2021-11-21] MEDS: POLYETHYLENE (MIRALAX) 17 GM PACK PO SCH (12:40)
--- NOTE | 2021-11-21 15:21 | Pharmacy Report ---
Pharmacy Vanc AUC Short Note - Date of Service November 21, 2021 - Assessment & Plan Assessment 76 year old M receiving IV vancomycin for treatment of possible septic arthritis. Pertinent microbiologic data includes: Left knee gram stain is growing staphylococcus species, another sample of the left knee gram statin is showing pin-point growth that is re-incubating; blood cultures are pending. Day # 4 of antimicrobial therapy. Plan Laboratory Tests 11/21/21 05:08 Vancomycin Trough 8.9 L Vancomycin * AUC/GABRIELA is the preferred PK/PD target for vancomycin * AUC guided dosing is effective and associated with decreased risk of nephrotoxicity compared to traditional trough targets * Trough level of 15.0 mcg/mL is predicted to achieve target AUC/GABRIELA of 400-600 mg/L.hr and may be associated with a 10 % risk of nephrotoxicity * Change to 1250mg IV q8h. * Trough level ordered for: 11/22/21 Cefepime * continue with cefepime 2000 mg IV q8h for CrCl > 60 mL/min Pharmacy will continue to follow and will adjust dose/frequency as necessary. Thank you.
[2021-11-21] MEDS: VANCOMYCIN HCL 1,250 MG in SODIUM CHLORIDE 0.9% 250 ML IV SCH (15:49)
--- NOTE | 2021-11-21 18:14 | Hospitalist Progress Note ---
Date of Service November 21, 2021 Assessment & Plan (1) Patellar instability of left knee: Plan: Positive preliminary blood culture for staph species only if you was noted Final cultures is pending Follow-up cultures so far is negative Currently on vancomycin Call lab hopefully tomorrow we will have more specific information (2) HTN (hypertension): Plan: Fair control (3) GERD (gastroesophageal reflux disease): Plan: Continue famotidin (4) BPH (benign prostatic hyperplasia): Plan: resume tamsulosin Admission and Anticipated Discharge Date Admission Date: November 18, 2021 Subjective No complaint Review of Systems Eyes: no discharge and no photophobia Ear, Nose, Mouth, Throat: no ear pain Respiratory: no cough Cardiovascular: no chest pain Gastrointestinal: no abdominal pain Genitourinary: no dysuria Musculoskeletal: no back pain Integumentary: no acne and no rash Neurologic: no gait abnormality Psychiatric: no behavioral changes Endocrine: no fatigue Hematologic / Lymphatic: no easy bleeding Allergy / Immunological: no GI upset with certain foods Physical Exam Constitutional: WD/WN, vitals as above Eyes: PERRL, conjunctivae normal, anicteric sclerae ENMT: Mouth: no dentition abnormality Mallampati Class: II Neck: trachea midline, no thyromegaly normal visual inspection Respiratory: normal respiratory effort, lungs clear to auscultation normal respiratory effort Auscultation: lungs clear to auscultation bilaterally Cardiovascular: RRR, no murmur, no edema Rate/Rhythm: regular rate and regular rhythm Gastrointestinal (Abdomen): normal bowel sounds, soft, nontender, no hepatosplenomegaly Musculoskeletal: no cyanosis or clubbing, extremities motor strength 5/5 (Left lower extremity: dressing intacted. hemovac placed.) Skin: no rashes, warm and dry Neurologic: PERRL, EOMI, accommodation nl, no face palsy, no dysarthria Psychiatric: A+Ox3, euthymic affect Lymphatic: no cervical or axillary lymphadenopathy Results & Data Results & Data ([facility]) Vital Signs (Past 12 Hours) Vital Signs Temp Pulse Resp BP Pulse Ox 11/21/21 14:38 37.3 C 94 H 18 122/74 99 11/21/21 07:22 37.6 C H 82 18 126/79 93 PG Care Time/CCT Total # of Minutes Spent Total Time Spent with Patient: Total time spent is greater than 50% in coordination of care (as documented) at patient's floor/unit and/or counseling patient: Coding Level of Care Code 70370 Subseq Hosp Care Lvl 2 Diagnoses Patellar instability of left knee M25.362 HTN (hypertension) I10 Hypertension type: essential hypertension GERD (gastroesophageal reflux disease) K21.9 Esophagitis presence: esophagitis presence not specified BPH (benign prostatic hyperplasia) N40.0 (1) HTN (hypertension) Hypertension type: essential hypertension Qualified Code(s): I10 - Essential (primary) hypertension (2) GERD (gastroesophageal reflux disease) Esophagitis presence: esophagitis presence not specified Qualified Code(s): K21.9 - Gastro-esophageal reflux disease without esophagitis
[2021-11-21] MEDS: SENNA 8.6 MG TAB PO SCH (22:05)
[2021-11-22] MEDS: CEFEPIME 2,000 MG in SYRINGE 0 ML IV SCH ×3 (00:07→17:51)
[2021-11-22] MEDS: VANCOMYCIN HCL 1,250 MG in SODIUM CHLORIDE 0.9% 250 ML IV SCH ×3 (00:14→16:19)
[2021-11-22 06:56] LABS: Creatinine Clr Calc Pharmacy 137.3 ml/min; Est GFR (African American) 119.9 ml/min; Est GFR (Non-African American) 103.4 ml/min
[2021-11-22] MEDS: CEROVITE ADV FORMULA TAB PO SCH ×2 (08:36→21:34)
[2021-11-22] MEDS: ASPIRIN 81 MG ECTAB PO SCH ×2 (08:36→21:35)
[2021-11-22] MEDS: MULTIVITAMIN TAB PO SCH (08:36)
[2021-11-22] MEDS: DOCUSATE SODIUM 100 MG CAP PO SCH ×2 (08:36→21:35)
[2021-11-22] MEDS: TAMSULOSIN HCL 0.4 MG CAP PO SCH ×2 (08:36→21:35)
[2021-11-22] MEDS: FERROUS GLUCONATE 324 MG TAB PO SCH ×2 (08:36→17:52)
[2021-11-22] MEDS: lisinopril 10 MG TAB PO SCH (08:37)
[2021-11-22] MEDS: PSYLLIUM 58.6% POWDER PACKET PO SCH ×2 (08:38→21:35)
[2021-11-22] MEDS: ASCORBIC ACID 500 MG TAB PO SCH ×2 (08:38→17:52)
[2021-11-22] MEDS: POLYETHYLENE (MIRALAX) 17 GM PACK PO SCH (08:38)
[2021-11-22] MEDS: amLODIPine BESYLATE 5 MG TAB PO SCH (08:38)
[2021-11-22] MEDS: FAMOTIDINE 20 MG TAB PO SCH ×2 (08:43→21:42)
[2021-11-22] MEDS ORDERED: VANCOMYCIN TROUGH ONE (15:30)
--- NOTE | 2021-11-22 17:05 | Pharmacy Report ---
Pharmacy Abx Dose Short Note - Date of Service November 22, 2021 - Assessment & Plan Assessment * 76 year old M receiving IV vancomycin for treatment of possible septic arthritis * Day #5 of antibiotic therapy * L Knee growing staph species, Blood culture show NGTD * POD #4 incision and drainage Plan Vancomycin * AUC/GABRIELA is the preferred PK/PD target for vancomycin * AUC guided dosing is effective and associated with decreased risk of nephrotoxicity compared to traditional trough targets * Trough level of 13.1 mcg/mL is predicted to achieve target AUC/GABRIELA of 400-600 mg/L.hr, however have opted to increase vancomycin to 1500mg IV q8h given bone&joint/septic arthritis indication. * Vancomycin 1500mg IV q8h is estimated to achieve a trough of 16.0 mg/L (AUC ~590 mg/L.hr) and is associated with a 13% risk of nephrotoxicity * Trough level ordered for: 11/24/21 @ 0739 Cefepime * Continue with cefepime 2000 mg IV q8h for CrCl > 60 mL/min Pharmacy will continue to follow and will adjust dose/frequency as necessary. Thank you.
--- NOTE | 2021-11-22 17:20 | Hospitalist Progress Note ---
Date of Service November 22, 2021 Assessment & Plan (1) Patellar instability of left knee: Plan: Positive preliminary blood culture for staph species Final cultures is pending Follow-up cultures so far is negative Currently on vancomycin Call lab hopefully tomorrow we will have more specific information (2) HTN (hypertension): Plan: Fair control (3) GERD (gastroesophageal reflux disease): Plan: Continue famotidin (4) BPH (benign prostatic hyperplasia): Plan: resume tamsulosin Admission and Anticipated Discharge Date Admission Date: November 18, 2021 Subjective No complaint, still the synovial fluid culture is not finalized yet shows few staph not differentiated if it is MRSA or not Review of Systems Constitutional: + body aches Eyes: no discharge and no photophobia Ear, Nose, Mouth, Throat: no ear pain Respiratory: no cough Cardiovascular: no chest pain Gastrointestinal: no abdominal pain Genitourinary: no dysuria Musculoskeletal: no back pain Integumentary: no acne and no rash Neurologic: no gait abnormality Psychiatric: no behavioral changes Endocrine: no fatigue Hematologic / Lymphatic: no easy bleeding Allergy / Immunological: no GI upset with certain foods Physical Exam Physical Exam: Left knee Outer dressings were removed from the patient's left lower extremity. Silverlon ensured are in place and intact. There is no fluctuance or drainage. I did cover the drain site with a sterile 2 x 2 and a Tegaderm before applying the Mediplex dressing over his knee incision. Patient is able to actively extend his knee to 0 degrees and flex to 75 degrees without difficulty. He is able to form a straight leg raise test. He is able to actively dorsi and plantarflex foot without difficulty. He is neurovascularly intact in the left lower extremity. Constitutional: WD/WN, vitals as above Eyes: PERRL, conjunctivae normal, anicteric sclerae ENMT: Mouth: no dentition abnormality Mallampati Class: II Neck: trachea midline, no thyromegaly normal visual inspection Respiratory: normal respiratory effort, lungs clear to auscultation normal respiratory effort Auscultation: lungs clear to auscultation bilaterally Cardiovascular: RRR, no murmur, no edema Rate/Rhythm: regular rate and regular rhythm Gastrointestinal (Abdomen): normal bowel sounds, soft, nontender, no hepatosplenomegaly Musculoskeletal: no cyanosis or clubbing, extremities motor strength 5/5 (Left lower extremity: dressing intacted. hemovac placed.) Skin: no rashes, warm and dry Neurologic: PERRL, EOMI, accommodation nl, no face palsy, no dysarthria Psychiatric: A+Ox3, euthymic affect Lymphatic: no cervical or axillary lymphadenopathy Results & Data Results & Data ([facility]) Vital Signs (Past 12 Hours) Vital Signs Temp Pulse Pulse Resp BP Pulse Ox 11/22/21 16:00 37 C 76 18 122/71 100 11/22/21 07:13 37.2 C 82 18 147/81 H 92 PG Care Time/CCT Total # of Minutes Spent Total Time Spent with Patient: Total time spent is greater than 50% in coordination of care (as documented) at patient's floor/unit and/or counseling patient: Coding Level of Care Code 36141 Subseq Hosp Care Lvl 2 Diagnoses Patellar instability of left knee M25.362 HTN (hypertension) I10 Hypertension type: essential hypertension GERD (gastroesophageal reflux disease) K21.9 Esophagitis presence: esophagitis presence not specified BPH (benign prostatic hyperplasia) N40.0 (1) HTN (hypertension) Hypertension type: essential hypertension Qualified Code(s): I10 - Essential (primary) hypertension (2) GERD (gastroesophageal reflux disease) Esophagitis presence: esophagitis presence not specified Qualified Code(s): K21.9 - Gastro-esophageal reflux disease without esophagitis
[2021-11-22] MEDS: SENNA 8.6 MG TAB PO SCH (21:35)
--- NOTE | 2021-11-22 23:05 | Orthopedic Progress Note ---
Date of Service November 22, 2021 Assessment & Plan (1) Patellar instability of left knee: Plan: POD #4 s/p left knee I&D, poly exchange, Medial retinacular repair and lateral release, doing as well as expected. Regular diet. WBAT with walker & Lateral stabilizing J knee brace OOB to chair. Continue pain control. DVT prophylaxis: TEDs 3 weeks, foot pumps while in hospital, ASA 81 mg BID for 6 weeks. PT/OT. Encouraged bedside exercises. ID consulted and Sensitivities are pending, discussed care via telephone last evening and appreciate their input. Continue IV Vancomycin & Cefepime Pharmacy Consult for Vancomycin dosing Silverlon in place D/C planning. Appreciate Medicine input Admission and Anticipated Discharge Date Admission Date: November 18, 2021 Subjective Feeling good. Physical Exam Physical Exam: LLE: Silverlon with old dry blood. Neurovascularly intact. calf soft and non-tender. Results & Data ([facility]) Vital Signs (Past 12 Hours) Vital Signs Temp Pulse Pulse Resp BP Pulse Ox 11/22/21 22:57 37.1 C 78 18 138/77 95 11/22/21 16:00 37 C 76 18 122/71 100 Laboratory Results 11/22/21 11/22/21 Range/Units 15:15 06:08 Creatinine 0.54 L (0.6-1.4) mg/dl Est Cr Clr Drug Dosing 137.3 ml/min Est GFR ( Amer) 119.9 ml/min Est GFR (Non-Af Amer) 103.4 ml/min Vancomycin Trough 13.1 (10-20) mcg/ml Microbiology 11/18/21 12:20 Gram Stain - Final Knee,Left Aerobic and Anaerobic Culture - Preliminary Staphylococcus species Coag negative Staphylococcus 11/18/21 12:20 Gram Stain - Final Knee,Left Aerobic and Anaerobic Culture - Preliminary Staphylococcus species 11/19/21 19:00 Aerobic Blood Culture - Preliminary Blood No growth in Aerobic bottle after 48 hours. Anaerobic Blood Culture - Preliminary No growth in Anaerobic bottle after 48 hours. 11/19/21 19:00 Aerobic Blood Culture - Preliminary Blood No growth in Aerobic bottle after 48 hours. Anaerobic Blood Culture - Preliminary No growth in Anaerobic bottle after 48 hours.
[2021-11-23] MEDS: VANCOMYCIN HCL 1,500 MG in SODIUM CHLORIDE 0.9% 500 ML IV SCH ×3 (00:33→16:37)
[2021-11-23] MEDS: CEFEPIME 2,000 MG in SYRINGE 0 ML IV SCH ×2 (00:33→08:35)
[2021-11-23 06:06] LABS: Creatinine Clr Calc Pharmacy 157.8 ml/min; Est GFR (African American) 126.9 ml/min; Est GFR (Non-African American) 109.5 ml/min
[2021-11-23] MEDS: POLYETHYLENE (MIRALAX) 17 GM PACK PO SCH (08:35)
[2021-11-23] MEDS: TAMSULOSIN HCL 0.4 MG CAP PO SCH ×2 (08:36→21:12)
[2021-11-23] MEDS: ASCORBIC ACID 500 MG TAB PO SCH ×2 (08:36→17:29)
[2021-11-23] MEDS: PSYLLIUM 58.6% POWDER PACKET PO SCH ×2 (08:36→21:12)
[2021-11-23] MEDS: CEROVITE ADV FORMULA TAB PO SCH ×2 (08:36→21:12)
[2021-11-23] MEDS: FERROUS GLUCONATE 324 MG TAB PO SCH ×2 (08:36→17:29)
[2021-11-23] MEDS: lisinopril 10 MG TAB PO SCH (08:36)
[2021-11-23] MEDS: DOCUSATE SODIUM 100 MG CAP PO SCH ×2 (08:36→21:11)
[2021-11-23] MEDS: MULTIVITAMIN TAB PO SCH (08:36)
[2021-11-23] MEDS: amLODIPine BESYLATE 5 MG TAB PO SCH (08:36)
[2021-11-23] MEDS: ASPIRIN 81 MG ECTAB PO SCH ×2 (08:36→21:11)
[2021-11-23] MEDS: FAMOTIDINE 20 MG TAB PO SCH ×2 (08:44→21:20)
--- NOTE | 2021-11-23 10:07 | Orthopedic Progress Note ---
Date of Service November 23, 2021 Assessment & Plan (1) Patellar instability of left knee: Plan: POD #5 s/p left knee I&D, poly exchange, Medial retinacular repair and lateral release, doing as well as expected. Regular diet. WBAT with walker & Lateral stabilizing J knee brace OOB to chair. Continue pain control. DVT prophylaxis: TEDs 3 weeks, foot pumps while in hospital, ASA 81 mg BID for 6 weeks. PT/OT. Encouraged bedside exercises. ID consulted and Sensitivities are back, awaiting Abx selection by ID and appreciate their input. If continuing IV Vancomycin &/ Cefepime will obtain PICC Line. Obtained consent for PICC Line. Pharmacy Consult for Vancomycin dosing Silverlon in re-placed D/C planning. Home nursing and PT. Appreciate Medicine input Plan d/c later today if all arrangements for home can be made. Admission and Anticipated Discharge Date Admission Date: November 18, 2021 Subjective Feeling good. Physical Exam Physical Exam: LLE: Silverlon with old dry blood. Neurovascularly intact. calf soft and non-tender. Results & Data ([facility]) Vital Signs (Past 12 Hours) Vital Signs Temp Pulse Pulse Resp BP BP Pulse Ox 11/23/21 07:53 37.1 C 86 17 146/80 H 97 11/22/21 22:57 37.1 C 78 18 138/77 95 Laboratory Results 11/23/21 11/22/21 Range/Units 05:36 15:15 Creatinine 0.47 L (0.6-1.4) mg/dl Est Cr Clr Drug Dosing 157.8 ml/min Est GFR ( Amer) 126.9 ml/min Est GFR (Non-Af Amer) 109.5 ml/min Vancomycin Trough 13.1 (10-20) mcg/ml Microbiology 11/18/21 12:20 Gram Stain - Final Knee,Left Aerobic and Anaerobic Culture - Final Coag negative Staphylococcus 11/18/21 12:20 Gram Stain - Final Knee,Left Aerobic and Anaerobic Culture - Final Coag negative Staphylococcus#2 Coag negative Staphylococcus [address] [address] / Director: Duncan Bradshaw M.D. Clinical Laboratory Report Name: SUNG SWANSON Acct: [id number] Status: ADM IN : 1945 [facility] [place] Date: 11/18/21 Age: 76 Sex: M Dis Date: Loc: Medical/Surgical/Ortho [facility]/Bed: [facility] Spec: [id number] Collected: 11/18/21 Received: 11/18/[address]: Chong Gutierrez MD Source: Knee,Left OV Order: Ordered: Aer/Nieves Cult/Sm Comments: SWAB Procedure Result Verified Site Gram Stain Final 11/18/21-1325 Gram Stain Result Moderate WBCs Seen No Organisms Seen Aero/Nieves Cult Final 11/23/21-0856 Organism 1 Coag negative Staphylococcus#2 Quantity Few Sens No Sensitivities to Follow No Anaerobes Isolated No Anaerobes Isolated Organism 2 Coag negative Staphylococcus Quantity Rare Sens Sensitivities to Follow Identification and susceptibility testing have confirmed the two organisms previously reported are the same organism. No susceptibility results will be generated on the second isolate. [employer] M.I.C. --- --------- Clindamycin R >4 Daptomycin S <=0.5 Erythromycin S <=0.5 Oxacillin S <=0.25 Tetracycline S <=4 Trimeth/Sulfa S <=0.5/9.5 Vancomycin S 1 S = SENSITIVE I = INTERMEDIATE R = RESISTANT Blood Cx -
[2021-11-23] MEDS ORDERED: ceFAZolin 2000MG 2,000 MG/15 ML SYR IV SCH (14:15)
--- NOTE | 2021-11-23 17:58 | Hospitalist Progress Note ---
Date of Service November 23, 2021 Assessment & Plan (1) Patellar instability of left knee: Plan: Synovial fluid positive culture for staph epidermidis ID decided to treat staph epidermidis for 4 to 6 weeks with cefazolin 2 g every 8 hours plus rifampin Follow-up cultures are negative Started on cefazolin (2) HTN (hypertension): Plan: Fair control (3) GERD (gastroesophageal reflux disease): Plan: Continue famotidin (4) BPH (benign prostatic hyperplasia): Plan: resume tamsulosin Admission and Anticipated Discharge Date Admission Date: November 18, 2021 Subjective Synovial fluid culture positive for staph epidermis, as per ID recommendation patient will be discharged on cefazolin 2 g every 8 hours will 4 to 6 weeks plus rifampin capsule Review of Systems Constitutional: + body aches Eyes: no discharge and no photophobia Ear, Nose, Mouth, Throat: no ear pain Respiratory: no cough Cardiovascular: no chest pain Gastrointestinal: no abdominal pain Genitourinary: no dysuria Musculoskeletal: no back pain Integumentary: no acne and no rash Neurologic: no gait abnormality Psychiatric: no behavioral changes Endocrine: no fatigue Hematologic / Lymphatic: no easy bleeding Allergy / Immunological: no GI upset with certain foods Physical Exam Constitutional: WD/WN, vitals as above Eyes: PERRL, conjunctivae normal, anicteric sclerae ENMT: Mouth: no dentition abnormality Mallampati Class: II Neck: trachea midline, no thyromegaly normal visual inspection Respiratory: normal respiratory effort, lungs clear to auscultation normal respiratory effort Auscultation: lungs clear to auscultation bilaterally Cardiovascular: RRR, no murmur, no edema Rate/Rhythm: regular rate and regular rhythm Gastrointestinal (Abdomen): normal bowel sounds, soft, nontender, no hepatosplenomegaly Musculoskeletal: no cyanosis or clubbing, extremities motor strength 5/5 (Left lower extremity: dressing intacted. hemovac placed.) Skin: no rashes, warm and dry Neurologic: PERRL, EOMI, accommodation nl, no face palsy, no dysarthria Psychiatric: A+Ox3, euthymic affect Lymphatic: no cervical or axillary lymphadenopathy Results & Data Results & Data ([facility]) Vital Signs (Past 12 Hours) Vital Signs Temp Pulse Pulse Resp BP BP Pulse Ox 11/23/21 15:44 36.5 C 86 18 148/84 H 98 11/23/21 11:47 36.9 C 80 17 134/78 99 11/23/21 07:53 37.1 C 86 17 146/80 H 97 PG Care Time/CCT Total # of Minutes Spent Total Time Spent with Patient: Total time spent is greater than 50% in coordination of care (as documented) at patient's floor/unit and/or counseling patient: Coding Level of Care Code 73678 Subseq Hosp Care Lvl 2 Diagnoses Patellar instability of left knee M25.362 HTN (hypertension) I10 Hypertension type: essential hypertension GERD (gastroesophageal reflux disease) K21.9 Esophagitis presence: esophagitis presence not specified BPH (benign prostatic hyperplasia) N40.0 (1) HTN (hypertension) Hypertension type: essential hypertension Qualified Code(s): I10 - Essential (primary) hypertension (2) GERD (gastroesophageal reflux disease) Esophagitis presence: esophagitis presence not specified Qualified Code(s): K21.9 - Gastro-esophageal reflux disease without esophagitis
[2021-11-23] MEDS: ceFAZolin 2000MG 2,000 MG/15 ML SYR IV SCH (18:22)
[2021-11-23] MEDS: SENNA 8.6 MG TAB PO SCH (21:12)
[2021-11-24] MEDS: ceFAZolin 2000MG 2,000 MG/15 ML SYR IV SCH ×2 (00:58→07:54)
[2021-11-24] MEDS ORDERED: VANCOMYCIN TROUGH ONE (07:30)
[2021-11-24] MEDS: DOCUSATE SODIUM 100 MG CAP PO SCH (07:49)
[2021-11-24] MEDS: lisinopril 10 MG TAB PO SCH (07:49)
[2021-11-24] MEDS: MULTIVITAMIN TAB PO SCH (07:49)
[2021-11-24] MEDS: FERROUS GLUCONATE 324 MG TAB PO SCH (07:49)
[2021-11-24] MEDS: ASCORBIC ACID 500 MG TAB PO SCH (07:49)
[2021-11-24] MEDS: CEROVITE ADV FORMULA TAB PO SCH (07:49)
[2021-11-24] MEDS: POLYETHYLENE (MIRALAX) 17 GM PACK PO SCH (07:49)
[2021-11-24] MEDS: TAMSULOSIN HCL 0.4 MG CAP PO SCH (07:49)
[2021-11-24] MEDS: amLODIPine BESYLATE 5 MG TAB PO SCH (07:50)
[2021-11-24] MEDS: PSYLLIUM 58.6% POWDER PACKET PO SCH (07:50)
[2021-11-24] MEDS: ASPIRIN 81 MG ECTAB PO SCH (07:50)
[2021-11-24] MEDS: FAMOTIDINE 20 MG TAB PO SCH (07:54)
--- NOTE | 2021-11-24 11:35 | Orthopedic Progress Note ---
Date of Service November 24, 2021 Assessment & Plan (1) Patellar instability of left knee: Plan: POD #6 s/p left knee I&D, poly exchange, Medial retinacular repair and lateral release, doing as well as expected. Regular diet. WBAT with walker & Lateral stabilizing J knee brace OOB to chair. Continue pain control. DVT prophylaxis: TEDs 3 weeks, foot pumps while in hospital, ASA 81 mg BID for 6 weeks. PT/OT. Encouraged bedside exercises. ID consulted and appreciate their input. PICC Line placed. Ancef 2g q8h x 6 weeks & Rifampin 300mg PA BID 6 months. After 6 weeks of Ancef will switch to oral Keflex min 6 months possibly indefinite. Silverlon in placed D/C planning. Home nursing and PT. Appreciate Medicine input Plan d/c later today if all arrangements for home are made. Admission and Anticipated Discharge Date Admission Date: November 18, 2021 Subjective Feeling better everyday. Physical Exam Physical Exam: LLE: Silverlon with old dry blood. Neurovascularly intact. calf soft and non-tender. Results & Data ([facility]) Vital Signs (Past 12 Hours) Vital Signs Temp Pulse Pulse Pulse Resp BP BP 11/24/21 11:27 36.7 C 80 86 81 16 159/83 H 146/80 H 11/24/21 07:10 36.7 C 81 16 159/83 H 11/23/21 23:44 37.3 C 86 16 156/83 H Pulse Ox 11/24/21 11:27 96 11/24/21 07:10 96 11/23/21 23:44 95
--- NOTE | 2021-11-24 13:57 | Discharge Summary ---
Date of Service November 24, 2021 Admission HPI Per Admitting Provider Pt was seen and examined bedside. POD #7 s/p total knee arthroplasty. Pt was admitted for IV abx. Knee cultures growing coagulation negative staph. ID consulted who gave abx recs. Pt set up with PICC. Vitals are stable. Labs stable. X-rays show normal post operative changed. Pt reports they are doing well and pain is controlled. They are tolerating PO intake and voiding adequate amounts. Working well with PT/OT. Pt denies F/C, N/V/D, SOB, CP. Pt deemed medically stable and ready for discharge. Admission Exam Per Admitting Provider General: Pt laying in hospital bed AA&O, in NAD, calm and cooperative during exam Lower Extremity: Dressing in tact and not saturated. Incisions clean, dry and with minimal drainage and no surrounding erythema, warmth or purulent drainage. Pt has full ROM of ankle and all 5 digits. Pt has 5/5 strength with resisted DF/PF. SLR in tact. Calf supple and non tender. NVI with sensation to light touch distally and good distal pulses present. Lower extremity noted to have good color and temperature with no signs of vascular or lymphatic insufficiency. Principal Diagnosis left knee instability and infection s/p left total knee revision Discharge Data Allergies Allergy/AdvReac Type Severity Reaction Status Date / Time ketoprofen AdvReac Mild GI upset Verified 11/18/21 08:36 meloxicam AdvReac Mild GI upset Verified 11/18/21 08:36 Consultations 11/18/21 14:16 Consult Hospitalist Routine Consult Infectious Diseases Routine Procedures Performed Operation Date: 11/18/21 10:20 Actual Procedures p Incision and drainage of left total knee, polyexchange, retinacular repair, lateral release.(Left) - Chong Gutierrez MD Ordered Studies 11/18/21 05:00 US - OR guided needle placemen Routine Hospital Course (1) Patellar instability of left knee: POD #7 s/p left knee I&D, poly exchange, Medial retinacular repair and lateral release, doing as well as expected. Regular diet. WBAT with walker & Lateral stabilizing J knee brace OOB to chair. Continue pain control. DVT prophylaxis: TEDs 3 weeks, foot pumps while in hospital, ASA 81 mg BID for 6 weeks. PT/OT. Encouraged bedside exercises. ID consulted and appreciate their input. PICC Line placed. Ancef 2g q8h x 6 weeks & Rifampin 300mg PA BID 6 months. After 6 weeks of Ancef will switch to oral Keflex min 6 months possibly indefinite. Silverlon in place D/C planning. Home nursing and PT. Appreciate Medicine input - pt deemed stable for dc Total Time Total Time Spent Total Time Spent (In Minutes): 20 minutes Discharge Plan Discharge Items Patient Disposition: Home - Home Health Services Reason For Visit: Unspecified Internal Derangement of Left Knee Discharge Diagnosis: Same as above + Infected prosthetic joint Activity: Per Instructions section Bathing: Keep incision dry Non-emergency contact: Surgeon Call non-emergency contact if: your symptoms worsen, your pain is not controlled, your pain is worsening, your temperature is above 101, your wound has increased redness and your wound has increased drainage Follow-up/Referrals: Skyler Rodriguez MD [Primary Care Provider] - Rodger Phan PA-C [Physician Face Painter] - 11/27/21 3:30 pm Ricardo Gonzalez DO [Physician] - (As instructed) Iwona Yeager PA-C [Physician Face Painter] - 12/02/21 11:15 am Diet: Regular Addtl Attending Provider Instructions: New Medicine: * You will likely be taking one or more of these medications: 1. ASA - 81 twice daily x 6 weeks after surgery. 2. Oxycodone - take 1-2 tablets every 4-6 hours as needed 3. Tylenol - take 1-2 tablets every 8 hours as needed for pain. 4. Iron 325mg twice daily x 2 weeks 5. Vitamin C 500mg twice daily x 2 weeks. - Take iron and vitamin C together. * The most common side effects of pain medicine and iron are nausea and constipation. If nausea or constipation is too much of a problem or if you have any questions about your new medicines or doses, call [facility] at . We will try to help you manage these issues. "VERY IMPORTANT TO READ AND REVIEW" Blood Clots and Blood Thinning Medicine: * You are given Aspirin 81 mg twice daily x 6 weeks after surgery. Physical Therapy: * Do your physical therapy at home. These are the exercises you learned while in the hospital (quad sets, leg raises, calf pumps, gluteal squeezes, knee bending, and heel props.) You should do these exercises 3-4 times per day. * You will either go to inpatient rehab ([facility]), home with Home Therapy and nursing or home with outpatient rehab. You should do rehab with the therapist 2-3 times per week. You should do therapy on your own daily. * You may bear full weight on your leg with crutches or walker unless otherwise advised. Home Exercise: * You were shown a series of exercises (heel props, heel slides, etc.) in the hospital. Do these exercises three to four times each day including the exercises you were shown in physical therapy. Walking: * You may be up for short periods of time. Standing and walking for 1-2 hours at a time is usually okay. You should not stand or walk for excessive periods of time as this may Cause increased pain and swelling. SELF CARE INSTRUCTIONS AFTER TOTAL KNEE REPLACEMENT A. You may need to continue a physical therapy program after discharge from the hospital. There are several options available to you. Your doctor will assist you in selecting the best one for you. 1. An out-patient facility 2 to 3 times a week for therapy or home therapy. 2. Continue working on all exercises taught to you in the hospital. Your goals should be to increase bending of your knee to 90 degrees and beyond and to fully straighten your knee. B. Your therapist will notify you when you are able to progress from a walker to a cane. C. Wear TEDS as much as possible.~ They may be removed at night for laundering. D. Do not place a pillow behind your knee when resting. A pillow at your ankle is okay. E. Ice your knee 15-20 minutes every 2-3 hours and elevate it above the level of your heart. F. You may shower on the fourth day after surgery using regular soap and water. Do not submerge until the wound is completely healed (approximately 2 weeks). Until the fourth day after surgery, cover the incision/bandage with a bag or plastic wrap. G. Anyone who is touching your surgical incision area should wash their hands and wear gloves. H. Keep your incision covered with gauze pads under the ROBI hose until it is dry. I. Keep Mepilex on at all times until your follow up. VERY IMPORTANT TO READ AND REVIEW A. YOU WILL BE GIVEN AN ORDER AT DISCHARGE FOR weekly CBC, ESR and CRP while on IV antiobiotics. B. There are a few signs you need to watch for after you are home. Call [facility] if you notice any of the followin. Increased severe knee pain. Some pain is expected especially when you exercise. 2. Increased swelling in your leg or knee; pain or swelling of the calf muscle in either lower leg. 3. Any fluid drainage from the incision. 4. Shortness of breath or chest pain. 5. Numbness and tingling in the surgical extremity C. Please call [facility] at if you have any concerns or questions about your operation or recovery. The doctor or his nurse will return your call promptly. D. Do not have any elective dental work or other elective procedures done for 6 weeks after your knee replacement. When you have any invasive procedure (dental cleaning, extraction, colonoscopy etc) performed, you will need to take antibiotics to prevent infection from developing in your artificial joint. Tell your other health care providers you have an artificial joint. My office will supply you with further information and the antibiotics. Call your doctor if: * Temperature above 101 degrees F. * Pain not relieved by pain medicine ordered. * Increased drainage or redness from incision. * Notify your doctor with any questions or concerns. Follow-up Visit: * You will follow-up with [facility] 7-10 days after surgery. The office number is . * Please follow up with Primary Care physician within 7-10 days upon discharge for medical management and monitoring of blood pressure. The anti-biotic, Rifampin, that you will be taking can decrease the effectiveness of calcium- channel blockers, including Amlodipine. In order to ensure your Amlodipine is working properly for you and your blood pressure in controlled, we highly recommend outpatient monitoring of your blood pressure and following up with your PCP for further management, should any medications need to be adjusted. * Please follow up with Infectious Disease Avoid all tobacco products. If you need help to stop smoking, call [place] QUIT[facility] at . This is a free call. Pending Studies at Discharge: No Stand-Alone Forms: [facility], Smoking Cessation Medications and DC Order Prescriptions: New aspirin 81 mg Tablet,Delayed Release (Dr/Ec) 81 mg PO BID 35 Days Qty: 70 RF: 0 ascorbic acid (vitamin C) [Vitamin C] 500 mg Tablet 500 mg PO BIDM 14 Days Qty: 28 RF: 0 oxycodone 5 mg Tablet 5 - 10 mg PO Q6H PRN (Reason: post op total knee revision) 5 Days Qty: 18 RF: 0 ferrous gluconate 324 mg (38 mg iron) Tablet 324 mg PO BIDM 14 Days Qty: 28 RF: 0 rifampin 300 mg capsule 300 mg PO Q12H 180 Days Qty: 360 RF: 0 cefazolin 1 gram recon soln 2 g IV Q8H 42 Days Qty: 25 RF: 0 oxycodone 5 mg tablet 5 mg PO Q6H PRN (Reason: pain) Qty: 24 RF: 0 Continued diclofenac sodium [Voltaren] 1 % gel 4 g topical QID PRN (Reason: Pain) Qty: 100 RF: 3 famotidine [Pepcid] 40 mg tablet 40 mg PO .COMPLEX Qty: 135 RF: 3 celecoxib [Celebrex] 100 mg capsule 100 mg PO BID Qty: 60 RF: 2 Centrum Silver Men 300-600-300 mcg tablet 1 tab PO BID RF: 0 tamsulosin 0.4 mg capsule 0.4 mg PO BID RF: 0 lisinopril 30 mg tablet 30 mg PO QAM Qty: 90 RF: 3 polyethylene glycol 3350 [Miralax] 17 gram/dose powder 17 gm PO DAILY PRN (Reason: Constipation) RF: 0 melatonin 3 mg capsule 3 mg PO HS PRN (Reason: Sleep) RF: 0 Lipo-Flavonoid Plus 200-100 mg Tablet 2 tab PO BID RF: 0 Metamucil 3.4 gram/5.4 gram Powder 1 tbsp PO BID RF: 0 acetaminophen 500 mg Tablet 1,000 mg PO Q8 PRN (Reason: pain or fever) Qty: 60 RF: 0 amlodipine 5 mg tablet 5 mg PO QAM RF: 0 Discharge Orders: Discharge Order (Routine); Ordered 11/24/21 Ordered By: Iwona Yeager Admission Data Admit Date/Time: 11/18/21 14:13 Attending Provider: Chong Gutierrez Admit Provider: Chong Gutierrez Primary Care Provider: Pro,Skyler W. Other Providers: Keith Ramos ; Eduard Alvarado ; Elbert Lizarraga I. ; Nael Vo II ; Jaja Sanchez ; Heri Vasquez ; Ricardo Gonzalez ; Minh Nicolas ; Esther Posada ; Pawan Lang ; Ricardo Erickson ; Ernesto Rashid ; Aquiles Roman ; Ralf Orozco ; Jacob Narvaez ; Ashleigh Mai ; Jen Jamison ; Rahul Glass ; Letitia Lizarraga ; Claude Pierce ; Grayson Mosley ; Janet Britt ; Beryl García ; Emmanuel Smith ; Esther Rizo ; Giovanni Johnson ; Mu Feldman ; Drew Wilson ; Pawan Li ; Aurea Kumar ; Shawanda Dang ; Abraham Devi ; Lakshmi Murguia ; Duncan Chatterjee ; Jordan Bettencourt ; Kinga Gan ; Jonathan Salcedo ; Dillon Parr ; [facility],Home Healthcare Other Interventions: Discharge Summary Assessment (RN) Last Done: 11/24/21 11:27
--- NOTE | 2021-12-01 12:58 | Coding Query ---
To promote full compliance with coding requirements relating to patient care, provider participation is requested in all cases of daycare teacher uncertainty. Please assist us with the question(s) below: Coding Question(s): The diagnosis below was documented in Dr. Devi's Progress Note on 11/19, then subsequently fell off all further documentation. Please indicate if it is still a possible diagnosis or ruled out. 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 Devi's PN on 11/19) ( ) Diagnosed and POA ( ) Diagnosed and not POA ( ) Ruled out ( X ) Other (please specify) confirmed on Cultures MTDD
--- NOTE | 2021-12-01 13:02 | Coding Query ---
DEBRIDEMENT DOCUMENTATION The Operative Report on 11/18/21 includes the following documentation regarding debridement - "The poly was removed in the standard fashion. After irrigating the knee with 3 L normal saline the 9 mm poly was replaced. After the first FiberWire stitch was placed to repair the retinaculum pathology called into the room notifying the OR of significant inflammatory cells and 30-40 Neutrophils per hpf. At that point the FiberWire was removed. Another 1 L of Normal saline was used to irrigate and debrided the soft tissues with Versajet.". To promote full compliance with coding requirements relating to patient care, physician participation is requested in all cases of wharf tally clerk uncertainty. Please assist us with the question(s) below: Please place an X in the parenthesis (x). If other, please document the finding: Type of Debridement: ( ) Excisional Debridement- Cutting away necrotic, devitalized tissue or slough to the level of viable tissue using a sharp instrument (i.e. scalpel, scissors, etc.) (x ) Non Excisional Debridement- The removal of necrotic, devitalized tissue or slough by means of scraping, mechanical brushing, flushing, or washing (i.e. irrigation,whirlpool);minor removal of loose fragments. ( x) Other (please specify):Versajet is a high power irrigation used to scrape away devitalized tissue and flushes and washes the area at the same time. Depth of Debridement: ( ) Skin ( ) Skin and Subcutaneous Tissue ( X) Skin, Subcutaneous Tissue and Muscle ( ) Skin, Subcutaneous Tissue, Muscle and Bone ( ) Other (please specify): Thank you Emily OTT
== END 2021-11-24 13:37 | disposition home health service (06) | DRG 488 ==
LOC: ASU 07:44 → 3E 14:13

== ENCOUNTER 2025-07-12 11:58 | Inpatient (IN) ==
[2025-07-12] MEDS: SODIUM CHLORIDE 0.9% 1,000 ML IV SCH ×2 (13:14→20:07)
[2025-07-12 13:29] LABS: Hematocrit (blood only) 39.8 % (42.0-52.0); Hemoglobin 14.4 g/dL (14.0-18.0); Mean Corpuscular Hemoglobin 32.4 pg (25.0-34.0); Mean Corpuscular Volume 89.4 fL (80.0-100.0); Platelet Count 83 K/uL (130-400); RDW Standard Deviation 42.8 fL (36.4-46.3); Red Blood Count 4.45 M/uL (4.70-6.10); White Blood Count 18.04 K/ul (4.8-10.8)
[2025-07-12 13:46] LABS: Alanine Aminotransferase 13.0 U/L (7-52); Albumin Globulin Ratio 1.4 (0.9-2); Albumin Level 3.8 gm/dl (3.4-5.0); Alkaline Phosphatase 74.0 U/L (34-104); Anion Gap 8.0 (3-11); Bilirubin,Total 1.1 mg/dl (0.2-1.0); Blood Urea Nitrogen 11.0 mg/dl (6-23); Calcium 9.2 mg/dl (8.6-10.3); Carbon Dioxide 25.0 mmol/L (21-32); Chloride 100.0 mmol/L (98-107); Creatinine Clr Calc Pharmacy 124.3 ml/min; Globulin 2.8 gm/dl (2.5-4.0); Glucose 117.0 mg/dl (70-99(Fasting)); Magnesium 1.9 mg/dl (1.7-2.4); Potassium 3.7 mmol/L (3.5-5.1); Sodium 133.0 mmol/L (136-145); Total Protein 6.6 gm/dl (6.0-8.3)
[2025-07-12 14:01] LABS: Immature Granulocytes # (auto) 0.61 K/uL (0.01-0.20); Immature Granulocytes % (auto) 3.4 %
[2025-07-12] MEDS: OPTIRAY 320 100ml IV ONE (14:09)
[2025-07-12 14:19] LABS: Appearance Urine Clear (Clear); Bacteria Urine Automated 4+ (None Seen); Epithelial Cell Urine Auto 0-2 /hpf (0-2); Glucose Urine UA Negative (Negative); RBC Urine Automated 0-2 /hpf (0-2); WBC Urine Automated >50 /hpf (0-5)
[2025-07-12 14:22] LABS: Cast Urine Automated 0-2 /lpf (0-2)
--- NOTE | 2025-07-12 14:41 | CT Scan Report ---
CT SCAN OF THE ABDOMEN AND PELVIS WITH IV CONTRAST CLINICAL HISTORY: Back pain. Urinary tract infection. COMPARISON STUDY: Abdominal series September 22, 2018. TECHNIQUE: Following the IV administration of 94 cc of Optiray 320, CT scan of the abdomen and pelvi s is performed from the lung bases to the proximal femora. Images are reviewed in the axial, sagittal , and coronal planes. IV contrast was administered without complication. A dose lowering technique wa s utilized adhering to the principles of ALARA. CT DOSE: 1348.15 mGy.cm FINDINGS: Visualized lung bases are unremarkable. There is no pneumatosis, free air or portal venous gas. A few small suspected hepatic cysts are present. There is no biliary or pancreatic ductal dilata tion. Spleen, adrenal glands and pancreas are unremarkable. There is no evidence for a bowel obstruct ion. There is colonic diverticulosis without evidence for acute diverticulitis. The prostate is enlar ged, measuring 6.1 cm in transverse diameter. There is adjacent stranding, including perirectal stran ding. Note is made of a rim-enhancing abnormality within the right peripheral zone of the prostate wh ich measures 3.1 x 1.9 cm. There is a rim-enhancing abnormality within the left peripheral zone of th e prostate which measures 2.6 x 2.6 cm an additional smaller 2.3 x 1.4 cm rim enhancing focus within the left apex of the prostate. There is mild bladder wall thickening. There is also prominent bilater al ureteral enhancement. Nephrograms are symmetric. There is bilateral perinephric stranding. There i s no hydronephrosis. No urinary calculi. Moderate multilevel degenerative disc disease and facet arth rosis within the lumbar spine is present. Central canal and neural foramen are suboptimally assessed given CT technique. IMPRESSION: 1. Bladder wall thickening which could be correlated with urinalysis. This favors cystitis. Possible bilateral pyelitis without evidence for pyelonephritis. No renal abscess. No hydronephrosis. 2. Enlarged prostate which contains three rim-enhancing hypodense foci which are suspicious for multi focal prostate abscesses which measure up to 3.1 x 1.9 cm. Adjacent stranding. 3. No bowel obstruction. No bowel wall thickening. ACT 112: Negative or not required by law. Electronically signed by: Antonio Nguyen M.D. 07/12/2025 2:39 PM
[2025-07-12] MEDS: cefTRIAXone SODIUM 2,000 MG/50 ML BAG IV STA (15:11)
--- NOTE | 2025-07-12 15:30 | Emergency Department Note ---
Impression & Plan Abscess of prostate, Thrombocytopenia, Anemia ED Provider Note ED Provider Note NAME: SUNG SWANSON AGE:80 SEX: Male : 1945 ARRIVES VIA: Private vehicle INFORMANT: Patient ED PROVIDER(s): Leena Hunt DO CHIEF COMPLAINT: Referred by PCP due to concern for UTI HPI: This is a 80-year-old male who presents to the emergency department after he was referred here by his PCP due to concern for urinary symptoms and finding of a urinary tract infection in the office. Patient states he first began having symptoms on Tuesday noting urgency and frequency. He denies discoloration or odor to his urine. He denies any history of urinary tract infections. He does have a history of BPH and does take medication daily. He states Tuesday he did develop a fever of 101 degrees, and did notice chills. He did not have any further fevers or chills after that. He states had a decreased appetite Tuesday however it seemed to return to normal yesterday and today. He states he is drinking plenty of water and staying hydrated. He does still have the urinary symptoms. He did have some increased low back pain yesterday as well. He denies any abdominal pain, nausea or vomiting. He denies any testicular pain. No leg swelling. PAST MEDICAL HISTORY:See Below PAST SURGICAL HISTORY:See Below FAMILY HISTORY:See Below SOCIAL HISTORY:See Below HOME MEDICATIONS:See Below ALLERGIES:See Below VITALS:See Below PHYSICAL EXAMINATION: GENERAL: alert, well appearing, well nourished, no distress, non-toxic EYE EXAM: normal conjunctiva, PERRL and EOM's grossly intact OROPHARYNX: no exudate, no erythema, lips, buccal mucosa, and tongue normal and mucous membranes are moist NECK: supple, no nuchal rigidity, no adenopathy, non-tender LUNGS: Clear to auscultation. Normal chest wall mechanics, no w/r/r HEART: no murmurs, S1 normal and S2 normal ABDOMEN: abdomen soft, non-tender, normo-active bowel sounds, no masses, no rebound or guarding. BACK: Back is symmetrical on inspection and there is no deformity, no midline tenderness, no CVA tenderness. SKIN: no rashes, petechiae, orbruising UPPER EXTREMITIES: upper extremities are grossly normal. FROM, nml pulses b/l. LOWER EXTREMITIES: No pitting edema. FROM, nml pulses b/l. NEURO EXAM: Normal sensorium, cranial nerves II-XII grossly intact, normal speech, no facial droop,nogross weakness of arms, no gross weakness of legs. Gross sensation intact. No ataxia. Vital Signs: reviewed and remarkable Differential Diagnosis: UTI, Urethritis, Pyelonephritis, STI, Hyperglycemia, Yeast, prostatitis, prostatic abscess, bladder stone, bladder polyp, urinary retention, as well as others were considered, amongst other pathologies entertained. MEDICAL DECISION MAKING: This is a 80 yo male who presents to the ER after being referred by his PCP with concern for UTI. He was afebrile and VS stable. Labs drawn and sent, IV established, and patient placed on telemetry. He was started on IVF. Urine collected and sent to lab and consistent with infection. WBC noted to be 18 so procal/lactic/cultures added. He was started on IV rocephin and sent for CT imaging. CT without pyelo or obstructive uropathy, however 3 abscesses were noted in the prostate. Thrombocytopenia noted of unclear etiology. Mild anemia also present which is new. CAse discussed with urology and patient updated on results and need for further inpatient mgmt. Case discussed with the hospitalist team for additional evaluation and mgmt. Consultation(s): 1518: Discussed with urology via [place] text -recommend admission for IV antibiotics. If condition worsens or he develops sepsis, would take to the OR for intervention. 1532: Urology SALVAGER HELPER, came and evaluated patient at bedside. 1605: DIscussed with Dr. Erickson, [place] hospitalist team, for additional evaluation and mgmt. ER Treatment Provided: See below Diagnostics Interpreted By Me: -Cardiac Monitoring: An order was placed for continuous cardiac monitoring. The monitor shows a rate of 86 with normal rhythm. -Laboratory studies: As stated above and show below. -Imaging studies: CT a/p - no stone, no hydro Triage Nursing Note Reviewed Prior/Outside Records Reviewed -urology note from outside facility in 2023 reviewed Past Med/Surg History Problem List (Updated 07/13/25 @ 22:35 by Leena Hunt DO) Anemia (Acute) Thrombocytopenia (Acute) Osteoarthritis Urinary retention due to benign prostatic hyperplasia Abscess of prostate (Acute) Prostate abscess Taste perversion of BPH (benign prostatic hyperplasia) HTN (hypertension) GERD (gastroesophageal reflux disease) Sensorineural hearing loss (SNHL) of both ears Bilateral tinnitus Osteoarthritis of left knee Patellar instability of left knee Medical History Claustrophobia History of colon polyps Urinary frequency Benign prostatic hyperplasia with elevated prostate specific antigen (PSA) Eustachian tube dysfunction HTN (hypertension), benign Cataract Surgical History History of left knee replacement Left TKA (12/16/20): SAB x1 attempt + PNB at [facility] H/O knee surgery Right TKA (01/29/20): SAB x1 attempt + PNB at [facility] History of colonoscopy H/O oral surgery tooth extraction S/P mastectomy, bilateral elective- 1969 S/P surgical removal of pilonidal cyst S/P inguinal hernia repair left Family History Mother Cardiac disorder Aunt Diabetes Grandmother (Maternal) Diabetes Uncle Melanoma Father History of anesthesia reaction voiding difficulty Denies family history of Ovarian cancer Prostate cancer Myocardial infarction Breast cancer Colorectal cancer Social History Smoking Status: Former smoker Tobacco Type: Cigarettes Age Started Using Tobacco: 20; Age Quit Using Tobacco: 26; packs per day: 0.5; Second Hand Exposure: No (as a child); Do You Dip or Chew Tobacco: No; Hx Alcohol Use: Yes Alcohol type: beer, wine and hard liquor Hx Substance Use: No Preferred Language: Uzbek Communication Ability: Effective Visual Impairment: Limited Hearing Ability: Normal 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 Required: No Beliefs That Will Affect Care: None marital status: Current Living Situation: Spouse current occupational status: retired How many Children do You have: 1 How many Children do You have Comment: 1 boy Feels Safe at Home: Yes Childhood Exposure to Second-Hand Smoke: Yes Diet: regular caffeine: Yes during the past year weight has: remained stable Dental Care, Regularly: Yes Physical Activity Frequency: Daily Seatbelt Use: always Sunscreen Use: Yes Assistive Devices: Cane and Glasses Allergies Allergies Allergy/AdvReac Type Severity Reaction Status Date / Time ketoprofen AdvReac Mild GI upset Verified 07/12/25 10:56 meloxicam AdvReac Mild GI upset Verified 07/12/25 10:56 Home Meds Home Medications Medication Instructions Recorded Confirmed [id number] 300 mcg-K 60 1 tab PO BID 05/09/19 07/12/25 mcg-lycop 600 mcg-lutein 300 mcg tablet (Centrum Silver Men) vitamins-lipotropics 200 mg-100 mg 2 tab PO BID 01/10/20 07/12/25 tablet (Lipo-Flavonoid Plus) psyllium husk 3.4 gram/5.4 gram 1 tbsp PO BID 01/29/20 07/12/25 oral powder (Metamucil) polyethylene glycol 3350 17 17 gm PO DAILY PRN Constipation 04/28/20 07/12/25 gram/dose oral powder (Miralax) famotidine 40 mg tablet (Pepcid) 40 mg PO DIRECTED 07/12/25 07/12/25 Previous Rx's Medication Instructions Recorded lisinopril 40 mg tablet 40 mg PO DAILY #90 tabs 09/10/24 alfuzosin 10 mg tablet,extended 10 mg PO DAILY bph #90 tabs 09/11/24 release 24 hr amlodipine 10 mg tablet 10 mg PO DAILY #90 tabs 12/07/24 cephalexin 500 mg capsule 500 mg PO TID rn long term care rx with ID 04/04/25 #360 caps celecoxib 100 mg capsule (Celebrex) 100 mg PO BID #60 caps 05/23/25 fluticasone propionate 50 2 spray intranasal DAILY #16 grams 05/23/25 mcg/actuation nasal spray,suspension Results & Data (ED) Vital Signs Vital Signs - 24 hr 07/12/25 12:31 07/12/25 13:12 07/12/25 13:12 Temperature 36.8 C Temperature Source Skin Pulse Rate 92 H 91 H 93 H Pulse Rate from SpO2 Sensor 93 H Respiratory Rate 20 13 Respiratory Effort / Characteristics Non-Labored Spontaneous Respiratory Depth Normal Respiratory Pattern Regular Blood Pressure 128/77 Blood Pressure Mean 94 Pulse Oximetry 95 96 Oxygen Delivery Method Room Air Sepsis Recent Fever Within 48 Hours No Sepsis New/Unexplained Change in Mental Status N/A Sepsis Action Taken by Nursing No Action Required 07/12/25 13:21 07/12/25 13:30 07/12/25 13:42 Temperature Temperature Source Pulse Rate 90 82 88 Pulse Rate from SpO2 Sensor 88 84 88 Respiratory Rate 24 17 23 Respiratory Effort / Characteristics Respiratory Depth Respiratory Pattern Blood Pressure Blood Pressure Mean Pulse Oximetry 97 95 95 Oxygen Delivery Method Sepsis Recent Fever Within 48 Hours Sepsis New/Unexplained Change in Mental Status Sepsis Action Taken by Nursing 07/12/25 14:00 07/12/25 15:12 07/12/25 15:21 Temperature Temperature Source Pulse Rate 89 90 93 H Pulse Rate from SpO2 Sensor 90 93 H Respiratory Rate 22 18 31 H Respiratory Effort / Characteristics Respiratory Depth Respiratory Pattern Blood Pressure Blood Pressure Mean Pulse Oximetry 97 96 Oxygen Delivery Method Sepsis Recent Fever Within 48 Hours Sepsis New/Unexplained Change in Mental Status Sepsis Action Taken by Nursing 07/12/25 15:51 07/12/25 16:00 07/12/25 16:12 Temperature Temperature Source Pulse Rate 95 H 95 H 89 Pulse Rate from SpO2 Sensor 92 H 95 H 89 Respiratory Rate 20 19 17 Respiratory Effort / Characteristics Respiratory Depth Respiratory Pattern Blood Pressure Blood Pressure Mean Pulse Oximetry 94 96 96 Oxygen Delivery Method Sepsis Recent Fever Within 48 Hours Sepsis New/Unexplained Change in Mental Status Sepsis Action Taken by Nursing 07/12/25 16:21 07/12/25 16:30 Temperature Temperature Source Pulse Rate 85 91 H Pulse Rate from SpO2 Sensor 86 91 H Respiratory Rate 19 22 Respiratory Effort / Characteristics Respiratory Depth Respiratory Pattern Blood Pressure Blood Pressure Mean Pulse Oximetry 94 95 Oxygen Delivery Method Sepsis Recent Fever Within 48 Hours Sepsis New/Unexplained Change in Mental Status Sepsis Action Taken by Nursing Laboratory Data 07/13/25 06:35 07/13/25 06:35 Lab Results 07/12/25 07/12/25 07/12/25 Range/Units 13:02 13:55 14:50 WBC 18.04 H (4.8-10.8) K/ul RBC 4.45 L (4.70-6.10) M/uL Hgb 14.4 (14.0-18.0) g/dL Hct 39.8 L (42.0-52.0) % MCV 89.4 (80.0-100.0) fL MCH 32.4 (25.0-34.0) pg MCHC 36.2 H (32.0-36.0) g/dL RDW Std Deviation 42.8 (36.4-46.3) fL RDW Coeff of Florin 13.1 (11.5-14.5) % Plt Count 83 L (130-400) K/uL MPV 10.7 (9.4-12.4) fL Immature Gran % (Auto) 3.4 % Neut % (Auto) 87.6 % Lymph % (Auto) 4.0 % [place] % (Auto) 4.7 % Eos % (Auto) 0.1 % Baso % (Auto) 0.2 % Neut # (Auto) 15.82 H (1.40-6.50) K/uL Lymph # (Auto) 0.72 L (1.20-3.40) K/uL [place] # (Auto) 0.84 H (0.11-0.59) K/uL Eos # (Auto) 0.01 (0.00-0.50) K/uL Baso # (Auto) 0.04 (0.00-0.20) K/uL Immature Gran # (Auto) 0.61 H (0.01-0.20) K/uL Sodium 133 L (136-145) mmol/L Potassium 3.7 (3.5-5.1) mmol/L Chloride 100 (98-107) mmol/L Carbon Dioxide 25 (21-32) mmol/L Anion Gap 8 (3-11) BUN 11 (6-23) mg/dl Creatinine 0.58 L (0.6-1.4) mg/dl Est Cr Clr Drug Dosing 124.3 ml/min eGFR 99.82 BUN/Creatinine Ratio 19.0 (10-20) Glucose 117 H (70-99(Fasting)) mg/dl Lactate 0.7 (0.4-2.0) mmol/L Calcium 9.2 (8.6-10.3) mg/dl Magnesium 1.9 (1.7-2.4) mg/dl Total Bilirubin 1.1 H (0.2-1.0) mg/dl AST 19 (13-39) U/L ALT 13 (7-52) U/L Alkaline Phosphatase 74 (34-104) U/L Total Protein 6.6 (6.0-8.3) gm/dl Albumin 3.8 (3.4-5.0) gm/dl Globulin 2.8 (2.5-4.0) gm/dl Albumin/Globulin Ratio 1.4 (0.9-2) Procalcitonin 0.35 (0-0.5) ng/ml Urine Color Yellow Urine Appearance Clear (Clear) Urine pH 6.0 (4.5-7.5) Ur Specific [place] 1.007 (1.000-1.030) Urine Protein Trace H (Negative) Urine Glucose (UA) Negative (Negative) Urine Ketones 1+ H (Negative) Urine Blood 1+ H (Negative) Urine Nitrite Positive A (Negative) Urine Bilirubin Negative (Negative) Urine Urobilinogen Negative (Negative) Ur Leukocyte Esterase 3+ H (Negative) Urine WBC (Auto) >50 H (0-5) /hpf Urine RBC (Auto) 0-2 (0-2) /hpf U Hyaline Cast (Auto) 0-2 (0-2) /lpf U Epithel Cells (Auto) 0-2 (0-2) /hpf Urine Bacteria (Auto) 4+ H (None Seen) Urine Comment Administered Medications Amlodipine Besylate (Amlodipine Besylate 5 Mg Tab) 10 mg PO DAILY EDWARD Stop: 08/12/25 08:59 Last Admin: 07/13/25 08:20 Dose: 10 mg Documented By: nasim Co-signed By: YENI Celecoxib (Celecoxib 100 Mg Cap) 100 mg PO BID EDWARD Stop: 08/11/25 20:59 Last Admin: 07/13/25 20:42 Dose: 100 mg Documented By: Admin: 07/13/25 08:21 Dose: 100 mg Documented By: nasim Co-signed By: YENI Admin: 07/12/25 21:10 Dose: 100 mg Documented By: MEIR Famotidine (Famotidine 20 Mg Tab) 20 mg PO DAILY EDWARD Stop: 08/12/25 08:59 Last Admin: 07/13/25 08:25 Dose: 20 mg Documented By: nasim Co-signed By: YENI Famotidine (Famotidine 20 Mg Tab) 10 mg PO HS EDWARD Stop: 08/11/25 20:59 Last Admin: 07/13/25 20:41 Dose: 10 mg Documented By: Admin: 07/12/25 21:09 Dose: 10 mg Documented By: MEIR Fluticasone Propionate (Fluticasone Propionate Na Spr 16 Gm Btl) 2 sprays VALARIE DAILY EDWARD Stop: 08/12/25 08:59 Last Admin: 07/13/25 08:19 Dose: 2 sprays Documented By: nasim Co-signed By: YENI Heparin Sodium (Porcine) (Heparin Sod 5,000 Unit/0.5 Ml Vial) 5,000 units SQ Q12 EDWARD Stop: 08/11/25 20:59 Last Admin: 07/13/25 20:46 Dose: Not Given Documented By: Admin: 07/13/25 08:19 Dose: Not Given Documented By: nasim Admin: 07/12/25 21:15 Dose: Not Given Documented By: MEIR Sodium Chloride (Nss) 1,000 mls @ 80 mls/hr IV .[id number] EDWARD Stop: 07/15/25 19:30 Last Admin: 07/13/25 20:49 Dose: 80 mls/hr Documented By: Infusion: 07/13/25 20:43 Dose: Infused Documented By: Admin: 07/13/25 08:13 Dose: 80 mls/hr Documented By: nasim Co-signed By: YENI Infusion: 07/13/25 08:13 Dose: Infused Documented By: nasim Co-signed By: YENI Admin: 07/12/25 20:07 Dose: 80 mls/hr Documented By: MEIR Piperacillin Sod/Tazobactam Sod (Zosyn) 4.5 gm in 100 mls @ 25 mls/hr IV Q8H EDWARD; Protocol Stop: 07/20/25 12:59 Last Admin: 07/13/25 20:37 Dose: 25 mls/hr Documented By: Infusion: 07/13/25 16:35 Dose: Infused Documented By: Admin: 07/13/25 12:35 Dose: 25 mls/hr Documented By: nasim Co-signed By: YENI Lisinopril (Lisinopril 40 Mg Tab) 40 mg PO DAILY EDWARD Stop: 08/12/25 08:59 Last Admin: 07/13/25 08:21 Dose: 40 mg Documented By: nasim Co-signed By: YENI Multivitamins (Multivitamin Tab) 1 tab PO DAILY EDWARD Stop: 08/12/25 08:59 Last Admin: 07/13/25 08:20 Dose: 1 tab Documented By: nasim Co-signed By: YENI Psyllium Hydrophilic Mucilloid (Psyllium Husk 4gm Packet) 4 gm PO BID EDWARD Stop: 08/11/25 20:59 Last Admin: 07/13/25 20:39 Dose: 4 gm Documented By: Admin: 07/13/25 12:33 Dose: 4 gm Documented By: nasim Co-signed By: YENI Admin: 07/12/25 21:10 Dose: 4 gm Documented By: MEIR Tamsulosin HCl (Tamsulosin Hcl 0.4 Mg Cap) 0.4 mg PO BID EDWARD Stop: 08/12/25 20:59 Last Admin: 07/13/25 20:42 Dose: 0.4 mg Documented By: KELSEY Vitamin D (Cholecalciferol 125 Mcg (5,000 Units) Tab) 125 mcg PO QAM EDWARD Stop: 08/12/25 08:59 Last Admin: 07/13/25 08:21 Dose: 125 mcg Documented By: nasim Co-signed By: YENI Discontinued Medications Sodium Chloride (Nss) 1,000 mls @ 125 mls/hr IV .Q8H EDWARD Stop: 07/15/25 12:59 Last Infusion: 07/12/25 20:07 Dose: Infused Documented By: Admin: 07/12/25 13:14 Dose: 125 mls/hr Documented By: lois Ceftriaxone Sodium (Rocephin) 2,000 mg in 50 mls @ 100 mls/hr IV NOW STA Stop: 07/12/25 14:00 Last Infusion: 07/12/25 19:51 Dose: Infused Documented By: Admin: 07/12/25 15:11 Dose: 100 mls/hr Documented By: lois Piperacillin Sod/Tazobactam Sod (Zosyn) 4.5 gm in 100 mls @ 200 mls/hr IV ONE ONE; Protocol Stop: 07/13/25 08:14 Last Infusion: 07/13/25 08:46 Dose: Infused Documented By: Admin: 07/13/25 08:10 Dose: 200 mls/hr Documented By: nasim Co-signed By: YENI Ioversol (Optiray 320 100ml) 94 ml IV ONCE ONE Stop: 07/12/25 14:10 Last Admin: 07/12/25 14:09 Dose: 94 ml Documented By: JIHAN Tamsulosin HCl (Tamsulosin Hcl 0.4 Mg Cap) 0.4 mg PO DAILY EDWARD Stop: 08/12/25 08:59 Last Admin: 07/13/25 03:50 Dose: 0.4 mg Documented By: MEIR Imaging Data Radiologist's Impression: Abdomen/Pelvis CT 07/12/25 13:31 CT SCAN OF THE ABDOMEN AND PELVIS WITH IV CONTRAST CLINICAL HISTORY: Back pain. Urinary tract infection. COMPARISON STUDY: Abdominal series September 22, 2018. TECHNIQUE: Following the IV administration of 94 cc of Optiray 320, CT scan of the abdomen and pelvis is performed from the lung bases to the proximal femora. Images are reviewed in the axial, sagittal, and coronal planes. IV contrast was administered without complication. A dose lowering technique was utilized adhering to the principles of ALARA. CT DOSE: 1348.15 mGy.cm FINDINGS: Visualized lung bases are unremarkable. There is no pneumatosis, free air or portal venous gas. A few small suspected hepatic cysts are present. There is no biliary or pancreatic ductal dilatation. Spleen, adrenal glands and pancreas are unremarkable. There is no evidence for a bowel obstruction. There is colonic diverticulosis without evidence for acute diverticulitis. The prostate is enlarged, measuring 6.1 cm in transverse diameter. There is adjacent stranding, including perirectal stranding. Note is made of a rim-enhancing abnormality within the right peripheral zone of the prostate which measures 3.1 x 1.9 cm. There is a rim-enhancing abnormality within the left peripheral zone of the prostate which measures 2.6 x 2.6 cm an additional smaller 2.3 x 1.4 cm rim enhancing focus within the left apex of the prostate. There is mild bladder wall thickening. There is also prominent bilateral ureteral enhancement. Nephrograms are symmetric. There is bilateral perinephric stranding. There is no hydronephrosis. No urinary calculi. Moderate multilevel degenerative disc disease and facet arthrosis within the lumbar spine is present. Central canal and neural foramen are suboptimally assessed given CT technique. IMPRESSION: 1. Bladder wall thickening which could be correlated with urinalysis. This favors cystitis. Possible bilateral pyelitis without evidence for pyelonephritis. No renal abscess. No hydronephrosis. 2. Enlarged prostate which contains three rim-enhancing hypodense foci which are suspicious for multifocal prostate abscesses which measure up to 3.1 x 1.9 cm. Adjacent stranding. 3. No bowel obstruction. No bowel wall thickening. ACT 112: Negative or not required by law. Electronically signed by: Antonio Nguyen M.D. 07/12/2025 2:39 PM Discharge Plan Visit Data Chief Complaint: Urinary Symptoms Stated Complaint: urinary issues ED Provider: Leena Hunt Discharge Problem: Abscess of prostate, Thrombocytopenia, Anemia Patient Disposition: Admitted As Inpatient Condition: Fair Discharge Instructions Interventions: ED Discharge Assessment Last Done: 07/12/25 18:43
--- NOTE | 2025-07-12 16:06 | Urology Consultation ---
Date of Consultation July 12, 2025 Assessment & Plan (1) Prostate abscess: (2) BPH (benign prostatic hyperplasia): Plan 80yo male admitted with CT findings suspicious for prostate abscess - Patient afebrile and hemodynamically stable at present. - Labs showing a WBC 18.04, hemoglobin 14.4, creatinine 0.58. - Urine and blood cultures pending. - Had Ceftriaxone in the ED. - No plan for acute intervention at this time. - Would recommend continuing with broad spectrum antibiotics such as Zosyn. - Monitor bladder scans/PVRs to ensure he is emptying. - Continue supportive care. - Make NPO at midnight for reassessment tomorrow morning. - If patient develops fevers or worsening infectious symptoms, may need to consider OR for transurethral unroofing of prostate abscess. - Urology to follow, please contact us with any questions/concerns. Plan reviewed with Dr. Soto, on-call urologist. Attending note: Agree with note as above. Patient's vitals and labs were all reviewed. Pertinent values in the HPI and plan section. Imaging was reviewed interpreted by myself. Agree with read. Vitals were reviewed. Discussed findings extensively with patient and family. Reviewed with nurse practitioner as well as consulting physicians/team. Patient's complicated medical and surgical history was reviewed and summarized above. Patient's surgical, medical, social, and family history were all reviewed with pertinent values as above. Discussed patient's current diagnosis as well as concerns and issues. Reviewed different options moving forward. Discussed potential risks and benefits as well as possible options and concerns. Reviewed potential surgical options and interventions. Discussed potential issues and concerns related to intervention. Imaging was thoroughly reviewed. Does have irregularity within the prostate possible early prostate abscess formation versus irregularity versus infectious issues. Recommended broad-spectrum antibiotic coverage. Could consider moving forward with resection of prostatic abscess if patient develops severe issues with fever or signs of sepsis. Patient is currently afebrile. Does have elevated white count. Creatinine was 0.58. PSA from 2022 was 2.6. Will continue to monitor closely. History of Present Illness History of Present Illness 80-year-old male who presented to the ED today at the recommendation of his PCP for ongoing urinary symptoms and concern of developing sepsis. UA in PCP office appeared infected. Also noted to have low-grade temp. In the ED he was afebrile and hemodynamically stable. Labs showing a leukocytosis of 18.04 and creatinine 0.58. Urinalysis with 1+ blood, positive nitrite, 3+ leukocyte esterase,> 50 WBC, 4+ bacteria. CT abdomen pelvis demonstrated enlarged prostate containing 3 rim-enhancing hypodense foci suspicious for multifocal prostate abscesses measuring up to 3.1 x 1.9 cm. ED course included IV fluids and Rocephin. Patient follows with urology at [place]. Has a history of BPH on alfuzosin. No prior urological procedure. Patient was seen at bedside in the ED. Appeared comfortable and in no acute distress. Reported urinary symptoms for 3-4 days. Initially had a fever, but none since. Reports urinary frequency. No hematuria or dysuria. Having mild lower back pain. 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 Allergies Allergy/AdvReac Type Severity Reaction Status Date / Time ketoprofen AdvReac Mild GI upset Verified 07/12/25 10:56 meloxicam AdvReac Mild GI upset Verified 07/12/25 10:56 Home Medications Medication Instructions Recorded Confirmed Type [id number]-jc-[id number] 300 mcg-K 60 1 tab PO BID 05/09/19 07/12/25 History mcg-lycop 600 mcg-lutein 300 mcg tablet (Centrum Silver Men) vitamins-lipotropics 200 mg-100 mg 2 tab PO BID 01/10/20 07/12/25 History tablet (Lipo-Flavonoid Plus) psyllium husk 3.4 gram/5.4 gram 1 tbsp PO BID 01/29/20 07/12/25 History oral powder (Metamucil) polyethylene glycol 3350 17 17 gm PO DAILY PRN Constipation 04/28/20 07/12/25 History gram/dose oral powder (Miralax) lisinopril 40 mg tablet 40 mg PO DAILY #90 tabs 09/10/24 07/12/25 Rx alfuzosin 10 mg tablet,extended 10 mg PO DAILY bph #90 tabs 09/11/24 07/12/25 Rx release 24 hr amlodipine 10 mg tablet 10 mg PO DAILY #90 tabs 12/07/24 07/12/25 Rx cephalexin 500 mg capsule 500 mg PO TID stonework tracer rx with ID 04/04/25 07/12/25 Rx #360 caps celecoxib 100 mg capsule (Celebrex) 100 mg PO BID #60 caps 05/23/25 07/12/25 Rx fluticasone propionate 50 2 spray intranasal DAILY #16 grams 05/23/25 07/12/25 Rx mcg/actuation nasal spray,suspension famotidine 40 mg tablet (Pepcid) 40 mg PO DIRECTED 07/12/25 07/12/25 History Patient History Medical History Claustrophobia History of colon polyps Urinary frequency Benign prostatic hyperplasia with elevated prostate specific antigen (PSA) Eustachian tube dysfunction HTN (hypertension), benign Cataract Surgical History History of left knee replacement Left TKA (12/16/20): SAB x1 attempt + PNB at [facility] H/O knee surgery Right TKA (01/29/20): SAB x1 attempt + PNB at [facility] History of colonoscopy H/O oral surgery tooth extraction S/P mastectomy, bilateral elective- 1969 S/P surgical removal of pilonidal cyst S/P inguinal hernia repair left Family History Mother Cardiac disorder Aunt Diabetes Grandmother (Maternal) Diabetes Uncle Melanoma Father History of anesthesia reaction voiding difficulty Denies family history of Ovarian cancer Prostate cancer Myocardial infarction Breast cancer Colorectal cancer Social History Smoking Status: Former smoker Tobacco Type: Cigarettes Age Started Using Tobacco: 20; Age Quit Using Tobacco: 26; packs per day: 0.5; Second Hand Exposure: No (as a child); Do You Dip or Chew Tobacco: No; Hx Alcohol Use: Yes Alcohol type: beer, wine and hard liquor Hx Substance Use: No Preferred Language: Norwegian Communication Ability: Effective Visual Impairment: Limited Hearing Ability: Normal Intelligence Operations Required: No Beliefs That Will Affect Care: None marital status: Current Living Situation: Family current occupational status: retired How many Children do You have: 1 How many Children do You have Comment: 1 boy Feels Safe at Home: Yes Childhood Exposure to Second-Hand Smoke: Yes Diet: regular caffeine: Yes during the past year weight has: remained stable Dental Care, Regularly: Yes Physical Activity Frequency: Daily Seatbelt Use: always Sunscreen Use: Yes Assistive Devices: Glasses and Walker Review of Systems Review of Systems: All systems reviewed & are unremarkable except as noted in HPI & below Physical Exam Constitutional: no acute distress Respiratory: no respiratory distress and no labored breathing Musculoskeletal: Head/Neck/Chest: normocephalic Skin: No visible rashes or lesions to exposed skin areas Neurologic: moves all extremities and awake Psychiatric: A+Ox3, euthymic affect Results & Data Vital Signs (Past 12 Hours) Vital Signs Temp Pulse Resp BP Pulse Ox O2 Del Method 07/12/25 13:42 88 23 95 07/12/25 13:30 82 17 95 07/12/25 13:21 90 24 97 07/12/25 13:12 93 H 13 96 07/12/25 13:12 91 H 07/12/25 12:31 36.8 C 92 H 20 128/77 95 Room Air PG Care Time/CCT Total # of Minutes Spent Total Time Spent with Patient: Total time spent is greater than 50% in coordination of care (as documented) at patient's floor/unit and/or counseling patient: Coding Level of Care Code 74493 INT INP/OBS CARE 2/55MIN Diagnoses Prostate abscess N41.2 BPH (benign prostatic hyperplasia) N40.0
--- NOTE | 2025-07-12 16:30 | History & Physical Report ---
Date of Service July 12, 2025 Assessment & Plan (1) Urinary retention due to benign prostatic hyperplasia: Plan: Continue alfuzosin for now. He may need to just be switched back to tamsulosin which he felt he did better while he was taken that. Straight cath as needed (2) Abscess of prostate: Plan: [address] scan. Urology consultation requested. Continue intravenous Rocephin, day 1 (3) HTN (hypertension): Plan: Currently stable. Continue amlodipine and lisinopril (4) Osteoarthritis: Plan: Currently stable. Continue Celebrex Plan Anticipate eventual discharge back to home History of Present Illness Chief Complaint: Urinary retention, dysuria Primary Care Provider: Skyler Rodriguez MD 80-year-old white male in no acute distress. He states he is been having difficulty voiding for several days and presented to the ED for evaluation. White blood cell count is elevated and he has evidence of UTI on urine analysis. CT scan reveals evidence of several prostate abscesses. The ED physician spoke to urology who has been consulted. He was given Rocephin in the ED. He will remain on alfuzosin for the time being. This may need to be changed back to tamsulosin which he feels he did better on. He denies hematuria. No overt fever or rigors but he did state he felt chilled recently Allergies Allergy/AdvReac Type Severity Reaction Status Date / Time ketoprofen AdvReac Mild GI upset Verified 07/12/25 10:56 meloxicam AdvReac Mild GI upset Verified 07/12/25 10:56 Home Medications Medication Instructions Recorded Confirmed Type rrdprkhj-qt-mutuf 300 mcg-K 60 1 tab PO BID 05/09/19 07/12/25 History mcg-lycop 600 mcg-lutein 300 mcg tablet (Centrum Silver Men) vitamins-lipotropics 200 mg-100 mg 2 tab PO BID 01/10/20 07/12/25 History tablet (Lipo-Flavonoid Plus) psyllium husk 3.4 gram/5.4 gram 1 tbsp PO BID 01/29/20 07/12/25 History oral powder (Metamucil) polyethylene glycol 3350 17 17 gm PO DAILY PRN Constipation 04/28/20 07/12/25 History gram/dose oral powder (Miralax) lisinopril 40 mg tablet 40 mg PO DAILY #90 tabs 09/10/24 07/12/25 Rx alfuzosin 10 mg tablet,extended 10 mg PO DAILY bph #90 tabs 09/11/24 07/12/25 Rx release 24 hr amlodipine 10 mg tablet 10 mg PO DAILY #90 tabs 12/07/24 07/12/25 Rx cephalexin 500 mg capsule 500 mg PO TID [facility] rx with ID 04/04/25 07/12/25 Rx #360 caps celecoxib 100 mg capsule (Celebrex) 100 mg PO BID #60 caps 05/23/25 07/12/25 Rx fluticasone propionate 50 2 spray intranasal DAILY #16 grams 05/23/25 07/12/25 Rx mcg/actuation nasal spray,suspension famotidine 40 mg tablet (Pepcid) 40 mg PO DIRECTED 07/12/25 07/12/25 History Past Med/Surg History Problem List (Updated 07/12/25 @ 16:28 by Ricardo Erickson MD) Osteoarthritis Urinary retention due to benign prostatic hyperplasia Abscess of prostate (Acute) Prostate abscess Taste perversion of BPH (benign prostatic hyperplasia) HTN (hypertension) GERD (gastroesophageal reflux disease) Sensorineural hearing loss (SNHL) of both ears Bilateral tinnitus Osteoarthritis of left knee Patellar instability of left knee Medical History Claustrophobia History of colon polyps Urinary frequency Benign prostatic hyperplasia with elevated prostate specific antigen (PSA) Eustachian tube dysfunction HTN (hypertension), benign Cataract Surgical History History of left knee replacement Left TKA (12/16/20): SAB x1 attempt + PNB at [facility] H/O knee surgery Right TKA (01/29/20): SAB x1 attempt + PNB at [facility] History of colonoscopy H/O oral surgery tooth extraction S/P mastectomy, bilateral elective- 1969 S/P surgical removal of pilonidal cyst S/P inguinal hernia repair left Family History Mother Cardiac disorder Aunt Diabetes Grandmother (Maternal) Diabetes Uncle Melanoma Father History of anesthesia reaction voiding difficulty Denies family history of Ovarian cancer Prostate cancer Myocardial infarction Breast cancer Colorectal cancer Social History Smoking Status: Former smoker Tobacco Type: Cigarettes Age Started Using Tobacco: 20; Age Quit Using Tobacco: 26; packs per day: 0.5; Second Hand Exposure: No (as a child); Do You Dip or Chew Tobacco: No; Hx Alcohol Use: Yes Alcohol type: beer, wine and hard liquor Hx Substance Use: No Preferred Language: Chinese Communication Ability: Effective Visual Impairment: Limited Hearing Ability: Normal Globe Changer Required: No Beliefs That Will Affect Care: None marital status: Current Living Situation: Family current occupational status: retired How many Children do You have: 1 How many Children do You have Comment: 1 boy Feels Safe at Home: Yes Childhood Exposure to Second-Hand Smoke: Yes Diet: regular caffeine: Yes during the past year weight has: remained stable Dental Care, Regularly: Yes Physical Activity Frequency: Daily Seatbelt Use: always Sunscreen Use: Yes Assistive Devices: Glasses and Walker Review of Systems 2 Review of Systems: Constitutionalno fever or chills ENTno blurred vision, no double vision, no epistaxis, no sore throat Respiratoryno cough, no wheezing, no shortness of breath Cardiacno palpitations, no chest pain, no syncope Earnest nausea, vomiting, diarrhea, melena, hematochezia GUdifficulty with urination. No gross hematuria. Musculoskeletalno joint pain, no muscle tenderness Skinno bruising, no rashes, no pruritus Neurono isolated weakness, no paresthesia, no weakness Psychno depression, no anxiety Physical Exam 2 Physical Exam: General-alert and oriented x3, no fever, no chills HEENT-head atraumatic and normocephalic, pupils equal and reactive to light, extraocular muscles intact Neck-no lymphadenopathy or thyromegaly, trachea midline Chest-clear to auscultation. No rales, wheezing or rhonchi Cardiac-regular rate and rhythm, normal S1 and S2 Abdomen-normal bowel sounds, no hepatosplenomegaly Extremities-no cyanosis, clubbing, or edema Neuro-cranial nerves II through XII intact, motor and sensory function within normal limits, strength symmetrical, no focal deficits Psych-normal affect, normal mood Results & Data Results & Data Vital Signs (Past 12 Hours) Vital Signs Temp Pulse Resp BP Pulse Ox O2 Del Method 07/12/25 13:42 88 23 95 07/12/25 13:30 82 17 95 07/12/25 13:21 90 24 97 07/12/25 13:12 93 H 13 96 07/12/25 13:12 91 H 07/12/25 12:31 36.8 C 92 H 20 128/77 95 Room Air Laboratory Results 07/12/25 13:02 07/12/25 13:02 Code Status & VTE Plan Code Status Full code PG Care Time/CCT Total # of Minutes Spent Total Time Spent with Patient: Total time spent is greater than 50% in coordination of care (as documented) at patient's floor/unit and/or counseling patient: Coding Level of Care Code 63298 INT INP/OBS CARE 3/75MIN Diagnoses Urinary retention due to benign prostatic hyperplasia N40.1; R33.8 Abscess of prostate N41.2 Essential hypertension I10 Hypertension type: essential hypertension Osteoarthritis M19.90 (3) HTN (hypertension) Hypertension type: essential hypertension Qualified Code(s): I10 - Essential (primary) hypertension
[2025-07-12] MEDS ORDERED: ONDANSETRON INJ 2 MG/ML 2 ML VIAL IV PRN (19:31)
[2025-07-12] MEDS ORDERED: FAMOTIDINE 20 MG TAB PO SCH (21:00)
[2025-07-12] MEDS: FAMOTIDINE 20 MG TAB PO SCH (21:09)
[2025-07-12] MEDS: CELECOXIB 100 MG CAP PO SCH (21:10)
[2025-07-12] MEDS: PSYLLIUM HUSK 4GM PACKET PO SCH (21:10)
[2025-07-12] MEDS: HEPARIN SOD 5,000 UNIT/0.5 ML VIAL SQ SCH (21:15)
[2025-07-13] MEDS: TAMSULOSIN HCL 0.4 MG CAP PO SCH ×2 (03:50→20:42)
[2025-07-13 07:00] LABS: Hematocrit (blood only) 33.4 % (42.0-52.0); Hemoglobin 12.3 g/dL (14.0-18.0); Immature Granulocytes # (auto) 0.07 K/uL (0.01-0.20); Immature Granulocytes % (auto) 0.6 %; Mean Corpuscular Hemoglobin 32.7 pg (25.0-34.0); Mean Corpuscular Volume 88.8 fL (80.0-100.0); Platelet Count 87 K/uL (130-400); RDW Standard Deviation 42.9 fL (36.4-46.3); Red Blood Count 3.76 M/uL (4.70-6.10); White Blood Count 11.42 K/ul (4.8-10.8)
[2025-07-13 07:41] LABS: Anion Gap 8.0 (3-11); Blood Urea Nitrogen 9.0 mg/dl (6-23); Calcium 8.6 mg/dl (8.6-10.3); Carbon Dioxide 24.0 mmol/L (21-32); Chloride 105.0 mmol/L (98-107); Creatinine Clr Calc Pharmacy 152.2 ml/min; Glucose 100.0 mg/dl (70-99(Fasting)); Potassium 3.5 mmol/L (3.5-5.1); Sodium 137.0 mmol/L (136-145)
[2025-07-13] MEDS: PIPERACILLIN/TAZOBACTAM 4.5 GM/100 ML BAG IV ONE (08:10)
[2025-07-13] MEDS: FLUTICASONE PROPIONATE NA SPR 16 GM BTL NAE SCH (08:19)
[2025-07-13] MEDS: MULTIVITAMIN TAB PO SCH (08:20)
[2025-07-13] MEDS: CHOLECALCIFEROL 125 MCG (5,000 UNITS) TAB PO SCH (08:21)
[2025-07-13] MEDS: FAMOTIDINE 20 MG TAB PO SCH (08:25)
--- NOTE | 2025-07-13 11:27 | Hospitalist Progress Note ---
Date of Service July 13, 2025 Assessment & Plan (1) Urinary retention due to benign prostatic hyperplasia: Plan: Continue alfuzosin for now. He may need to just be switched back to tamsulosin which he felt he did better while he was taken that. Straight cath as needed. Appreciate urology consultation and recommendations (2) Abscess of prostate: Plan: [address] scan. Urology consultation and recommendations noted. Rocephin has been switched to intravenous Zosyn. Antibiotic day 2 (3) HTN (hypertension): Plan: Currently stable. Continue amlodipine and lisinopril (4) Osteoarthritis: Plan: Currently stable. Continue Celebrex (5) Thrombocytopenia: Plan: Platelet count is slightly low at 87,000. Low platelet count is probably due to current active infection. No active bleeding. Will follow Plan Anticipate eventual discharge back to home this coming week Admission and Anticipated Discharge Date Admission Date: July 12, 2025 Subjective Alert and oriented. No distress. White count has dropped to 11,000. Rocephin has been switched to intravenous Zosyn per urology recommendation. Platelet count is somewhat low at 87,000. Will follow. Urology consultation appreciated. If no surgery is necessary, we will start oral intake. Review of Systems 2 Review of Systems: Constitutionalno fever or chills ENTno blurred vision, no double vision, no epistaxis, no sore throat Respiratoryno cough, no wheezing, no shortness of breath Cardiacno palpitations, no chest pain, no syncope Earnest nausea, vomiting, diarrhea, melena, hematochezia GUdifficulty with urination. No gross hematuria. Musculoskeletalno joint pain, no muscle tenderness Skinno bruising, no rashes, no pruritus Neurono isolated weakness, no paresthesia, no weakness Psychno depression, no anxiety Physical Exam 2 Physical Exam: General-alert and oriented x3, no fever, no chills HEENT-head atraumatic and normocephalic, pupils equal and reactive to light, extraocular muscles intact Neck-no lymphadenopathy or thyromegaly, trachea midline Chest-clear to auscultation. No rales, wheezing or rhonchi Cardiac-regular rate and rhythm, normal S1 and S2 Abdomen-normal bowel sounds, no hepatosplenomegaly Extremities-no cyanosis, clubbing, or edema Neuro-cranial nerves II through XII intact, motor and sensory function within normal limits, strength symmetrical, no focal deficits Psych-normal affect, normal mood Results & Data Results & Data Vital Signs (Past 12 Hours) Vital Signs Temp Pulse Resp BP Pulse Ox O2 Del Method 07/13/25 07:36 36.7 C 76 18 119/69 90 Room Air 07/12/25 23:57 36.8 C 85 18 115/69 93 Room Air Laboratory Results 07/13/25 06:35 07/13/25 06:35 PG Care Time/CCT Total # of Minutes Spent Total Time Spent with Patient: Total time spent is greater than 50% in coordination of care (as documented) at patient's floor/unit and/or counseling patient: Coding Level of Care Code 07000 SUB INP/OBS CARE 2/35MIN Diagnoses Urinary retention due to benign prostatic hyperplasia N40.1; R33.8 Abscess of prostate N41.2 Essential hypertension I10 Hypertension type: essential hypertension Osteoarthritis M19.90 Thrombocytopenia D69.6 (3) HTN (hypertension) Hypertension type: essential hypertension Qualified Code(s): I10 - Essential (primary) hypertension
[2025-07-13] MEDS: PIPERACILLIN/TAZOBACTAM 4.5 GM/100 ML BAG IV SCH (12:35)
--- NOTE | 2025-07-13 14:12 | Urology Progress Note ---
Date of Service July 13, 2025 Assessment & Plan (1) Prostate abscess: (2) BPH (benign prostatic hyperplasia): Plan 80yo male admitted with CT findings suspicious for prostate irregularity possible abscess Patient was resting comfortably. He was n.p.o. overnight but this was removed around noon. Patient was going to be eating lunch right after our assessment. Patient has not had major increase in symptoms or bother with fever chills or other issues. Was having increasing issues with urgency and frequency and incomplete emptying overnight. Patient had been on alpha blockers in the past had previously been on tamsulosin twice a day per patient report. Had been recently switched to alfuzosin. 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 Was voiding every 1/2 hour and had residuals around 500. At that time I was alerted and gave a order for approval for an early treatment with his alpha-ozzy. Since that treatment he has had improved emptying. He is still having some higher residuals but they have been less severe. Patient is otherwise remained stable with only mild white count coming back at 11.42. Vitals have remained stable and patient is afebrile. Reviewed extensively different options. Discussed continued supportive care. Discussed findings on imaging. This was reviewed interpreted by myself. Does have possible fluid collections versus abnormality within the prostate. Other considerations would be a prostatic fluid collection or cyst, early abscess formation, phlegmon, or other artifact or abnormality. As patient has remained afebrile hemodynamically stable and is not having severe pain or discomfort did discuss observation for now with broad-spectrum antibiotic coverage for presumed prostatitis. If patient does develop significant issue or discharge or concern for worsening condition or obstruction could consider possible intervention. Did discuss options for aspiration/drainage rectally versus resection and unroofing transurethral approach. Did discuss concerns and issues with these different options and approaches. Did discuss potential issues with voiding and other concerns. Discussed other concerns and issues. Additionally discussed need for catheterization afterwards. Patient was comfortable with continuing to observe. Patient currently on broad-spectrum antibiotics. Will likely continue until able to de-escalate. May be able to utilize Cipro or a another antibiotic with good tissue penetration for presumed prostatitis. Will likely need an additional 1 to 2 days until antibiotic course is fully realized. With the presumption of prostatitis will likely need a longer course of antibiotics possibly 2 to 3 weeks in order to fully clear. Patient is set to go on a trip for [employer] starting next Tuesday. If he continues to improve and does not develop severe fevers or other issues and he is able to be discharged on oral antibiotics would likely still be able to continue with this. Call if patient develops severe fever chills or other major issue. If patient develops any signs of sepsis or other concern would likely plan to move forward with immediate surgical intervention and likely transurethral resection of prostate to unroofed potential abscess. Did discuss utilization of alpha-ozzy for relaxation of prostate and improvement with emptying and voiding. Patient previously tolerated tamsulosin. Had been at 1 point on it up to twice a day. For the time being we will put in orders that patient can have the medication twice daily. Would recommend likely first thing in the morning and before bedtime. Can likely go down to once daily dosing once issues have improved. Admission and Anticipated Discharge Date Admission Date: July 12, 2025 Subjective Patient admitted with likely infection with prostatitis and discomfort. Patient was having increasing issues with voiding. Patient had been started on broad-spectrum antibiotics. Imaging showed possible abscess formation within the prostate. Additional considerations would be artifact versus fluid collection versus phlegmon versus prostatitis. Additionally could be possible cystic lesion within the prostate. Patient had possible fever at home but has since been monitoring and not having a major issues. Patient had been utilizing alfuzosin but did state he had previously been on tamsulosin. 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 He was voiding every 1/2 hour. Was not emptying completely. A colleen dder scan had shown over 500 cc. Patient had taken his alpha-ozzy last the morning prior. I was alerted by the nursing and I had recommended doing a one-time early dose of the alpha- ozzy to see if this would improve his emptying. This did improve with the treatment. Patient is afebrile. Has been undergoing supportive care and antibiotic therapy with oral medications, IV medications, IV fluids, and oral intake. Was n.p.o. overnight but this was removed at this afternoon. Is doing better without considerable increase in pain or major issues. Has not developed severe vomiting or other issues. Has not experienced fever or chills. Has been tolerating oral medications. Is tolerating fluids. Has noticed some frequency and urgency. Has not had severe pain in the back and flank. Does have occasional burning and irritation. No severe episodes or major changes. Has not passed a large amount of blood or debris that may be the stone. Review of Systems Review of Systems: All systems reviewed & are unremarkable except as noted in HPI & below Physical Exam Physical Exam: General: Alert in no acute distress. HEENT: Normocephalic Atraumatic. Inspection normal. Cranial Nerves 2-12 Grossly intact. Normal inspection of face. Normal inspection of neck. Psychologic: Normal affect. Respiratory: Nonlabored. No use of accessory muscles. No tachypnea or dyspnea. Cardiovascular: No tachycardia Skin: [place] and Dry. No rashes or visible lesions. Extremities/Lymphatics: No edema Abdomen: Soft Non-distended. No rebound or guarding. Results & Data Vital Signs (Past 12 Hours) Vital Signs Temp Pulse Resp BP Pulse Ox O2 Del Method 07/13/25 07:36 36.7 C 76 18 119/69 90 Room Air PG Care Time/CCT Total # of Minutes Spent Total Time Spent with Patient: Total time spent is greater than 50% in coordination of care (as documented) at patient's floor/unit and/or counseling patient: Coding Level of Care Code 87530 SUB INP/OBS CARE 3/50MIN Diagnoses Prostate abscess N41.2 BPH (benign prostatic hyperplasia) N40.0
[2025-07-13] MEDS ORDERED: cefTRIAXone SODIUM 2,000 MG/50 ML BAG IV SCH (15:00)
[2025-07-14] MEDS: ACETAMINOPHEN 325 MG TAB PO PRN (05:57)
[2025-07-14 07:21] LABS: Hematocrit (blood only) 38.5 % (42.0-52.0); Hemoglobin 13.7 g/dL (14.0-18.0); Immature Granulocytes # (auto) 0.11 K/uL (0.01-0.20); Immature Granulocytes % (auto) 0.8 %; Mean Corpuscular Hemoglobin 31.8 pg (25.0-34.0); Mean Corpuscular Volume 89.3 fL (80.0-100.0); Platelet Count 98 K/uL (130-400); RDW Standard Deviation 43.6 fL (36.4-46.3); Red Blood Count 4.31 M/uL (4.70-6.10); White Blood Count 13.22 K/ul (4.8-10.8)
[2025-07-14 07:35] LABS: Anion Gap 11.0 (3-11); Blood Urea Nitrogen 9.0 mg/dl (6-23); Calcium 9.0 mg/dl (8.6-10.3); Carbon Dioxide 23.0 mmol/L (21-32); Chloride 101.0 mmol/L (98-107); Creatinine Clr Calc Pharmacy 135.0 ml/min; Glucose 117.0 mg/dl (70-99(Fasting)); Potassium 3.6 mmol/L (3.5-5.1); Sodium 135.0 mmol/L (136-145)
--- NOTE | 2025-07-14 11:00 | Hospitalist Progress Note ---
Date of Service July 14, 2025 Assessment & Plan (1) Urinary retention due to benign prostatic hyperplasia: Plan: Alfuzosin has been switched back to tamsulosin which he felt he did better on while he was taking that. Will straight cath as needed. Appreciate urology consultation and recommendations (2) Abscess of prostate: Plan: [address] scan. Urology consultation and recommendations noted. Rocephin has been switched to intravenous Zosyn. Antibiotic day 3 (3) HTN (hypertension): Plan: Currently stable. Continue amlodipine and lisinopril (4) Osteoarthritis: Plan: Currently stable. Continue Celebrex (5) Thrombocytopenia: Plan: Platelet count is uptrending now. Today, July 14, platelet count is 98,000. Low platelet count is probably due to current active infection. No active bleeding. Will follow Plan Anticipate eventual discharge back to home this coming week on an oral antibiotic when cleared by urology. Admission and Anticipated Discharge Date Admission Date: July 12, 2025 Subjective Alert and oriented. No complaints. He remains on intravenous Zosyn for the prostatitis with prostate abscesses. Appreciate urology consultation and recommendations. Conservative management indicated at this time. Oral intake is adequate. IV fluids have been discontinued. Platelet count was probably low from the acute infection and is improving. Now 98,000. Blood culture obtained July 12 remains negative. Review of Systems 2 Review of Systems: Constitutionalno fever or chills ENTno blurred vision, no double vision, no epistaxis, no sore throat Respiratoryno cough, no wheezing, no shortness of breath Cardiacno palpitations, no chest pain, no syncope Earnest nausea, vomiting, diarrhea, melena, hematochezia GUdifficulty with urination. No gross hematuria. Musculoskeletalno joint pain, no muscle tenderness Skinno bruising, no rashes, no pruritus Neurono isolated weakness, no paresthesia, no weakness Psychno depression, no anxiety Physical Exam 2 Physical Exam: General-alert and oriented x3, no fever, no chills HEENT-head atraumatic and normocephalic, pupils equal and reactive to light, extraocular muscles intact Neck-no lymphadenopathy or thyromegaly, trachea midline Chest-clear to auscultation. No rales, wheezing or rhonchi Cardiac-regular rate and rhythm, normal S1 and S2 Abdomen-normal bowel sounds, no hepatosplenomegaly Extremities-no cyanosis, clubbing, or edema Neuro-cranial nerves II through XII intact, motor and sensory function within normal limits, strength symmetrical, no focal deficits Psych-normal affect, normal mood Results & Data Results & Data Vital Signs (Past 12 Hours) Vital Signs Temp Pulse Resp BP Pulse Ox O2 Del Method 07/14/25 07:21 37.0 C 87 20 117/69 91 Room Air 07/14/25 05:58 37.3 C 07/13/25 23:03 36.7 C 74 18 134/74 93 Room Air Laboratory Results 07/14/25 06:40 07/14/25 06:40 PG Care Time/CCT Total # of Minutes Spent Total Time Spent with Patient: Total time spent is greater than 50% in coordination of care (as documented) at patient's floor/unit and/or counseling patient: Coding Level of Care Code 67402 SUB INP/OBS CARE 2/35MIN Diagnoses Urinary retention due to benign prostatic hyperplasia N40.1; R33.8 Abscess of prostate N41.2 Essential hypertension I10 Hypertension type: essential hypertension Osteoarthritis M19.90 Thrombocytopenia D69.6 (3) HTN (hypertension) Hypertension type: essential hypertension Qualified Code(s): I10 - Essential (primary) hypertension
--- NOTE | 2025-07-14 11:11 | Urology Progress Note ---
Date of Service July 14, 2025 Assessment & Plan (1) Prostate abscess: (2) BPH (benign prostatic hyperplasia): Plan 80yo male admitted with UTI and Prostatitis with CT findings suspicious for prostate irregularity possible abscess Patient was resting comfortably. Patient has not had major increase in symptoms or bother with fever chills or other issues. Was having increasing issues with urgency and frequency and incomplete emptying overnight. Patient had been on alpha blockers in the past had previously been on tamsulosin twice a day per patient report. Reviewed extensively different options. Discussed continued supportive care. Discussed findings on imaging. This was reviewed interpreted by myself. Does have possible fluid collections versus abnormality within the prostate. Other considerations would be a prostatic fluid collection or cyst, early abscess formation, phlegmon, or other artifact or abnormality. As patient has remained afebrile hemodynamically stable and is not having severe pain or discomfort did discuss observation for now with broad-spectrum antibiotic coverage for presumed prostatitis. If patient does develop significant issue or discharge or concern for worsening condition or obstruction could consider possible intervention. Did discuss options for aspiration/drainage rectally versus resection and unroofing transurethral approach. Did discuss concerns and issues with these different options and approaches. Did discuss potential issues with voiding and other concerns. Discussed other concerns and issues. Additionally discussed need for catheterization afterwards. Patient was comfortable with continuing to observe. Patient currently on broad-spectrum antibiotics. Culture has now come back with Pseudomonas. Does not appear to have major resistance. Can likely be transition to oral Cipro over time. Will likely need a longer course due to the prostatitis and potential significant infection within the prostate. Patient remains afebrile. Vitals remained stable. With the presumption of prostatitis will likely need a longer course of antibiotics possibly 2 to 3 weeks in order to fully clear. Patient is set to go on a trip for [employer] starting next Tuesday. Patient currently tolerating tamsulosin. Has had somewhat improved voiding. For the time being we will put in orders that patient can have the medication twice daily. Would recommend likely first thing in the morning and before b edtime. Plan to monitor over time. Can transition to oral Cipro and continue with observation and supportive care. Admission and Anticipated Discharge Date Admission Date: July 12, 2025 Subjective Patient admitted with likely infection with prostatitis and discomfort. Patient was having increasing issues with voiding. Patient had been started on broad-spectrum antibiotics. Imaging showed possible abscess formation within the prostate. Additional considerations would be artifact versus fluid collection versus phlegmon versus prostatitis. Additionally could be possible cystic lesion within the prostate. Patient had possible fever at home but has since been monitoring and not having a major issues. Patient had been utilizing alfuzosin but did state he had previously been on tamsulosin. 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 He was voiding every 1/2 hour. Was not emptying completely. A bladder scan had shown over 500 cc. Patient had taken his alpha-ozzy last the morning prior. I was alerted by the nursing and I had recommended doing a one-time early dose of the alpha- ozzy to see if this would improve his emptying. This did improve with the treatment. Patient is afebrile. Has been undergoing supportive care and antibiotic therapy with oral medications, IV medications, IV fluids, and oral intake. Was n.p.o. overnight but this was removed at this afternoon. Is doing better without considerable increase in pain or major issues. Has not developed severe vomiting or other issues. Has not experienced fever or chills. Has been tolerating oral medications. Is tolerating fluids. Has noticed some frequency and urgency. Has not had severe pain in the back and flank. Does have occasional burning and irritation. No severe episodes or major changes. Has not passed a large amount of blood or debris that may be the stone. Review of Systems Review of Systems: All systems reviewed & are unremarkable except as noted in HPI & below Physical Exam Physical Exam: General: Alert in no acute distress. HEENT: Normocephalic Atraumatic. Inspection normal. Cranial Nerves 2-12 Grossly intact. Normal inspection of face. Normal inspection of neck. Psychologic: Normal affect. Respiratory: Nonlabored. No use of accessory muscles. No tachypnea or dyspnea. Cardiovascular: No tachycardia Skin: [place] and Dry. No rashes or visible lesions. Extremities/Lymphatics: No edema Abdomen: Soft Non-distended. No rebound or guarding. Results & Data Vital Signs (Past 12 Hours) Vital Signs Temp Pulse Resp BP Pulse Ox O2 Del Method 07/14/25 07:21 37.0 C 87 20 117/69 91 Room Air 07/14/25 05:58 37.3 C PG Care Time/CCT Total # of Minutes Spent Total Time Spent with Patient: Total time spent is greater than 50% in coordination of care (as documented) at patient's floor/unit and/or counseling patient: Coding Level of Care Code 09534 SUB INP/OBS CARE 3/50MIN Diagnoses Prostate abscess N41.2 BPH (benign prostatic hyperplasia) N40.0
[2025-07-15 09:57] LABS: Hematocrit (blood only) 42.4 % (42.0-52.0); Hemoglobin 15.2 g/dL (14.0-18.0); Immature Granulocytes # (auto) 0.27 K/uL (0.01-0.20); Immature Granulocytes % (auto) 2.5 %; Mean Corpuscular Hemoglobin 32.1 pg (25.0-34.0); Mean Corpuscular Volume 89.6 fL (80.0-100.0); Platelet Count 83 K/uL (130-400); RDW Standard Deviation 43.8 fL (36.4-46.3); Red Blood Count 4.73 M/uL (4.70-6.10); White Blood Count 10.87 K/ul (4.8-10.8)
[2025-07-15 10:11] LABS: Anion Gap 8.0 (3-11); Blood Urea Nitrogen 10.0 mg/dl (6-23); Calcium 9.3 mg/dl (8.6-10.3); Carbon Dioxide 27.0 mmol/L (21-32); Chloride 100.0 mmol/L (98-107); Creatinine Clr Calc Pharmacy 110.0 ml/min; Glucose 145.0 mg/dl (70-99(Fasting)); Potassium 3.5 mmol/L (3.5-5.1); Sodium 135.0 mmol/L (136-145)
--- NOTE | 2025-07-15 10:21 | Urology Progress Note ---
Date of Service July 15, 2025 Assessment & Plan (1) BPH (benign prostatic hyperplasia): (2) Prostate abscess: Plan: 80yo male admitted with UTI and Prostatitis with CT findings suspicious for prostate irregularity possible abscess Patient remains afebrile and hemodynamically stable Labs reviewedcreatinine 0.65, WBC 10.87, hemoglobin 15.2 Urine culture with Pseudomonas, pansensitive Blood cultures with no growth to date Continue broad-spectrum antibiotics, plan to transition to oral antibiotics Recommend extended course of ciprofloxacin for prostatitis, possible fluid collections versus abnormality within the prostate, early abscess formation, phlegmon, or other artifact or abnormality seen on CT Recommend discharge with at least 20 days of appropriate antibiotics and follow- up with urology for repeat imaging Continue Tamsulosin BID Recommend post void residual bladder scan as needed Continue supportive care and medical management per hospital medicine Plan to follow-up with urology in approximately 2 weeks will sign off, please contact our service with any additional questions or concerns Admission and Anticipated Discharge Date Admission Date: July 12, 2025 Subjective Patient seen and examined at bedside. He is awake and sitting up in bed. Generally feeling okay. No fevers or chills. Voiding spontaneously. Notes some urinary urgency. He reports it takes some time to void, practicing double voiding. He feels that Tamsulosin twice daily is helping. Review of Systems Constitutional: as per Subjective / HPI Genitourinary: + as per Subjective / HPI Physical Exam Constitutional: well developed and well nourished; no acute distress Respiratory: normal respiratory effort; no respiratory distress and no labored breathing Gastrointestinal (Abdomen): Inspection/Auscultation: abdomen normal to inspection Musculoskeletal: Head/Neck/Chest: normocephalic Neurologic: moves all extremities and awake Psychiatric: Orientation: alert and oriented x 3 Results & Data Vital Signs (Past 12 Hours) Vital Signs Temp Pulse Pulse Resp BP BP Pulse Ox 07/15/25 07:44 36.8 C 83 16 142/80 H 96 07/14/25 23:11 36.9 C 77 18 128/80 93 O2 Del Method 07/15/25 07:44 Room Air 07/14/25 23:11 Room Air PG Care Time/CCT Total # of Minutes Spent Total Time Spent with Patient: Total time spent is greater than 50% in coordination of care (as documented) at patient's floor/unit and/or counseling patient: Coding Level of Care Code 90813 SUB INP/OBS CARE MIN Diagnoses BPH (benign prostatic hyperplasia) N40.0 Prostate abscess N41.2
--- NOTE | 2025-07-15 11:55 | Discharge Summary ---
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 #Sepsis POA/prostatic abscesses/cystitis/BPH-with tachycardia, tachypnea, leukocytosis, and UTI on admission-with sepsis, not severe. Found to have prostatic abscesses on CT abdomen/pelvis. Seen by urology who recommended IV antibiotics and switch to oral for total of 3 to 4 weeks total of antibiotics. His urine culture grew Pseudomonas aeruginosa pansensitive including to fluoroquinolones. His QTc was normal on ECG at 435. His leukocytosis and tachycardia as well as tachypnea resolved. He was much improved. He was continuing to have some urinary retention at the time of discharge with PVR 500 and then a PVR of 300 but this was acceptable and he was discharged to home without a Pastrana catheter - Switched alfuzosin to tamsulosin 0.4 mg p.o. twice daily which patient believes worked better for him in the past for his retention - Follow-up with urology in the office in 2 weeks - Continue ciprofloxacin 500 mg p.o. twice daily x 20 more days - Blood cultures-remain no growth to date-to be followed after discharge - Will need repeat imaging of the prostate to be ordered by urology as an outpatient #Thrombocytopenia-platelets on admission low at 83. He has had a history of thrombocytopenia intermittently in the past and is followed by PCP. 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 twice daily x 21 days Switched alfuzosin to tamsulosin 0.4 mg p.o. twice daily Admission HPI Per Admitting Provider 80-year-old white male in no acute distress. He states he is been having difficulty voiding for several days and presented to the ED for evaluation. White blood cell count is elevated and he has evidence of UTI on urine analysis. CT scan reveals evidence of several prostate abscesses. The ED physician spoke to urology who has been consulted. He was given Rocephin in the ED. He will remain on alfuzosin for the time being. This may need to be changed back to tamsulosin which he feels he did better on. He denies hematuria. No overt fever or rigors but he did state he felt chilled recently Discharge Exam Constitutional WD/WN, vitals as above Eyes PERRL, conjunctivae normal, anicteric sclerae ENMT external ear and nose normal, oropharynx normal Neck trachea midline, no thyromegaly Respiratory normal respiratory effort, lungs clear to auscultation Cardiovascular RRR, no murmur, no edema Chest (Breasts) Chest: normal inspection of chest Gastrointestinal (Abdomen) normal bowel sounds, soft, nontender, no hepatosplenomegaly Musculoskeletal Extremities: extremities normal to inspection; no cyanosis and no clubbing Skin no rashes, warm and dry Neurologic moves all extremities and awake; no focal motor deficits Psychiatric A+Ox3, euthymic affect Lymphatic no lymphedema Discharge Plan Discharge Items Patient Disposition: Home - Self-Care Reason For Visit: UTI, PROSTATE ABSCESSES Discharge Diagnosis: UTI Prostatic abscess Urinary retention Thrombocytopenia Condition on Discharge: Good Activity: Resume your previous activity Non-emergency contact: Primary Care Provider and Urologist Call non-emergency contact if: you have any medication questions, your symptoms worsen and your temperature is above 101 Follow-up/Referrals: Skyler Rodriguez MD [Primary Care Provider] - 07/29/25 1:30 pm (Please follow-up within 1-2 weeks) Baron Soto DO [Physician] - (Please follow-up in 2 weeks. [facility] WILL CALL YOU WITH A HOSPITAL FOLLOW UP VISIT.) Diet: Heart Healthy Addtl Attending Provider Instructions: Please finish out the course of antibiotics with ciprofloxacin 500 mg by mouth twice a day for 20 more days. Follow-up with the urologist in 2 weeks. Please have your primary care physician recheck your complete blood count in 2 weeks to ensure that your platelets are returning to normal. If you develop any worsening abdominal pain, fevers, or do not feel right, please return to the hospital. If you have any trouble with getting your urine out completely, please call the urologist. Pending Studies at Discharge: Yes (Final blood culture results-no growth to date) Stand-Alone Forms: My [facility], Smoking Cessation Medications and DC Order Prescriptions: New tamsulosin 0.4 mg Capsule 0.4 mg PO BID Qty: 60 0RF ciprofloxacin HCl 500 mg tablet 500 mg PO BID Qty: 40 0RF Continued lisinopril 40 mg tablet 40 mg PO DAILY Qty: 90 3RF amlodipine 10 mg tablet 10 mg PO DAILY Qty: 90 2RF celecoxib [Celebrex] 100 mg capsule 100 mg PO BID Qty: 60 1RF fluticasone propionate 50 mcg/actuation spray,suspension 2 spray intranasal DAILY Qty: 16 11RF Rx Instructions: both nostrils Centrum Silver Men 300-600-300 mcg tablet 1 tab PO BID polyethylene glycol 3350 [Miralax] 17 gram/dose powder 17 gm PO DAILY PRN (Reason: Constipation) cephalexin 500 mg capsule 500 mg PO TID Qty: 360 0RF Lipo-Flavonoid Plus 200-100 mg Tablet 2 tab PO BID Metamucil 3.4 gram/5.4 gram Powder 1 tbsp PO BID famotidine [Pepcid] 40 mg tablet 40 mg PO DIRECTED Rx Instructions: 40 mg PO TAKE ONE IN THE MORNING , 1/2 IN THE EVENING; Discontinued alfuzosin 10 mg tablet extended release 24 hr 10 mg PO DAILY Qty: 90 3RF Rx Instructions: administer after the same meal each day Discharge Orders: Discharge Order (Routine); Ordered 07/15/25 Ordered By: Ashleigh Mai Admission Data Admit Date/Time: 07/12/25 16:14 Attending Provider: Ashleigh Mai Admit Provider: Ricardo Erickson Primary Care Provider: Skyler Rodriguez Other Providers: Baron Soto; Ricardo Erickson Hospital Stay Data Consultations 07/12/25 15:30 ED Decision to Admit Stat 07/12/25 16:09 Consult Urology Stat 07/12/25 19:31 Consult Urology Routine Diagnostic Imagining Performed 07/12/25 13:31 CT abd pelvis IV con only Stat Pending Results Patient Have Any Pending Studies at Discharge: Yes (Final blood culture results- no growth to date) Discharge Instructions Given to Patient (Per Discharging Provider) Please finish out the course of antibiotics with ciprofloxacin 500 mg by mouth twice a day for 20 more days. Follow-up with the urologist in 2 weeks. Please have your primary care physician recheck your complete blood count in 2 weeks to ensure that your platelets are returning to normal. If you develop any worsening abdominal pain, fevers, or do not feel right, please return to the hospital. If you have any trouble with getting your urine out completely, please call the urologist. Total Time Total Time Spent Total Time Spent (In Minutes): 35 minutes Total Time Includes: Examination of the Patient, Discharge Planning and Medication Reconciliation Coding Level of Care Code 37439 INP/OBS DISCH >30 MIN Diagnoses Sepsis A41.9 Abscess of prostate N41.2 Urinary retention due to benign prostatic hyperplasia N40.1; R33.8 Thrombocytopenia D69.6
[2025-07-15 12:39] VITALS: BP 120/76; PULSE 90; RESP 20; TEMP 98.1; O2SAT 93
--- NOTE | 2025-07-17 05:47 | Electrocardiogram Report ---
Test Reason : Blood Pressure : */* mmHG Vent. Rate : 86 BPM Atrial Rate : 86 BPM P-R Int : 184 ms QRS Dur : 102 ms QT Int : 364 ms P-R-T Axes : 57 -9 28 degrees QTcB Int : 435 ms Sinus rhythm with Premature atrial complexes Otherwise normal ECG When compared with ECG of 27-Nov-2020 11:30, Premature atrial complexes are now Present Confirmed by Patrick Cerda ([id number]) on 07/17/2025 5:46:42 AM Referred By: Alexey White Confirmed By: Patrick Cerda
== END 2025-07-15 16:32 | disposition home or self-care (01) | DRG 872 ==
LOC: SUATTDRO → ED 11:58 → 3W 16:14 → SUATTDRO 16:14 → 3W 18:43